=== PATIENT | male | born 1960 | race Caucasian/White ===

== ENCOUNTER → 2016-06-09 | Outpatient (REF) | payer OTHER ==
[2016-06-09 12:06] LABS: BASO % 0.3 % (0.0-1.0); EOS # 0.1 K/mm3 (0.0-0.50); EOS % 1.5 % (0.0-3.0); LARGE UNSTAINED CELL # 0.3 K/mm3 (0.0-0.4); LARGE UNSTAINED CELL % 3.3 % (0.0-4.0); LYMPH # 2.1 K/mm3 (1.5-4.5); LYMPH % 21.7 % (24.0-44.0); MEAN CORPUSCULAR HEMOGLOBIN 29.8 pg (27.0-33.0); MEAN CORPUSCULAR HGB CONC 33.6 g/dl (32.0-36.5); MEAN CORPUSCULAR VOLUME 88.7 fl (80.0-96.0); MONO # 0.4 K/mm3 (0.0-0.8); MONO % 4.4 % (0.0-5.0); NEUTROPHILS # 6.7 K/mm3 (1.8-7.7); NEUTROPHILS % 68.8 % (36.0-66.0); PLATELET COUNT, AUTOMATED 229 k/mm3 (150-450); RED CELL DISTRIBUTION WIDTH 13.1 % (11.5-14.5); WHITE BLOOD COUNT 9.8 K/mm3 (4.0-10.0)
[2016-06-09 12:13] LABS: ALBUMIN 3.7 GM/DL (3.2-5.2); ALBUMIN/GLOBULIN RATIO 1.32 (1.00-1.93); ALKALINE PHOSPHATASE 108 U/L (45-117); ALT/SGPT 34 U/L (12-78); ANION GAP 9 MEQ/L (8-16); AST/SGOT 21 U/L (15-37); BILIRUBIN,TOTAL 0.6 MG/DL (0.2-1.0); BLOOD UREA NITROGEN 16 MG/DL (7-18); CALCIUM LEVEL 9.1 MG/DL (8.5-10.1); CARBON DIOXIDE LEVEL 31 MEQ/L (21-32); CHLORIDE LEVEL 104 MEQ/L (98-107); CHOLESTEROL LEVEL 161 MG/DL (<200); CREATININE FOR GFR 0.83 MG/DL (0.70-1.30); FREE T4 1.01 NG/DL (0.76-1.46); GLOMERULAR FILTRATION RATE > 60.0 (>56); GLUCOSE, FASTING 134 MG/DL (70-105); POTASSIUM SERUM 3.8 MEQ/L (3.5-5.1); SODIUM LEVEL 144 MEQ/L (136-145); TOTAL PROTEIN 6.5 GM/DL (6.4-8.2); TRIGLYCERIDES LEVEL 190 MG/DL (<150); URIC ACID 5.3 MG/DL (3.5-7.2)
== END ==
LOC: M SFHCPLAZ 08:48
PROVIDERS: ATTEND Physician Assistant Medical
DX: I10 Essential (primary) hypertension (principal); M47.816 Spondylosis without myelopathy or radiculopathy, lumbar region; E03.9 Hypothyroidism, unspecified; E66.01 Morbid (severe) obesity due to excess calories; E78.5 Hyperlipidemia, unspecified; M10.9 Gout, unspecified

== ENCOUNTER → 2016-06-25 | Outpatient (CLI) | payer OTHER | LOC: M RAD 12:33 | PROVIDERS: ATTEND Physician Assistant Medical | DX: M47.816 Spondylosis without myelopathy or radiculopathy, lumbar region (principal); Z53.9 Procedure and treatment not carried out, unspecified reason ==

== ENCOUNTER → 2016-06-29 | Outpatient (CLI) | payer OTHER ==
--- NOTE | 2016-06-29 16:28 | REP ---
MRI LUMBAR SPINE WITHOUT CONTRAST: HISTORY: Degenerative disc disease. COMPARISON: 07/25/2013 Decreased signal intensity on T2-weighted images is present in the L2-3 through L4-5 intervertebral discs. The discs are decreased in height. These findings are consistent with disc degeneration. A diffuse disc bulge is present at the L1-2 level. There is minimal compression of the thecal sac. There is hypertrophy of the posterior articulating facets. The L1 nerves exit the neural foramina without compression. A diffuse disc bulge is present at the L2-3 level. There is hypertrophy of the ligamenta flava and posterior articulating facets. These findings produce minimal central canal stenosis. The L2 nerves exit the neural foramina without compression. A diffuse disc bulge is present at the L3-4 level. There is hypertrophy of the ligamenta flava and the posterior articulating facets. These findings produce minimal central canal stenosis. The L3 nerves exit the neural foramina without compression. A diffuse disc bulge is present at the L4-5 level. There is hypertrophy of the ligamenta flava and posterior articulating facets. These findings produce minimal central canal stenosis. The L4 nerves exit the neural foramina without compression. A diffuse disc bulge is present at the L5-S1 level. There is no thecal sac or nerve compression. There is hypertrophy of the posterior articulating facets. The L5 nerves exit the neural foramina without compression. The conus medullaris is normal in appearance terminating at the level of the L1-2 intervertebral disc. Increased signal intensity on T2-weighted images is present in the endplates of the L1 through L4 vertebral bodies. This represents degenerative change. IMPRESSION: 1. Diffuse disc bulge at the L1-2 level with minimal thecal sac compression. This is a new finding. 2. Minimal central canal stenosis at the L2-3 through L4-5 levels secondary to disc bulge, ligamentous and facet hypertrophy. 3. Diffuse disc bulge at the L5-S1 level without thecal sac or nerve compression. There is no other significant change. Signed by Oz Rushing MD 06/29/2016 04:29 P
== END ==
LOC: M RAD 14:19
PROVIDERS: ATTEND Physician Assistant Medical
DX: M47.816 Spondylosis without myelopathy or radiculopathy, lumbar region (principal); M51.26 Other intervertebral disc displacement, lumbar region; M48.06 Spinal stenosis, lumbar region

== ENCOUNTER → 2016-07-20 | Outpatient (CLI) | payer OTHER ==
--- NOTE | 2016-07-22 10:08 | SLEEPCENT ---
DATE OF PROCEDURE: 07/20/2016 ORDERED BY: Fabi Griffin Nocturnal polysomnography was performed for the titration of pressure therapy in this patient with a clinical diagnosis of obstructive sleep apnea syndrome confirmed by home testing revealing a respiratory event index of 60. For testing, the patient was fit with a ResMed Quattro full face mask of small size, 4 cm of water pressure were applied to the circuit and the lights were extinguished. 6 hours and 29 minutes of data were reviewed. There were only 16.5 minutes of sleep identified. Sleep latency was prolonged at 107 minutes. REM sleep was not achieved. Sleep architecture was unable to be assessed. Overall sleep efficiency was 4.3%. Patient's EKG showed a sinus rhythm with an average heart rate of 62 beats per minute. There were PVCs noted. EEG showed reasonably normal wave forms for those stages experienced and no focal events were identified. Multiple CPAP pressures were attempted. Bilevel therapy was also attempted. No optimal pressure could be identified based on the limited sleep during the test. IMPRESSION: Obstructive sleep apnea syndrome (G47.33). RECOMMENDATION: The patient should be encouraged to return for repeat titration, perhaps desensitization to CPAP would be helpful.
== END ==
LOC: M SLEEP 19:34
PROVIDERS: ATTEND Nurse Practitioner Adult Health
DX: G47.33 Obstructive sleep apnea (adult) (pediatric) (principal)

== ENCOUNTER → 2016-08-27 | Outpatient (REF) | payer OTHER ==
[2016-08-27 12:01] LABS: FREE T4 1.09 NG/DL (0.76-1.46)
== END ==
LOC: M SFHCPLAZ 08:49
PROVIDERS: ATTEND Physician Assistant Medical
DX: E03.9 Hypothyroidism, unspecified (principal); E11.8 Type 2 diabetes mellitus with unspecified complications

== ENCOUNTER → 2016-09-21 | Outpatient (CLI) | payer OTHER ==
[2016-09-21 12:50] LABS: FREE T4 0.99 NG/DL (0.76-1.46)
--- NOTE | 2016-09-21 12:57 | REP ---
Focused left breast sonography: History: Localized left breast pain. Positive family history of breast carcinoma. Findings: Scanning in the retroareolar region of the left breast where the patient indicates pain for the last 2 months demonstrate no evidence of cyst or mass. There is some hypoechoic retroareolar tissue consistent with minimal gynecomastia. Impression: BIRADS category 2 benign focused left breast sonography. Clinical followup is advised. Signed by Krzysztof Diallo MD 09/21/2016 03:17 P
== END ==
LOC: M LAB 11:16 → M RAD 11:16
PROVIDERS: ATTEND Physician Assistant Medical
DX: N64.4 Mastodynia (principal); N62 Hypertrophy of breast; E03.9 Hypothyroidism, unspecified

== ENCOUNTER → 2016-11-16 | Outpatient (REF) | payer OTHER ==
[2016-11-16 13:31] LABS: BASO % 0.4 % (0.0-1.0); EOS # 0.1 K/mm3 (0.0-0.50); EOS % 1.4 % (0.0-3.0); LARGE UNSTAINED CELL # 0.2 K/mm3 (0.0-0.4); LARGE UNSTAINED CELL % 2.6 % (0.0-4.0); LYMPH % 19.6 % (24.0-44.0); MEAN CORPUSCULAR HEMOGLOBIN 31.1 pg (27.0-33.0); MEAN CORPUSCULAR HGB CONC 34.2 g/dl (32.0-36.5); MONO # 0.6 K/mm3 (0.0-0.8); MONO % 6.4 % (0.0-5.0); NEUTROPHILS # 6.1 K/mm3 (1.8-7.7); NEUTROPHILS % 69.5 % (36.0-66.0); PLATELET COUNT, AUTOMATED 228 k/mm3 (150-450); RED CELL DISTRIBUTION WIDTH 13.8 % (11.5-14.5); WHITE BLOOD COUNT 8.8 K/mm3 (4.0-10.0)
[2016-11-16 13:53] LABS: PROLACTIN 8.8 NG/ML (2.1-17.7)
[2016-11-16 14:17] LABS: ALBUMIN 3.8 GM/DL (3.2-5.2); ALBUMIN/GLOBULIN RATIO 1.19 (1.00-1.93); ALKALINE PHOSPHATASE 113 U/L (45-117); ALT/SGPT 32 U/L (12-78); ANION GAP 7 MEQ/L (8-16); AST/SGOT 19 U/L (15-37); BILIRUBIN,TOTAL 0.6 MG/DL (0.2-1.0); BLOOD UREA NITROGEN 16 MG/DL (7-18); CALCIUM LEVEL 9.1 MG/DL (8.5-10.1); CARBON DIOXIDE LEVEL 29 MEQ/L (21-32); CHLORIDE LEVEL 106 MEQ/L (98-107); CREATININE FOR GFR 0.92 MG/DL (0.70-1.30); GLOMERULAR FILTRATION RATE > 60.0 (>56); GLUCOSE, FASTING 128 MG/DL (70-105); MAGNESIUM LEVEL 2.4 MG/DL (1.8-2.4); SODIUM LEVEL 142 MEQ/L (136-145)
[2016-11-16 22:38] LABS: MICROSCOPIC INDICATED? MAN YES (NO)
[2016-11-16 22:45] LABS: RBC, URINE NONE SEEN /hpf (0-3); SQUAMOUS EPITHELIAL CELL URINE SMALL AMOUNT /hpf (SMALL AMT); TRANSITIONAL EPI CELLS, URINE SMALL AMOUNT /hpf
[2016-11-16 22:46] LABS: GRANULAR CAST, URINE 0-1 /lpf
[2016-11-16 22:47] LABS: BACTERIA, URINE NONE SEEN
[2016-11-16 22:48] LABS: HYALINE CAST, URINE TNTC /lpf (0-1)
[2016-11-16 22:49] LABS: CALCIUM OXALATE CRYSTALS,URINE LARGE AMOUNT /hpf
[2016-11-16 22:50] LABS: MICROSCOPIC EXAM PERFORMED
== END ==
LOC: M SFHCPLAZ 10:41
PROVIDERS: ATTEND Family Medicine
DX: I10 Essential (primary) hypertension (principal); E11.8 Type 2 diabetes mellitus with unspecified complications; N62 Hypertrophy of breast; Z12.5 Encounter for screening for malignant neoplasm of prostate

== ENCOUNTER → 2016-11-27 | Outpatient (CLI) | payer OTHER ==
--- NOTE | 2016-11-27 13:04 | REP ---
Left shoulder three views: Comparison is the left humerus and 02/10/2007. The acromioclavicular joint is unremarkable. The glenohumeral joint is unremarkable. Mineralization is normal. There is no narrowing of the subacromial space. No cortical eburnation. No calcifications. No fracture or dislocation. Impression: Negative left shoulder. No narrowing of the subacromial space. No ligamentous or bursal calcifications. Signed by Clay Mcdowell MD 11/27/2016 12:55 P
== END ==
LOC: M RAD 12:43
PROVIDERS: ATTEND Family Medicine
DX: M75.42 Impingement syndrome of left shoulder (principal)

== ENCOUNTER → 2017-01-28 | Outpatient (CLI) | payer OTHER ==
--- NOTE | 2017-01-29 00:25 | ECWPNPC ---
PATIENT NAME: RADHA GARY : 1960 GENDER: MALE VISIT DATE: 01/28/2017 DISCHARGE DATE: 01/28/17 1409 VISIT LOCKED DATE TIME: PHYSICIAN: ROLDAN MCCORMICK PHYSICIAN PAGER NO: [phone] RESOURCE: ROLDAN MCCORMICK REASON FOR APPOINTMENT 1. BACK/SHOULDER HISTORY OF PRESENT ILLNESS NEW PATIENT CONSULT: 56 Y/O MALE REFERRED BY DR. ZABALA FOR EPIDURAL TRIAL FOR CHRONIC LOW BACK PAIN.PAIN BEGAN APPROXIMATLEY 20 YEARS AGO AFTER LIFTING HEAVY PACKAGES.PAIN IS LOCATED LEFT LOW BACK AND RADIATES INTO LEFT ANTERIOR THIGH.HAS BEEN TRIALED ON GABAPENTIN 100MG TID AND THIS IS NOT HELPING.PT WAS TRIALED RECENTLY BUT DIDNT HELP AND AGGREVATED PAIN.PAIN IS AGGREVATED BY PROLONGED STANDING OR SITTING.PAIN IS RELIEVED SOMEWHAT WITH LAYING DOWN ON LEFT SIDE.DENIES SUDDEN WEIGHT GAIN OR LOSS.NO RECENT FEVER OR ILLNESS.DENIES BOWEL OR BLADDER INCONTINENCE.RATING PAIN VAS 4/10. WHEN DID YOUR PAIN FIRST START? . BRIEFLY DESCRIBE HOW YOUR PAIN STARTED? . HOW DOES YOUR PAIN CHANGE WITH TIME? . DOES YOUR PAIN AWAKEN YOU FROM SLEEP? . HOW MANY HOURS OF SLEEP DO YOU NORMALLY GET? . ANY DIAGNOSTIC TESTING? . FACILITY WHERE TESTS WERE DONE? ____. PAIN TREATMENT TREATMENT YES CANCER HAVE YOU EVER HAD ANY TYPE OF CANCER?NO NO. PAIN SCREENING: PATIENT HAS A COMPLAINT OF ACUTE OR CHRONIC PAIN :YES FALL RISK SCREENING: SCREENING :NO FALLS IN THE PAST YEAR LEE INVENTORY: QUESTIONNAIRE ASSESSEDTBD SCORE VALUE CALCULATED TBD CURRENT MEDICATIONS TAKING EXCEDRIN EXTRA STRENGTH 250-250-65 MG TABLET 2 TABLETS NEEDED ORALLY TWICE A DAY TAKING BLOOD GLUCOSE TEST - STRIP ONETOUCH VERIO IN VITRO - E11.9 DAILY TAKING LANCETS - MISCELLANEOUS E11.9 - ONE TOUCH INTRADERMALLY DAILY WITH VERIO METER TAKING NORVASC 5 MG TABLET 1 TABLET ORALLY ONCE A DAY TAKING ATENOLOL 25 MG TABLET 1 TABLET ORALLY ONCE A DAY TAKING LISINOPRIL 40 MG TABLET 1 TABLET ORALLY ONCE A DAY TAKING ALLOPURINOL 300 MG TABLET 1 TABLET ORALLY QD TAKING ZOCOR 20 MG TABLET 1 TABLET ORALLY ONCE A DAY TAKING LEVOTHYROXINE SODIUM 100 MCG TABLET 1 TABLET ON AN EMPTY STOMACH IN THE MORNING ORALLY ONCE A DAY TAKING METFORMIN HCL ER 500 MG TABLET EXTENDED RELEASE 24 HOUR 1 TABLET ORALLY DAILY TAKING ONETOUCH VERIO - STRIP DIRECTED IN VITRO DX: E11.8 DAILY TAKING TRAZODONE HCL 50 MG TABLET 1 TABLET ORALLY BEFORE BEDTIME, AGAIN IN 3-4H IF NOT ASLEEP TAKING PROZAC 20 MG CAPSULE 2 CAPSULE IN THE MORNING ORALLY ONCE A DAY TAKING GABAPENTIN 100 MG CAPSULE DIRECTED ORALLY THREE TIMES DAILY TAKING CYCLOBENZAPRINE HCL 10 MG TABLET TAKE ONE TABLET BY MOUTH 3 TIMES A DAY ORALLY THREE TIMES A DAY NOT-TAKING FLEXERIL 10 MG TABLET 1 TABLET ORALLY THREE TIMES A DAY MEDICATION LIST REVIEWED AND RECONCILED WITH THE PATIENT PAST MEDICAL HISTORY GOUT, RECURRENT PODAGRA HYPERTENSION ANEMIA, SECONDARY TO IRON DEFICIENCY-JUNE 2006 EGD/COLONOSCOPY/DIVERTICULOSIS, ANTRITIS, DUODENITIS-SULLY OBESITY DEPRESSION INSOMNIA DJD, CERVICAL AND LUMBAR HYPERLIPIDEMIA 2B HYPOTHYROIDISM T2DM NID OBESITY, MORBID NONALCOHOLIC FATTY LIVER DISEASE-11/2010 NEGATIVE WORKUP, MILD BY 03/2015 CT A/P HYPOTHYROIDISM, AUTOIMMUNE LUMBAR DJD, MINIMAL CANAL STENOSIS L2-5, L5/S1 BULGE S COMPRESSION BY 06/2016 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 03/2012/ SMALL TUBULAR ADENOMAE-SULLY R URETHRAL STONE-PASSED ON OWN C FLOMAX L RENAL CYST-1 CM BY 03/2015 CT A/P ROSA MARIA, SEVERE-07/2016 SPLIT NPSG-RDI 102, SAO2 TO 86%-UNABLE TO FIND OPTIMAL PRESSURE-RECHLIN HEADACHES ALLERGIES AVELOX: NAUSEA: SIDE EFFECTS PENICILLIN (FOR ALLERGIES USE ONLY): DOES NOT WORK, OVERUSED: LACK OF THERAPEUTIC EFFECT HYDROCHLOROTHIAZIDE: VERTIGO: SIDE EFFECTS SURGICAL HISTORY CYST REMOVED RIGHT WRIST LEFT ELBOW BURSA SAC SURGERY LIPOMA REMOVED LUQ ABDOMEN 2014 COLONOSCOPY FAMILY HISTORY FATHER: , DIAGNOSED WITH CANCER MOTHER: , DIAGNOSED WITH CANCER 2 BROTHER(S) , 3 SISTER(S) . 1 SON(S) , 2 DAUGHTER(S) . 1 SISTER FROM LIVER FAILURE R/T ALCOHOL1 DAUGHTER STILLBORN. SOCIAL HISTORY GENERAL: TOBACCO USE ARE YOU A:NONSMOKER ALCOHOL SCREENING POINTS0 INTERPRETATIONNEGATIVE RECREATIONAL DRUG USE DRUG USE?NO YAZDANISM [id number] NONE LANGUAGE LANGUAGES SPOKEN:MONGOLIAN LEARNING BARRIERS / SPECIAL NEEDS BARRIERS TO LEARNING?NO HEARING IMPAIRED?NO VISION IMPAIRED?YES :CORRECTIVE LENSES COGNITIVELY IMPAIRED?NO READINESS TO LEARN?YES LEARNING PREFERENCES?NO LEARNING CAPABILITIES PRESENT?YES EMOTIONAL BARRIERS?NO SPECIAL DEVICES?NO [employer] [place] SUPPORT NEEDED?NO PAIN CLINIC PFS, CLERGY, PUBLIC HEALTH REFERRALS PFS REFERRAL NEEDED?NO CLERGY REFERRAL NEEDED?NO PUBLIC HEALTH REFERRAL NEEDED?NO WAS THE PROVIDER NOTIFIED OF ANY PERTINENT INFO?NO HAS THE PATIENT BEEN EDUCATED REGARDING HIS/HER PLAN OF CARE?YES HAS THE PATIENT BEEN EDUCATED REGARDING PAIN, THE RISK FOR PAIN, THE IMPORTANCE OF EFFECTIVE PAIN MANAGEMENT, AND THE PAIN ASSESSMENT PROCESS?YES PATIENT: ____. ADVANCE DIRECTIVES HEALTH CARE PROXY?NO WOULD YOU LIKE MORE INFORMATION?NO DO YOU HAVE A DNR?NO WOULD YOU LIKE MORE INFORMATION?NO LIVING WILL?NO WOULD YOU LIKE MORE INFORMATION?NO POWER OF LEAD RETAIL SALES ASSOCIATE?NO WOULD YOU LIKE MORE INFORMATION?NO HOSPITALIZATION/MAJOR DIAGNOSTIC PROCEDURE LEFT ELBOW INFECTION REVIEW OF SYSTEMS REVIEWED BY: PROVIDER: ROLDAN NOEL . CONSTITUTIONAL: ANY CHANGE IN YOUR MEDICAL CONDITION? NO . CHILLS NO . FEVER NO . INFECTION: DO YOU HAVE NEW INFECTIONS? NO . DO YOU HAVE HISTORY OF MRSA? NO . MUSCULOSKELETAL: ANY NEW PATTERNS OF PAIN OR NUMBNESS? NO . SYTEMIC LUPUS NO . GASTROENTEROLOGY: ANY NEW CHANGE IN BOWEL CONTROL? NO . BARRETTS ESOPHAGUS NO . CIRRHOSIS NO . HEPATITIS NO . LIVER FAILURE NO . ACID REFLUX NO . UNEXPLAINED WEIGHT LOSS NO . GENITOURINARY: ANY NEW CHANGE IN BLADDER CONTROL? NO . IS THERE A CHANCE YOU COULD BE ? NO . HEMATOLOGY/LYMPH: DO YOU TAKE ANY BLOOD THINNERS? (FOR EXAMPLE- COUMADIN, PLAVIX, AGGRENOX, PLATEL, PRADAXA, OR XARELTO) NO . WHEN WAS YOUR LAST DOSE? DATE: TIME: . LOW PLATELET COUNT NO . SICKLE CELL DISEASE NO . VON WILLIEBRANDS NO . FACTOR V LEIDEN NO . THALLASEMIA NO . ANEMIA NO . EASY BRUISING NO . NEUROLOGY: HAVE YOU FALLEN IN THE PAST 6 MONTHS? NO . ANY NEW EXTREMITY NUMBNESS OR WEAKNESS? NO . HEAD INJURY NO . DEMENTIA NO . CEREBRAL PALSY NO . MULTIPLE SCLEROSIS NO . DIZZINESS NO . HEADACHE YES . STROKES NO . VERTIGO NO . CARDIOLOGY: DO YOU HAVE A PACEMAKER OR DEFIBRILLATOR? NO . ANGINA NO . HEART ATTACK NO . HEART SURGERY NO . CONGESTIVE HEART FAILURE/FLUID OVERLOAD NO . CHEST PAIN NO . HIGH BLOOD PRESSURE ON MEDICATION(S) . IRREGULAR HEART BEAT NO . RESPIRATORY: HAVE YOU BEEN SICK IN THE PAST WEEK? NO . FEVER NO . FLU LIKE SYMPTOMS? NO . CPAP NO . BYPAP NO . ASTHMA NO . EMPHYSEMA NO . CHRONIC LUNG DISEASES NO . SHORTNESS OF BREATH ON EXERTION YES . DO YOU USE ANY TYPE OF TOBACCO (SMOKE, SMOKELESS, CHEW)? NO . COUGH NO . SNORING NO . INTEGUMENTARY: DO YOU HAVE ANY RASHES OR OPEN SORES? NO . ALLERGIC/IMMUNO: ARE YOU ALLERGIC TO SHELLFISH OR IV DYE? NO . ANY NEW ALLERGIES? NO . PSYCHIATRIC: DO YOU HAVE THOUGHTS OF HURTING YOURSELF OR SOMEONE ELSE? NO . ARE YOU ABUSED, NEGLECTED, OR IN AN UNSAFE ENVIRONMENT? NO . ENDOCRINOLOGY: ARE YOU DIABETIC? YES . THYROID DISORDER HYPOTHYROID . OTHER: DO YOU NEED ANY PRESCRIPTIONS? NO . IF YES, PLEASE LIST: ____ . ANY NEW PROBLEMS WITH YOUR MEDICATIONS? NO . WHEN DID YOU LAST EAT? ____ . WHEN DID YOU LAST DRINK? ____ . WHAT DID YOU LAST DRINK? ____ . NAME OF PERSON DRIVING YOU HOME? ____ . DO YOU HAVE ANY OTHER QUESTIONS OR CONCERNS NO . VITAL SIGNS WT 364 LBS, HT 73 IN, BMI 48.02 INDEX, BP 140/98 MM HG, HR 63 /MIN, RR 18 /MIN, TEMP 97.8 F, OXYGEN SAT % 94%, SAFE IN ENV? (Y/N) YES, REVIEWED BY: NATHALIE(DONE AT 1314). EXAMINATION GENERAL EXAMINATION: GENERAL APPEARANCE:COMFORTABLE. PSYCHAFFECT NORMAL. NECK:TRACHEA MIDLINE. NO CERVICAL OR SUPRACLAVICULAR LYMPHADENOPATHY NOTED. LUNGS:LUNG MARROQUIN ARE CLEAR TO AUSCULTATION BILATERALLY. GOOD MOVEMENT OF AIR. HEART:S1, S2 IN A REGULAR RATE AND RHYTHM. NO SIGNIFICANT MURMURS, RUBS OR GALLOPS NOTED. LUMBAR SPINE/LOWER BACK: PALPATION:TENDER OVER LEFT L1/2-L2/3 FACET/PARASPINAL., NO SI JOINT TENDERNESS. MOTOR SYSTEM:5/5 BLE. SENSORY EXAM:REPORTS DECREASE IN SENSATION TO LIGHT TOUCH LEFT THIGH. MRI L/S [id number]. THORACIC SPINE/UPPER BACK: MYOFASCIAL TRIGGER POINTS:LEFT LOWER THORACIC PARASPINAL/SCAPULAR. ASSESSMENTS DEGENERATIVE DISC DISEASE, LUMBAR - M51.36 (PRIMARY) LUMBAR FACET ARTHROPATHY - M12.88 TREATMENT DEGENERATIVE DISC DISEASE, LUMBAR NOTES: LESI L4/5/INTRALAMINAR,WHAT IS LUMBAR EPIDURAL INJECTION? MATERIAL WAS PRINTED,LUMBAR EPIDURAL INJECTION: RECOVERY AT HOME MATERIAL WAS PRINTED,LUMBAR EPIDURAL INJECTION: YOUR PROCEDURE MATERIAL WAS PRINTED. PREVENTIVE MEDICINE PAIN CLINIC TEACHING: PROCEDURE TEACHING LUMBAR EPIDURAL STEROID INJECTION PRE-PROCEDURE TEACHING DONE. ADDITIONAL INFORMATION GIVEN. PATIENT VERBALIZES UNDERSTANDING.. PROCEDURE CODES FA211 ESTABILISHED PATIENT [facility] CHARGE DISPOSITION & COMMUNICATION FOLLOW UP 2WK POST (REASON: LESI L4/5/INTRALAMINAR) ELECTRONICALLY SIGNED BY SADIE WARNER ON 01/28/2017 AT 04:40 PM EDT DISCLAIMER : THIS IS A VISIT SUMMARY EXTRACTED FROM THE [employer] CHART. IT IS NOT A COPY OF THE [employer] PROGRESS NOTE. SHANIKA
== END ==
LOC: M PAIN 13:00
PROVIDERS: ATTEND Nurse Practitioner Family
DX: M51.36 Other intervertebral disc degeneration, lumbar region (principal); M12.88 Other specific arthropathies, not elsewhere classified, other specified site; M54.5 Low back pain; G89.29 Other chronic pain; I10 Essential (primary) hypertension; E11.8 Type 2 diabetes mellitus with unspecified complications; E03.9 Hypothyroidism, unspecified; E78.2 Mixed hyperlipidemia; F32.9 Major depressive disorder, single episode, unspecified; Z79.899 Other long term (current) drug therapy; Z79.84 Long term (current) use of oral hypoglycemic drugs; Z88.0 Allergy status to penicillin; Z88.1 Allergy status to other antibiotic agents; Z88.8 Allergy status to other drugs, medicaments and biological substances

== ENCOUNTER → 2017-02-10 | Outpatient (CLI) | payer OTHER ==
[~2017-02-10] MED LIST: ISOVUE-M 300 61% 15ML VIAL (Q9967) As Ordered ONE; LIDOCAINE 1% SDV INJ 30 ML VIAL As Ordered ONE; diazePAM 5 MG TAB As Ordered ONE; methylPREDNISolone SUSP 40 MG/ML (DEPO-medrol) VIAL (J1030) As Ordered ONE; oxyCODONE 5MG TAB As Ordered ONE
--- NOTE | 2017-02-10 13:19 | REP ---
Partial lumbar spine series: Single view. History: Lumbar epidural steroid injection for pain. 12 seconds of fluoroscopy time is reported. Findings: A single fluoroscopically obtained last image hold spot radiograph of the lumbar spine documents needle position and contrast injection associated with injection procedure. Signed by Krzysztof Diallo MD 02/10/2017 01:27 P
--- NOTE | 2017-02-16 00:23 | ECWPNPC ---
PATIENT NAME: RADHA GARY : 1960 GENDER: MALE VISIT DATE: 02/10/2017 DISCHARGE DATE: 02/10/17 1238 VISIT LOCKED DATE TIME: PHYSICIAN: HEYDI IBARRA PHYSICIAN PAGER NO: [phone] RESOURCE: HEYDI IBARRA REASON FOR APPOINTMENT 1. LESI L4/5/INTRALAMINAR HISTORY OF PRESENT ILLNESS HISTORY OF PRESENT ILLNESS: PAIN THE PATIENT DESCRIBES THE PAIN... FALL RISK SCREENING: SCREENING :NO FALLS IN THE PAST YEAR CURRENT MEDICATIONS TAKING EXCEDRIN EXTRA STRENGTH 250-250-65 MG TABLET 2 TABLETS NEEDED ORALLY TWICE A DAY, NOTES: 02-09-17899 TAKING BLOOD GLUCOSE TEST - STRIP ONETOUCH VERIO IN VITRO - E11.9 DAILY TAKING LANCETS - MISCELLANEOUS E11.9 - ONE TOUCH INTRADERMALLY DAILY WITH VERIO METER TAKING NORVASC 5 MG TABLET 1 TABLET ORALLY ONCE A DAY, NOTES: 02-10-17699 TAKING ATENOLOL 25 MG TABLET 1 TABLET ORALLY ONCE A DAY, NOTES: 02-10-17799 TAKING LISINOPRIL 40 MG TABLET 1 TABLET ORALLY ONCE A DAY TAKING ALLOPURINOL 300 MG TABLET 1 TABLET ORALLY QD, NOTES: 02-09-17699 TAKING ZOCOR 20 MG TABLET 1 TABLET ORALLY ONCE A DAY, NOTES: [id number] TAKING METFORMIN HCL ER 500 MG TABLET EXTENDED RELEASE 24 HOUR 1 TABLET ORALLY DAILY, NOTES: 02-09-17799 TAKING ONETOUCH VERIO - STRIP DIRECTED IN VITRO DX: E11.8 DAILY TAKING TRAZODONE HCL 50 MG TABLET 1 TABLET ORALLY BEFORE BEDTIME, AGAIN IN 3-4H IF NOT ASLEEP, NOTES: 02-09-172099 TAKING PROZAC 20 MG CAPSULE 2 CAPSULE IN THE MORNING ORALLY ONCE A DAY, NOTES: 02-09-17799 TAKING GABAPENTIN 100 MG CAPSULE DIRECTED ORALLY THREE TIMES DAILY, NOTES: 02-09-172099 TAKING CYCLOBENZAPRINE HCL 10 MG TABLET TAKE ONE TABLET BY MOUTH 3 TIMES A DAY ORALLY THREE TIMES A DAY, NOTES: 02-09-172099 TAKING LEVOTHYROXINE SODIUM 100 MCG TABLET 1 TABLET ON AN EMPTY STOMACH IN THE MORNING ORALLY ONCE A DAY, NOTES: 02-10-17699 UNKNOWN FLEXERIL 10 MG TABLET 1 TABLET ORALLY THREE TIMES A DAY MEDICATION LIST REVIEWED AND RECONCILED WITH THE PATIENT PAST MEDICAL HISTORY GOUT, RECURRENT PODAGRA HYPERTENSION ANEMIA, SECONDARY TO IRON DEFICIENCY-JUNE 2006 EGD/COLONOSCOPY/DIVERTICULOSIS, ANTRITIS, DUODENITIS-SULLY OBESITY DEPRESSION INSOMNIA DJD, CERVICAL AND LUMBAR HYPERLIPIDEMIA 2B HYPOTHYROIDISM T2DM NID OBESITY, MORBID NONALCOHOLIC FATTY LIVER DISEASE-11/2010 NEGATIVE WORKUP, MILD BY 03/2015 CT A/P HYPOTHYROIDISM, AUTOIMMUNE LUMBAR DJD, MINIMAL CANAL STENOSIS L2-5, L5/S1 BULGE S COMPRESSION BY 06/2016 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 CONSTITUTIONAL: ANY CHANGE IN YOUR MEDICAL CONDITION? NO . CHILLS NO . FEVER NO . INFECTION: DO YOU HAVE NEW INFECTIONS? NO . DO YOU HAVE HISTORY OF MRSA? NO . MUSCULOSKELETAL: ANY NEW PATTERNS OF PAIN OR NUMBNESS? NO . GASTROENTEROLOGY: ANY NEW CHANGE IN BOWEL CONTROL? NO . GENITOURINARY: ANY NEW CHANGE IN BLADDER CONTROL? NO . IS THERE A CHANCE YOU COULD BE ? NO . HEMATOLOGY/LYMPH: DO YOU TAKE ANY BLOOD THINNERS? (FOR EXAMPLE- COUMADIN, PLAVIX, AGGRENOX, PLATEL, PRADAXA, OR XARELTO) NO . WHEN WAS YOUR LAST DOSE? DATE: TIME: . NEUROLOGY: HAVE YOU FALLEN IN THE PAST 6 MONTHS? NO . ANY NEW EXTREMITY NUMBNESS OR WEAKNESS? NO . CARDIOLOGY: DO YOU HAVE A PACEMAKER OR DEFIBRILLATOR? NO . RESPIRATORY: HAVE YOU BEEN SICK IN THE PAST WEEK? NO . FEVER NO . FLU LIKE SYMPTOMS? NO . COUGH NO . INTEGUMENTARY: DO YOU HAVE ANY RASHES OR OPEN SORES? NO . ALLERGIC/IMMUNO: ARE YOU ALLERGIC TO SHELLFISH OR IV DYE? NO . ANY NEW ALLERGIES? NO . PSYCHIATRIC: DO YOU HAVE THOUGHTS OF HURTING YOURSELF OR SOMEONE ELSE? NO . ARE YOU ABUSED, NEGLECTED, OR IN AN UNSAFE ENVIRONMENT? NO . ENDOCRINOLOGY: ARE YOU DIABETIC? YES FS 140 . OTHER: DO YOU NEED ANY PRESCRIPTIONS? NO . IF YES, PLEASE LIST: ____ . ANY NEW PROBLEMS WITH YOUR MEDICATIONS? NO . WHEN DID YOU LAST EAT? ____1230 THIS MORNING . WHEN DID YOU LAST DRINK? ____8 AM THIS MORNING . WHAT DID YOU LAST DRINK? ____ . NAME OF PERSON DRIVING YOU HOME? ____JANICE - . DO YOU HAVE ANY OTHER QUESTIONS OR CONCERNS NO . VITAL SIGNS WT 363 LBS, HT 73 IN, BMI 47.89 INDEX, BP 142/90 MM HG, HR 69 /MIN, RR 18 /MIN, TEMP 96.9 F, OXYGEN SAT % 100, REVIEWED BY: NL. ASSESSMENTS INTERVERTEBRAL DISC DISORDER WITH RADICULOPATHY OF LUMBAR REGION - M51.16 (PRIMARY) PROCEDURES PRE PROCEDURE DIAGNOSIS LUMBAR DISC DISORDER WITH RADICULOPATHY POST PROCEDURE DIAGNOSIS LUMBAR DISC DISORDER WITH RADICULOPATHY PROCEDURE LUMBAR EPIDURAL STEROID INJECTION UNDER FLUOROSCOPIC GUIDANCE SURGEON DR. HEYDI IBARRA RADIATOR MECHANIC NONE ANESTHESIA LOCAL PRE PROCEDURE NOTE THE PATIENT HAS A HISTORY OF CHRONIC LOW BACK PAIN. I EVALUATE THE PATIENT AND REVIEWED THE CHART. I WENT OVER THE RISKS, ALTERNATIVES, AND BENEFITS ASSOCIATED WITH THIS PROCEDURE. THE PATIENT WOULD LIKE TO PROCEED AND GIVE CONSENT TO PERFORMED THE PROCEDURE. THE PATIENT DENIES UNEXPLAINABLE WEIGHT LOSS, FEVER, CHILLS, OR NEW CHANGES IN URINARY OR BOWEL CONTROL. DESCRIPTION OF PROCEDURE THE PATIENT WAS BROUGHT TO THE PROCEDURE ROOM AND PLACED IN THE PRONE POSITION. THE LUMBOSACRAL AREA WAS CLEANED WITH BETADINE SOLUTION AND DRAPED ASEPTICALLY. THE PROCEDURE WAS DONE UNDER STERILE CONDITIONS. I CHECKED LATERALITY AND THE LEVEL WHERE THE PROCEDURE WAS GOING TO BE PERFORMED WITH THE PATIENT AND THE SUPPORTING STAFF AT THE MOMENT OF THE TIME OUT IN THE PROCEDURE ROOM. UNDER FLUOROSCOPIC GUIDANCE, THE TARGET POINT WAS SELECTED AT THE INTERLAMINAR LEVEL OF L4-L5. LIDOCAINE WAS USED TO NUMB THE SKIN AND THE SUBCUTANEOUS TISSUE BELOW IT. EPIDURAL TUOHY NEEDLE, 17-GAUGE, WAS ADVANCED UNDER FLUOROSCOPIC GUIDANCE AND FOLLOWING PATIENT FEEDBACK UNTIL THE EPIDURAL SPACE WAS REACHED, 7 CM DEEP INTO THE SKIN BY THE LOSS OF RESISTANCE TECHNIQUE. ISOVUE M DYE 30%, 0.25 ML, WAS INJECTED SHOWING ADEQUATE SPREAD OF THE DYE. THEN, A SOLUTION OF 3 ML OF NORMAL SALINE WITH DEPO-MEDROL 60 MG WAS INJECTED SLOWLY FOLLOWING PATIENT FEEDBACK. THERE WAS NO EVIDENCE OF BLOOD, PARESTHESIA OR CEREBROSPINAL FLUID DURING THE PROCEDURE. THE PATIENT WAS SENT TO THE RECOVERY ROOM. THE PATIENT WAS MOVING THE EXTREMITIES AND DOING WELL. THERE WAS NO COMPLICATION DURING THE PROCEDURE. FLUOROSCOPY TIME WAS 12 SECONDS. POST PROCEDURE NOTE THE PATIENT WILL BE SEEN IN A FOLLOW UP IN THE NEXT FEW WEEKS. INSTRUCTIONS WERE GIVEN, QUESTIONS WERE ANSWERED, AND THE PATIENT EXPRESSED UNDERSTANDING AND AGREES WITH THE PLAN. I, ROSANGELA KASPER, DOCUMENTED THE ABOVE INFORMATION ACTING A SCRIBE FOR DR. IBARRA. I HAVE REVIEWED THE ABOVE DOCUMENT, WRITTEN BY ROSANGELA KASPER SCRIBE AND I VERIFY THAT IT IS [facility] FLUORO GUIDE SPINE INJECTION (PAIN)[id number] PROCEDURE CODES 14150 LUMBAR/SACRAL W/ IMAGING 6045F RADXPS IN END [id number] PXD DISPOSITION & COMMUNICATION FOLLOW UP 3 WEEKS ELECTRONICALLY SIGNED BY HEYDI IBARRA MD ON 02/15/2017 AT 03:38 PM EDT DISCLAIMER : THIS IS A VISIT SUMMARY EXTRACTED FROM THE [employer] CHART. IT IS NOT A COPY OF THE [employer] PROGRESS NOTE. MTDD
== END ==
LOC: M PAIN 10:15
PROVIDERS: ATTEND Anesthesiology
DX: G89.29 Other chronic pain (principal); M51.16 Intervertebral disc disorders with radiculopathy, lumbar region; M54.5 Low back pain; E03.9 Hypothyroidism, unspecified; I10 Essential (primary) hypertension; F32.9 Major depressive disorder, single episode, unspecified; E11.8 Type 2 diabetes mellitus with unspecified complications; Z79.84 Long term (current) use of oral hypoglycemic drugs; Z79.899 Other long term (current) drug therapy; Z88.0 Allergy status to penicillin; Z88.1 Allergy status to other antibiotic agents; Z88.8 Allergy status to other drugs, medicaments and biological substances
CPT/HCPCS: 62323; J1030; Q9967

== ENCOUNTER → 2017-02-25 | Outpatient (REF) | payer OTHER ==
[2017-02-25 16:06] LABS: CALCIUM OXALATE CRYSTALS SMALL
[2017-02-25 17:55] LABS: ALBUMIN 3.8 GM/DL (3.2-5.2); ALBUMIN/GLOBULIN RATIO 1.31 (1.00-1.93); ALKALINE PHOSPHATASE 117 U/L (45-117); ALT/SGPT 33 U/L (12-78); ANION GAP 7 MEQ/L (8-16); AST/SGOT 17 U/L (15-37); BILIRUBIN,TOTAL 0.5 MG/DL (0.2-1.0); BLOOD UREA NITROGEN 19 MG/DL (7-18); CALCIUM LEVEL 9.2 MG/DL (8.5-10.1); CARBON DIOXIDE LEVEL 32 MEQ/L (21-32); CHLORIDE LEVEL 104 MEQ/L (98-107); CHOLESTEROL LEVEL 162 MG/DL (<200); CREATININE FOR GFR 0.89 MG/DL (0.70-1.30); GLOMERULAR FILTRATION RATE > 60.0 (>56); GLUCOSE, FASTING 127 MG/DL (70-105); POTASSIUM SERUM 4.1 MEQ/L (3.5-5.1); SODIUM LEVEL 143 MEQ/L (136-145); TOTAL PROTEIN 6.7 GM/DL (6.4-8.2); TRIGLYCERIDES LEVEL 209 MG/DL (<150)
[2017-02-28 00:06] LABS: BENZODIAZEPINES, URINE SCREEN Negative ng/mL (Cutoff=200); METHADONE, URINE SCREEN Negative ng/mL (Cutoff=300); pH, URINE 5.4 (4.5-8.9)
== END ==
LOC: M SFHCPLAZ 12:50
PROVIDERS: ATTEND Family Medicine
DX: E11.8 Type 2 diabetes mellitus with unspecified complications (principal); I10 Essential (primary) hypertension; Z12.5 Encounter for screening for malignant neoplasm of prostate

== ENCOUNTER → 2017-05-20 | Outpatient (REF) | payer OTHER ==
[2017-05-20 16:39] LABS: BASO % 0.3 % (0.0-1.0); EOS # 0.1 10^3/uL (0.0-0.50); EOS % 1.6 % (0.0-3.0); HEMATOCRIT 42.2 % (42.0-52.0); HEMOGLOBIN 14.2 g/dl (14.0-18.0); IMMATURE GRANULOCYTE % 0.3 % (0-0); LYMPH % 24.7 % (24.0-44.0); MEAN CORPUSCULAR HEMOGLOBIN 30.5 pg (27.0-33.0); MEAN CORPUSCULAR HGB CONC 33.6 g/dl (32.0-36.5); MEAN CORPUSCULAR VOLUME 90.6 fl (80.0-96.0); MONO # 0.6 10^3/uL (0.0-0.8); MONO % 7.1 % (0.0-5.0); NEUTROPHILS # 5.3 10^3/uL (1.8-7.7); PLATELET COUNT, AUTOMATED 231 10^3/uL (150-450); RED BLOOD COUNT 4.66 10^6/uL (4.30-6.10); RED CELL DISTRIBUTION WIDTH 13.1 % (11.5-14.5); WHITE BLOOD COUNT 7.9 10^3/uL (4.0-10.0)
[2017-05-20 18:21] LABS: ESTIMATED AVERAGE GLUCOSE 131 MG/DL (60-110); HEMOGLOBIN A1c 6.2 %
[2017-05-20 18:39] LABS: ALBUMIN 3.8 GM/DL (3.2-5.2); ALBUMIN/GLOBULIN RATIO 1.27 (1.00-1.93); ALKALINE PHOSPHATASE 100 U/L (45-117); ALT/SGPT 33 U/L (12-78); ANION GAP 8 MEQ/L (8-16); AST/SGOT 20 U/L (7-37); BILIRUBIN,TOTAL 0.4 MG/DL (0.2-1.0); BLOOD UREA NITROGEN 13 MG/DL (7-18); CALCIUM LEVEL 8.5 MG/DL (8.5-10.1); CARBON DIOXIDE LEVEL 32 MEQ/L (21-32); CHLORIDE LEVEL 106 MEQ/L (98-107); CREATININE FOR GFR 0.91 MG/DL (0.70-1.30); FERRITIN 96 NG/ML (26-388); FREE T4 1.22 NG/DL (0.76-1.46); GLOMERULAR FILTRATION RATE > 60.0 (>56); GLUCOSE, FASTING 117 MG/DL (70-105); IRON (FE) 43 UG/DL (65-175); MAGNESIUM LEVEL 2.5 MG/DL (1.8-2.4); PERCENT SATURATION 16.4 % (19.7-50.0); POTASSIUM SERUM 3.9 MEQ/L (3.5-5.1); SODIUM LEVEL 146 MEQ/L (136-145); TOTAL IRON BINDING CAPACITY 262 UG/DL (250-450); TOTAL PROTEIN 6.8 GM/DL (6.4-8.2); URIC ACID 6.2 MG/DL (3.5-7.2)
== END ==
LOC: M SFHCPLAZ 14:10
DX: E03.9 Hypothyroidism, unspecified (principal); M10.9 Gout, unspecified; E11.8 Type 2 diabetes mellitus with unspecified complications; I10 Essential (primary) hypertension; G25.81 Restless legs syndrome

== ENCOUNTER → 2017-05-25 | Outpatient (CLI) | payer OTHER | LOC: M RAD 16:17 | DX: M47.22 Other spondylosis with radiculopathy, cervical region (principal); M50.30 Other cervical disc degeneration, unspecified cervical region; M17.0 Bilateral primary osteoarthritis of knee | CPT/HCPCS: 72052 ==

== ENCOUNTER → 2017-07-12 | Outpatient (CLI) | payer OTHER | LOC: M RAD 17:09 | DX: R51 Headache (principal) | CPT/HCPCS: 70450 ==

== ENCOUNTER → 2017-10-26 | Outpatient (REF) | payer OTHER ==
[2017-10-26 12:09] LABS: BASO % 0.4 % (0.0-1.0); EOS # 0.1 10^3/uL (0.0-0.50); EOS % 1.7 % (0.0-3.0); HEMATOCRIT 42.3 % (42.0-52.0); HEMOGLOBIN 14.5 g/dl (13.5-17.5); LYMPH % 23.3 % (24.0-44.0); MEAN CORPUSCULAR HEMOGLOBIN 30.3 pg (27.0-33.0); MEAN CORPUSCULAR HGB CONC 34.3 g/dl (32.0-36.5); MEAN CORPUSCULAR VOLUME 88.5 fl (80.0-96.0); MONO # 0.6 10^3/uL (0.0-0.8); MONO % 7.6 % (0.0-5.0); NEUTROPHILS # 5.5 10^3/uL (1.8-7.7); PLATELET COUNT, AUTOMATED 215 10^3/uL (150-450); RED BLOOD COUNT 4.78 10^6/uL (4.30-6.10); RED CELL DISTRIBUTION WIDTH 13.3 % (11.5-14.5); RETIC HEMOGLOBIN EQUIVALENT 34.7 pg (24-36); RETICULOCYTE # 108.5 10^9/L (17-77); RETICULOCYTE % 2.3 % (0.5-1.5); WHITE BLOOD COUNT 8.4 10^3/uL (4.0-10.0)
[2017-10-26 12:55] LABS: VITAMIN B12 LEVEL 559 PG/ML (247-911)
[2017-10-26 13:04] LABS: ALBUMIN 3.5 GM/DL (3.2-5.2); ALBUMIN/GLOBULIN RATIO 1.17 (1.00-1.93); ALKALINE PHOSPHATASE 101 U/L (45-117); ALT/SGPT 24 U/L (12-78); ANION GAP 11 MEQ/L (8-16); AST/SGOT 10 U/L (7-37); BILIRUBIN,TOTAL 0.5 MG/DL (0.2-1.0); BLOOD UREA NITROGEN 16 MG/DL (7-18); CALCIUM LEVEL 8.3 MG/DL (8.5-10.1); CARBON DIOXIDE LEVEL 28 MEQ/L (21-32); CHLORIDE LEVEL 106 MEQ/L (98-107); CREATININE FOR GFR 0.81 MG/DL (0.70-1.30); GLOMERULAR FILTRATION RATE > 60.0 (>56); GLUCOSE, FASTING 143 MG/DL (70-100); POTASSIUM SERUM 3.7 MEQ/L (3.5-5.1); SODIUM LEVEL 145 MEQ/L (136-145); TOTAL PROTEIN 6.5 GM/DL (6.4-8.2)
[2017-10-26 18:19] LABS: ESTIMATED AVERAGE GLUCOSE 126 MG/DL (60-110)
== END ==
LOC: M SFHCPLAZ 10:09
DX: I10 Essential (primary) hypertension (principal); E11.8 Type 2 diabetes mellitus with unspecified complications

== ENCOUNTER → 2017-11-13 | Outpatient (CLI) | payer OTHER | LOC: M RAD 10:14 | DX: M19.90 Unspecified osteoarthritis, unspecified site (principal) | CPT/HCPCS: 72142 ==

== ENCOUNTER 2017-12-18 19:34 | Emergency (ER) | payer OTHER | END 2017-12-18 22:55 | disposition home or self-care (01) | LOC: M ED 19:34 | DX: S90.31XA Contusion of right foot, initial encounter (principal); X58.XXXA Exposure to other specified factors, initial encounter; Y92.89 Other specified places as the place of occurrence of the external cause; I10 Essential (primary) hypertension; E11.9 Type 2 diabetes mellitus without complications; E78.5 Hyperlipidemia, unspecified; D64.9 Anemia, unspecified; E03.9 Hypothyroidism, unspecified; Z79.899 Other long term (current) drug therapy; Z79.890 Hormone replacement therapy | CPT/HCPCS: 73630 ==

== ENCOUNTER → 2018-02-14 | Outpatient (REF) | payer OTHER ==
[2018-02-14 18:44] LABS: PTH INTACT 58.9 PG/ML (18.5-88.0)
[2018-02-14 18:45] LABS: ALBUMIN 3.4 GM/DL (3.2-5.2); ALBUMIN/GLOBULIN RATIO 1.06 (1.00-1.93); ALKALINE PHOSPHATASE 108 U/L (45-117); ALT/SGPT 25 U/L (12-78); ANION GAP 7 MEQ/L (8-16); AST/SGOT 10 U/L (7-37); BILIRUBIN,TOTAL 0.3 MG/DL (0.2-1.0); BLOOD UREA NITROGEN 20 MG/DL (7-18); C REACTIVE PROTEIN QUANTITATIV 1.02 MG/DL (0.00-0.30); CALCIUM LEVEL 8.5 MG/DL (8.5-10.1); CARBON DIOXIDE LEVEL 30 MEQ/L (21-32); CHLORIDE LEVEL 108 MEQ/L (98-107); CHOLESTEROL LEVEL 174 MG/DL (<200); CHOLESTEROL RISK RATIO 3.702 (<5); CPK CREATINE PHOSPHOKINASE 53 U/L (39-308); CREATININE FOR GFR 0.79 MG/DL (0.70-1.30); FREE T4 1.14 NG/DL (0.76-1.46); GLOMERULAR FILTRATION RATE > 60.0 (>56); GLUCOSE, FASTING 95 MG/DL (70-100); HDL CHOLESTEROL 47 MG/DL (>40); LDL CHOLESTEROL 86 MG/DL (<100); NON-HDL-C 127 MG/DL; POTASSIUM SERUM 4.1 MEQ/L (3.5-5.1); PSA SCREENING 0.49 NG/ML (< 4.0); SODIUM LEVEL 145 MEQ/L (136-145); TOTAL PROTEIN 6.6 GM/DL (6.4-8.2); TRIGLYCERIDES LEVEL 204 MG/DL (<150); URIC ACID 4.4 MG/DL (3.5-7.2)
[2018-02-14 18:52] LABS: ESTIMATED AVERAGE GLUCOSE 126 MG/DL (60-110)
[2018-02-14 19:05] LABS: TOTAL 25(OH) VITAMIN D 16.3 NG/ML (30.0-100.0)
== END ==
LOC: M SFHCPLAZ 15:31
DX: E78.2 Mixed hyperlipidemia (principal); E03.9 Hypothyroidism, unspecified; E11.8 Type 2 diabetes mellitus with unspecified complications; Z12.5 Encounter for screening for malignant neoplasm of prostate; E55.9 Vitamin D deficiency, unspecified; M10.9 Gout, unspecified

== ENCOUNTER → 2018-05-05 | Outpatient (CLI) | payer OTHER ==
[~2018-05-05] MED LIST changes: +ALLOPOW4; +AMLO5TAB6; +ATEN25TA; +CYCL10TA; +FLUO20CA19; +GABA-1171; -ISOVUE-M 300 61% 15ML VIAL (Q9967) As Ordered ONE; +LEVO100T5; -LIDOCAINE 1% SDV INJ 30 ML VIAL As Ordered ONE; +LISI40TA; +METF500T4; +SIMV20TA2; +TRAZ-186; -diazePAM 5 MG TAB As Ordered ONE; -methylPREDNISolone SUSP 40 MG/ML (DEPO-medrol) VIAL (J1030) As Ordered ONE; -oxyCODONE 5MG TAB As Ordered ONE
--- NOTE | 2018-05-05 19:18 | REP ---
Chest x-ray: Two views. History: Wheezing. Comparison study: April 20, 2014. Findings: There is an ill-defined nodular opacity projecting just above the left mid clavicle in the left lung apex which merits further evaluation. This appears to be a new finding and a pulmonary nodule cannot be excluded. The lungs are symmetrically aerated and otherwise clear. The pleural angles are sharp. Heart size is normal. There are degenerative changes in the thoracic spine as before. Pulmonary vasculature is not increased. Impression: Possible nodular neodensity left lung apex. Recommend chest CT study. Otherwise no acute disease. Electronically Signed by Krzysztof Diallo MD 05/05/2018 07:24 P
[2018-05-05 19:51] LABS: BASO % 0.2 % (0.0-1.0); HEMATOCRIT 42.8 % (42.0-52.0); LYMPH # 1.1 10^3/uL (1.5-4.5); LYMPH % 17.3 % (24.0-44.0); MEAN CORPUSCULAR HEMOGLOBIN 29.5 pg (27.0-33.0); MEAN CORPUSCULAR HGB CONC 32.7 g/dl (32.0-36.5); MEAN CORPUSCULAR VOLUME 90.3 fl (80.0-96.0); MONO # 0.7 10^3/uL (0.0-0.8); MONO % 10.9 % (0.0-5.0); NEUTROPHILS # 4.3 10^3/uL (1.8-7.7); NEUTROPHILS % 70.9 % (36.0-66.0); PLATELET COUNT, AUTOMATED 225 10^3/uL (150-450); RED BLOOD COUNT 4.74 10^6/uL (4.30-6.10); WHITE BLOOD COUNT 6.1 10^3/uL (4.0-10.0)
[2018-05-05 19:55] LABS: ALBUMIN 3.3 GM/DL (3.2-5.2); ALT/SGPT 27 U/L (12-78); BILIRUBIN,TOTAL 0.3 MG/DL (0.2-1.0); BLOOD UREA NITROGEN 15 MG/DL (7-18); CALCIUM LEVEL 8.2 MG/DL (8.5-10.1); CARBON DIOXIDE LEVEL 27 MEQ/L (21-32); CHLORIDE LEVEL 103 MEQ/L (98-107); CREATININE FOR GFR 1.22 MG/DL (0.70-1.30); GLOMERULAR FILTRATION RATE > 60.0 (>56); GLUCOSE, FASTING 148 MG/DL (70-100); POTASSIUM SERUM 4.6 MEQ/L (3.5-5.1); SODIUM LEVEL 140 MEQ/L (136-145); TOTAL PROTEIN 6.9 GM/DL (6.4-8.2)
== END ==
LOC: M WUC 17:41
PROVIDERS: ATTEND Physician Assistant
DX: R91.8 Other nonspecific abnormal finding of lung field (principal); M51.34 Other intervertebral disc degeneration, thoracic region; R06.2 Wheezing; R50.9 Fever, unspecified

== ENCOUNTER → 2018-06-01 | Outpatient (CLI) | payer OTHER ==
--- NOTE | 2018-06-02 07:23 | REP ---
Clinical: Follow-up pulmonary nodule. Comparison: 03/15/2015. Technique: Axial noncontrast images from the thoracic inlet to the upper abdomen with coronal and sagittal re-formations. Findings: The lung jimenez demonstrate very minimal infrahilar and lower lobe fibroatelectatic changes without focal consolidation or pleural effusion. There is a 3 mm calcified nodule in the periphery of the right lower lobe (image 56) along with a 2 mm calcified density inseparable from the superior peripheral aspect of the right major fissure (images 35-36). No further significant nodule or mass lesion. No pleural effusion. No pneumothorax. Tracheobronchial tree is patent. No obvious adenopathy. Mediastinum demonstrates atherosclerotic changes to the coronary arteries without cardiomegaly or pericardial effusion. No thoracic aortic aneurysm noted. Musculoskeletal structures demonstrate bridging osteophytes along the thoracic vertebral bodies. Impression: 3 mm calcified granuloma in the right lower lobe. 2 mm calcified density inseparable from the right major fissure. No acute, significant mediastinal or pleuroparenchymal process. Nonacute changes as above. Electronically Signed by aGbe Hoffman MD 06/02/2018 07:15 A
== END ==
LOC: M RAD 14:06
PROVIDERS: ATTEND Physician Assistant
DX: R91.1 Solitary pulmonary nodule (principal)

== ENCOUNTER → 2018-09-22 | Outpatient (REF) | payer OTHER ==
[2018-09-22 12:23] LABS: BASO % 0.5 % (0.0-1.0); EOS # 0.1 10^3/uL (0.0-0.50); EOS % 1.5 % (0.0-3.0); HEMATOCRIT 42.5 % (42.0-52.0); HEMOGLOBIN 13.8 g/dl (13.5-17.5); LYMPH # 1.9 10^3/uL (1.5-4.5); LYMPH % 21.6 % (24.0-44.0); MEAN CORPUSCULAR HEMOGLOBIN 29.4 pg (27.0-33.0); MEAN CORPUSCULAR HGB CONC 32.5 g/dl (32.0-36.5); MEAN CORPUSCULAR VOLUME 90.4 fl (80.0-96.0); MONO # 0.6 10^3/uL (0.0-0.8); MONO % 6.4 % (0.0-5.0); NEUTROPHILS # 5.9 10^3/uL (1.8-7.7); NEUTROPHILS % 69.3 % (36.0-66.0); PLATELET COUNT, AUTOMATED 243 10^3/uL (150-450); WHITE BLOOD COUNT 8.6 10^3/uL (4.0-10.0)
[2018-09-22 12:38] LABS: ALBUMIN 3.5 GM/DL (3.2-5.2); ALT/SGPT 24 U/L (12-78); BILIRUBIN,TOTAL 0.5 MG/DL (0.2-1.0); BLOOD UREA NITROGEN 16 MG/DL (7-18); CALCIUM LEVEL 9.1 MG/DL (8.5-10.1); CARBON DIOXIDE LEVEL 29 MEQ/L (21-32); CHLORIDE LEVEL 107 MEQ/L (98-107); CREATININE FOR GFR 0.82 MG/DL (0.70-1.30); FREE T4 1.21 NG/DL (0.76-1.46); GLOMERULAR FILTRATION RATE > 60.0 (>56); GLUCOSE, FASTING 148 MG/DL (70-100); MAGNESIUM LEVEL 1.9 MG/DL (1.8-2.4); POTASSIUM SERUM 3.6 MEQ/L (3.5-5.1); SODIUM LEVEL 143 MEQ/L (136-145); TOTAL PROTEIN 6.4 GM/DL (6.4-8.2)
[2018-09-22 12:53] LABS: HEMOGLOBIN A1c 6.6 %
== END ==
LOC: M SFHCPLAZ 09:35
PROVIDERS: ATTEND Family Medicine
DX: Z12.5 Encounter for screening for malignant neoplasm of prostate (principal); I10 Essential (primary) hypertension; E03.9 Hypothyroidism, unspecified; E11.8 Type 2 diabetes mellitus with unspecified complications

== ENCOUNTER → 2019-03-28 | Outpatient (CLI) | payer OTHER ==
[~2019-03-28] MED LIST changes: +METF-791; -METF500T4
--- NOTE | 2019-03-28 14:07 | REP ---
Six views left ribs and thorax: 03/28/2019. Indication: Left-sided rib pain. Comparison: 04/20/2014. Findings: There is no acute fracture, subluxation or dislocation. The visualized lungs are clear. There is no pulmonary contusion, pleural effusion or pneumothorax. Impression: No rib fracture. Clear lungs. Electronically Signed by Papi Rushing DO 03/28/2019 01:59 P
[2019-03-28 14:18] LABS: BASO % 0.3 % (0.0-1.0); EOS # 0.2 10^3/uL (0.0-0.5); HEMATOCRIT 42.1 % (42.0-52.0); HEMOGLOBIN 14.1 g/dl (13.5-17.5); LYMPH # 2.5 10^3/uL (1.5-5.0); LYMPH % 22.4 % (24.0-44.0); MEAN CORPUSCULAR HEMOGLOBIN 29.4 pg (27.0-33.0); MEAN CORPUSCULAR HGB CONC 33.5 g/dl (32.0-36.5); MEAN CORPUSCULAR VOLUME 87.9 fl (80.0-96.0); MONO % 8.6 % (0.0-5.0); NEUTROPHILS # 7.3 10^3/uL (1.5-8.5); NEUTROPHILS % 65.8 % (36.0-66.0); PLATELET COUNT, AUTOMATED 282 10^3/uL (150-450); RED BLOOD COUNT 4.79 10^6/uL (4.30-6.10); WHITE BLOOD COUNT 11.1 10^3/uL (4.0-10.0)
[2019-03-28 14:47] LABS: ALBUMIN 3.5 GM/DL (3.2-5.2); ALT/SGPT 30 U/L (12-78); BILIRUBIN,TOTAL 0.7 MG/DL (0.2-1.0); BLOOD UREA NITROGEN 16 MG/DL (7-18); CALCIUM LEVEL 8.7 MG/DL (8.5-10.1); CARBON DIOXIDE LEVEL 30 MEQ/L (21-32); CHLORIDE LEVEL 105 MEQ/L (98-107); CHOLESTEROL LEVEL 155 MG/DL (<200); CHOLESTEROL RISK RATIO 3.522 (<5); CREATININE FOR GFR 1.15 MG/DL (0.70-1.30); GLOMERULAR FILTRATION RATE > 60.0 (>56); GLUCOSE, FASTING 118 MG/DL (70-100); HDL CHOLESTEROL 44 MG/DL (>40); LDL CHOLESTEROL 69 MG/DL (<100); NON-HDL-C 111 MG/DL; POTASSIUM SERUM 3.8 MEQ/L (3.5-5.1); SODIUM LEVEL 143 MEQ/L (136-145); TOTAL PROTEIN 6.6 GM/DL (6.4-8.2); TRIGLYCERIDES LEVEL 209 MG/DL (<150)
[2019-03-28 14:52] LABS: HEMOGLOBIN A1c 5.9 %
[2019-03-28 14:55] LABS: PTH INTACT 66.1 PG/ML (18.5-88.0); TOTAL 25(OH) VITAMIN D 26.2 NG/ML (30.0-100.0); VITAMIN B12 LEVEL 531 PG/ML (247-911)
== END ==
LOC: M LAB 13:20
PROVIDERS: ATTEND Family Medicine
DX: E11.8 Type 2 diabetes mellitus with unspecified complications (principal); E55.9 Vitamin D deficiency, unspecified; I10 Essential (primary) hypertension; R07.81 Pleurodynia

== ENCOUNTER → 2019-03-28 | Outpatient (REF) | payer OTHER | LOC: M SFHCPLAZ 15:29 | PROVIDERS: ATTEND Family Medicine | DX: D10.30 Benign neoplasm of unspecified part of mouth (principal) ==

== ENCOUNTER → 2020-07-16 | Outpatient (CLI) | payer MEDICARE, MEDICAID ==
[~2020-07-16] MED LIST changes: +AMLO1TAB24; -AMLO5TAB6; +CYCL-707; -CYCL10TA; -FLUO20CA19; +FLUO20CA22; -LISI40TA; +LISI40TA4; -METF-791; +METF-838; -SIMV20TA2; +SIMV20TA22
== END ==
LOC: M LABSMTC 12:05
PROVIDERS: ATTEND Family Medicine
DX: Z11.52 Encounter for screening for COVID-19 (principal)
CPT/HCPCS: C9803; U0003

== ENCOUNTER → 2020-07-19 | Outpatient (REF) | payer MEDICARE, MEDICAID ==
[2020-07-19 15:56] LABS: BASO # 0.1 10^3/uL (0.0-0.2); BASO % 0.5 % (0.0-1.0); EOS # 0.2 10^3/uL (0.0-0.5); HEMATOCRIT 45.3 % (42.0-52.0); HEMOGLOBIN 14.5 g/dl (13.5-17.5); LYMPH # 2.2 10^3/uL (1.5-5.0); LYMPH % 20.9 % (24.0-44.0); MEAN CORPUSCULAR VOLUME 90.6 fl (80.0-96.0); MONO # 0.8 10^3/uL (0.0-0.8); MONO % 7.4 % (2.0-8.0); NEUTROPHILS # 7.2 10^3/uL (1.5-8.5); NEUTROPHILS % 68.5 % (36.0-66.0); PLATELET COUNT, AUTOMATED 292 10^3/uL (150-450); WHITE BLOOD COUNT 10.5 10^3/uL (4.0-10.0)
[2020-07-19 16:08] LABS: HEMOGLOBIN A1c 7.3 %
[2020-07-19 16:26] LABS: ALBUMIN 3.8 GM/DL (3.2-5.2); ALT/SGPT 43 U/L (12-78); BILIRUBIN,TOTAL 0.5 MG/DL (0.2-1.0); BLOOD UREA NITROGEN 17 MG/DL (7-18); CALCIUM LEVEL 9.3 MG/DL (8.5-10.1); CARBON DIOXIDE LEVEL 33 MEQ/L (21-32); CHLORIDE LEVEL 104 MEQ/L (98-107); CHOLESTEROL LEVEL 166 MG/DL (<200); CREATININE FOR GFR 1.05 MG/DL (0.70-1.30); FERRITIN 94 NG/ML (26-388); FREE T4 1.04 NG/DL (0.76-1.46); GLOMERULAR FILTRATION RATE > 60.0 (>56); GLUCOSE, FASTING 163 MG/DL (70-100); HDL CHOLESTEROL 43 MG/DL (>40); LDL CHOLESTEROL 79 MG/DL (<100); NON-HDL-C 123 MG/DL; POTASSIUM SERUM 4.3 MEQ/L (3.5-5.1); SODIUM LEVEL 139 MEQ/L (136-145); TOTAL PROTEIN 7.1 GM/DL (6.4-8.2); TRIGLYCERIDES LEVEL 220 MG/DL (<150); URIC ACID 4.9 MG/DL (3.5-7.2)
[2020-07-19 16:36] LABS: TOTAL 25(OH) VITAMIN D 31.3 NG/ML (30.0-100.0)
[2020-07-19 16:37] LABS: PTH INTACT 66.8 PG/ML (18.5-88.0)
== END ==
LOC: M SFHCPLAZ 13:12
PROVIDERS: ATTEND Family Medicine
DX: E11.8 Type 2 diabetes mellitus with unspecified complications (principal); I10 Essential (primary) hypertension; M10.9 Gout, unspecified; E03.9 Hypothyroidism, unspecified; G25.81 Restless legs syndrome; E55.9 Vitamin D deficiency, unspecified; Z12.5 Encounter for screening for malignant neoplasm of prostate
CPT/HCPCS: 36415; 80053; 80061; 82306; 82728; 83036; 83970; 84439; 84443; 84550; 85025; G0103; G0463

== ENCOUNTER → 2020-09-20 | Outpatient (CLI) | payer MEDICARE, MEDICAID | LOC: M LABSMTC 13:38 | PROVIDERS: ATTEND Pediatrics | DX: Z20.822 Contact with and (suspected) exposure to COVID-19 (principal) | CPT/HCPCS: C9803; U0003 ==

== ENCOUNTER → 2020-09-25 | Outpatient (CLI) | payer MEDICARE, MEDICAID ==
[~2020-09-25] MED LIST changes: +AMLO1TAB25 PO; -ATEN25TA; +ATEN25TA PO; -CYCL-707; +CYCL-707 PO; +EXCETAB33 PO; -FLUO20CA22; +FLUO20CA22 PO; +GABA600T4 PO; +LEVO112T25 PO; -LISI40TA4; +LISI40TA4 PO; +METF750T36 PO; -SIMV20TA22; +SIMV20TA22 PO; +TRUL10IN SQ; +ZYLO300T6 PO
== END ==
LOC: M LABSMTC 09:48
PROVIDERS: ATTEND Pediatrics
DX: Z11.52 Encounter for screening for COVID-19 (principal)
CPT/HCPCS: C9803; U0003

== ENCOUNTER 2020-09-27 09:12 | Inpatient (IN) | payer MEDICARE, MEDICAID ==
[~2020-09-27] VITALS: Ht 190.5 cm; Wt 160.7 kg
[~2020-09-27 09:12] MED LIST changes: -AMLO1TAB25 PO; -EXCETAB33 PO; -GABA600T4 PO; -LEVO112T25 PO; -METF750T36 PO; -TRUL10IN SQ; -ZYLO300T6 PO
[2020-09-27] MEDS ORDERED: NS 1,000 ML IV ONE ×2 (09:15→10:40)
--- NOTE | 2020-09-27 09:43 | REP ---
INDICATION: Coronavirus workup. COMPARISON: Comparison chest x-ray March 28, 2019. TECHNIQUE: Portable upright AP chest radiograph. FINDINGS: There is an infiltrate in the right upper perihilar region consistent with pneumonia. Right hemidiaphragm is somewhat elevated unchanged. Lung jimenez are otherwise clear. Heart is not enlarged. Pulmonary vasculature is somewhat cephalized.. EKG monitoring electrodes are seen. IMPRESSION: Right upper lobe infiltrate consistent with pneumonia.. <Electronically signed by Jose Diallo > 09/27/20 0923
[2020-09-27 09:53] LABS: BASO % 0.2 % (0.0-1.0); EOS % 0.2 % (0.0-3.0); HEMATOCRIT 43.7 % (42.0-52.0); HEMOGLOBIN 13.8 g/dl (13.5-17.5); LYMPH # 0.8 10^3/uL (1.5-5.0); LYMPH % 14.4 % (24.0-44.0); MEAN CORPUSCULAR HEMOGLOBIN 29.4 pg (27.0-33.0); MEAN CORPUSCULAR HGB CONC 31.6 g/dl (32.0-36.5); MONO # 0.8 10^3/uL (0.0-0.8); MONO % 13.4 % (2.0-8.0); NEUTROPHILS % 70.7 % (36.0-66.0); PLATELET COUNT, AUTOMATED 146 10^3/uL (150-450); WHITE BLOOD COUNT 5.7 10^3/uL (4.0-10.0)
[2020-09-27 10:05] LABS: INR 0.94; PROTHROMBIN TIME 12.8 SECONDS (12.5-14.3)
[2020-09-27 10:06] LABS: PARTIAL THROMBOPLASTIN TIME 22.1 SECONDS (24.2-38.5)
[2020-09-27] MEDS ORDERED: cefTRIAXone SOD 2 GM in D5W MINI-BAG PLUS 50 ML IV ONE (10:35)
[2020-09-27] MEDS ORDERED: AZITHROMYCIN INJ 500 MG, VIAL MATE ADAPTER 1 EACH in NS 250 ML IV ONE (10:35)
[2020-09-27 10:51] LABS: ALBUMIN 3.4 GM/DL (3.2-5.2); ALT/SGPT 79 U/L (12-78); BILIRUBIN,TOTAL 0.6 MG/DL (0.2-1.0); BLOOD UREA NITROGEN 24 MG/DL (7-18); C REACTIVE PROTEIN QUANTITATIV 5.06 MG/DL (0.00-0.30); CALCIUM LEVEL 8.1 MG/DL (8.5-10.1); CARBON DIOXIDE LEVEL 26 MEQ/L (21-32); CHLORIDE LEVEL 103 MEQ/L (98-107); CK-MB VALUE MASS < 1.0 NG/ML (<3.6); CPK CREATINE PHOSPHOKINASE 75 U/L (39-308); CREATININE FOR GFR 1.71 MG/DL (0.70-1.30); FERRITIN 470 NG/ML (26-388); GLUCOSE, FASTING 174 MG/DL (70-100); LDH LACTATE DEHYDROGENASE 239 U/L (87-241); MAGNESIUM LEVEL 1.9 MG/DL (1.8-2.4); MB/CK RELATIVE INDEX 1.33 (< OR =4); POTASSIUM SERUM 4.4 MEQ/L (3.5-5.1); SODIUM LEVEL 138 MEQ/L (136-145); TOTAL PROTEIN 6.3 GM/DL (6.4-8.2); TROPONIN I 0.06 NG/ML (< 0.10)
[2020-09-27] MEDS ORDERED: NS 1,730 ML in IV 1 EA IV ONE (10:55)
[2020-09-27] MEDS ORDERED: ZYLO300T6 PO (11:37)
[2020-09-27] MEDS ORDERED: TRUL10IN SQ (11:37)
[2020-09-27] MEDS ORDERED: LEVO112T25 PO (11:37)
[2020-09-27] MEDS ORDERED: METF750T36 PO (11:37)
[2020-09-27] MEDS ORDERED: AMLO1TAB25 PO (11:37)
[2020-09-27] MEDS ORDERED: GABA600T4 PO ×2 (11:37)
[2020-09-27] MEDS ORDERED: CYCL-707 PO (11:37)
[2020-09-27] MEDS ORDERED: EXCETAB33 PO (11:37)
[2020-09-27] MEDS ORDERED: ACETAMINOPHEN 325 MG TAB PO ONE (11:50)
[2020-09-27] MEDS ORDERED: GLUCAGON INJ 1MG VIAL SC PRN (12:45)
[2020-09-27] MEDS ORDERED: DEXTROSE 50% 50 ML SYRINGE IV PRN (12:45)
[2020-09-27] MEDS ORDERED: GLUCOSE 4GM CHEW TABLET PO PRN (12:45)
--- NOTE | 2020-09-27 13:05 | HPEPDOC ---
[facility] Medical History & Physical Date of Admission September 27, 2020 Date of Service: September 27, 2020 History and Physical CHIEF COMPLAINT: Near-syncope HISTORY OF PRESENT ILLNESS: 60-year-old male past medical history of ssy-whtjrrh-gzxlovikd diabetes, hypertension, hyperlipidemia, hypothyroidism who presents to the hospital by EMS due to near syncope and dizziness this morning. He tells me that he noticed 3 days ago he had a fever home he measured at 101.2 he later felt better but this morning he felt very dizzy and almost passed out he brought himself down to his knees twice and never lost consciousness. He called EMS and his blood pressure was low on site. He received bolus IV fluid in the emergency department his systolic blood pressure was 85 but he responded very well to fluids and he is now hypertensive. He feels his dizziness is much better. In the emergency department patient was tested for Covid, his at home was positive for Covid. PCR came back negative. However upon review of his inflammatory markers and pneumonia on x-ray his findings are consistent that he likely has presumed Covid despite the negative PCR and will be admitted for further workup and management. Patient denies chest pain or shortness of breath he denies fevers or chills currently and denies being in any pain. He endorses having a very poor appetite over the past few days and hasn't been drinking or eating much. PAST MEDICAL/SURGICAL HISTORY: Mzg-juommqh-cofvbelel diabetes Hypertension Hyperlipidemia Hypothyroidism Psoriasis Depression Gout Left elbow surgery SOCIAL HISTORY: Endorses drinking alcohol but only socially Denies tobacco use Denies illicit drug use FAMILY HISTORY: Mother had a history of breast cancer Father had a history of lung cancer ALLERGIES: Please see below. REVIEW OF SYSTEMS: 10 point review of systems complete all negative otherwise stated in HPI HOME MEDICATIONS: Please see below. PHYSICAL EXAMINATION: Constitutional: Awake and alert, in no apparent distress, very obese, appears comfortable ENT: Sclera are clear. Mucosa is moist. Respiratory: Lungs diminished breath sounds bilaterally possibly from his large body habitus. No respiratory distress. No use of accessory muscles. Able to speak in full sentences Cardiovascular: Regular rate and rhythm Gastrointestinal: Abdomen is soft, non distended, non tender, BS present. Musculoskeletal: No lower extremity edema. Neurologic: No focal neurological deficit. Mental Status: A&O x3, normal affect Skin: Multiple skin tags around the neck, appearance of psoriasis around the left elbow LABORATORY DATA: See below. IMAGING: See chart MICROBIOLOGY: Please see below. ASSESSMENT/PLAN 60-year-old male history of diabetes, hypertension, obesity who presents due to presyncope found to be hypotensive possibly from dehydration found to have pneumonia and presumed Covid 19 infection as well as acute kidney injury admit rosalba for further workup and management. # Presumed Covid 19 infection: His initial inflammatory markers are elevated fibrinogen 550, d-dimer ~ 4000, thrombocytopenia platelets 146, CRP 5, ferritin 470. Despite a negative Covid PCR test will diminish the patient is only has presumed Covid 19 infection given his history of contact with his who was positive as well as his presentation and lab findings. I discussed this with Stephanie Lundberg from [place] who agrees to admit patient to COVID unit. - Has multiple risk factors for poor outcomes with Covid 19 infection such as obesity, hypertension and diabetes. - Trend inflammatory markers. IV Decadron daily. No oxygen requirements currently, hold off on rimdasivir for now. Lovenox. O2 target 90% or better. # Possible superimposed RUL bacterial pneumonia: Calcitonin 0.27. History of fever. No cough or sputum production. Chest x-ray suggestive RUL PNA. Fu BCx, sputum culture and Gram stain. Incentive spirometry. Urine strep pneumo, Legionella antigen, mycoplasma pending. IV antibiotics with ceftriaxone and doxycycline. # Sepsis: Pneumonia source of infection. Presented with hypotension initially which responded well to IV fluids. Continue antibiotics and IV fluids for now. Blood pressure now hypertensive. Follow-up blood cultures. # hypotension: Now resolved. Responded well to IV fluids. Possibly from dehydration as he has not been eating or drinking much over the past several days. # SKYLER: Cr 1.7. Likely from hypotension and dehydration. Fu FeNa. IVFs NS. Trend BMP. Avoid nephrotoxins. # Lactic acidosis: Initially 2.7 responded well to fluids this was likely due to his hypotension improved to 1.4 # NIDDM with peripheral neuropathy: ISS. Frequent Accu-Cheks. Hypoglycemic precautions. Continue gabapentin. # Hypertension: Continue home meds. Monitor and titrate # Hypothyroidism: resume Synthroid. # Hyperlipidemia: Continue simvastatin # History of gout: Continue allopurinol # Depression: Continue Prozac # Obesity: BMI 44. Complicates care # DVT prophylaxis: Lovenox prophylactic overdose. If renal function worsens consider switching to heparin A Yousef Hospitalist Vital Signs Vital Signs Date Time Temp Pulse Resp B/P (MAP) Pulse Ox O2 Delivery O2 Flow Rate FiO2 09/27/20 11:47 70 18 136/78 (97) 98 Nasal Cannula 2.0 09/27/20 10:03 99.6 Laboratory Data Labs 24H Laboratory Tests 2 09/27/20 09:41: Immature Granulocyte % (Auto) 1.1, Neutrophils (%) (Auto) 70.7H, Lymphocytes (%) (Auto) 14.4L, Monocytes (%) (Auto) 13.4H, Eosinophils (%) (Auto) 0.2, Basophils (%) (Auto) 0.2, Neutrophils # (Auto) 4.0, Lymphocytes # (Auto) 0.8L, Monocytes # (Auto) 0.8, Eosinophils # (Auto) 0.0, Basophils # (Auto) 0.0, Nucleated Red Blood Cells % (auto) 0.0, Prothrombin Time 12.8, Prothromb Time International Ratio 0.94, Activated Partial Thromboplast Time 22.1L, Fibrinogen 552H, Anion Gap 9, Glomerular Filtration Rate 44.0L, Calcium Level 8.1L, Magnesium Level 1.9, Ferritin 470H, Total Bilirubin 0.6, Aspartate Amino Transf (AST/SGOT) 89H, Alanine Aminotransferase (ALT/SGPT) 79H, Alkaline Phosphatase 108, Lactate Dehydrogenase 239, Total Creatine Kinase 75, Creatine Kinase MB < 1.0, Creatine Kinase MB Relative Index 1.33, Troponin I 0.06, C-Reactive Protein, Quantitative 5.06H, Total Protein 6.3L, Albumin 3.4, Albumin/Globulin Ratio 1.2, Procalcitonin 0.27 09/27/20 09:42: Lactic Acid Level 2.7*H 09/27/20 09:49: POC pH (Misc Panel) 7.321L, POC Base Excess (Misc Panel) -1.0, POC Saturated Percent O2 (Misc) 25L, POC pO2 (Misc Panel) 19.0*L, POC pCO2 (Misc Panel) 48.9H, POC HCO3 (Misc Panel) 25.3, POC Total CO2 (Misc Panel) 27.0 09/27/20 10:06: POC pH (Misc Panel) 7.356, POC Base Excess (Misc Panel) -3.0L, POC Saturated Percent O2 (Misc) 90L, POC pO2 (Misc Panel) 61.0L, POC pCO2 (Misc Panel) 40.2, POC HCO3 (Misc Panel) 22.5, POC Total CO2 (Misc Panel) 24.0 CBC/BMP Laboratory Tests 09/27/20 09:41 Microbiology Microbiology 09/27/20 Blood Culture, Received Pending 09/27/20 Respiratory Virus Panel (PCR) (JOEY) - Final, Complete 09/27/20 Blood Culture, Received Pending Home Medications Scheduled Allopurinol (Zyloprim) 300 Mg Tablet, 300 MG PO DAILY Amlodipine Besylate (Amlodipine Besylate) 10 Mg Tablet, 5 MG PO DAILY Atenolol (Atenolol) 25 Mg Tab, 25 MG PO QHS Cyclobenzaprine HCl (Cyclobenzaprine HCl) 10 Mg Tab, 20 MG PO QHS Dulaglutide (Trulicity) 0.75 Mg/0.5 Ml Pen.injctr, 0.75 MG SQ QWEEK THURSDAYS Fluoxetine Hcl (Fluoxetine HCl) 20 Mg Cap, 40 MG PO DAILY Gabapentin (Gabapentin) 600 Mg Tablet, 1,200 MG PO QHS Levothyroxine Sodium (Levoxyl) 112 Mcg Tablet, 112 MCG PO DAILY Lisinopril (Lisinopril) 40 Mg Tab, 40 MG PO QHS Metformin HCl (Metformin HCl ER) 750 Mg Tab.er.24h, 750 MG PO BID Simvastatin (Simvastatin) 20 Mg Tab, 20 MG PO QHS Scheduled PRN Aspirin/Acetaminophen/Caffeine (Excedrin Migraine Caplet) 1 Each Tablet, 2 TAB PO BID PRN for HEADACHE Cyclobenzaprine HCl (Cyclobenzaprine HCl) 10 Mg Tablet, 10 MG PO DAILY PRN for MUSCLE SPASMS Gabapentin (Gabapentin) 600 Mg Tablet, 600 MG PO DAILY PRN for PAIN Allergies Coded Allergies: Quinolones (Verified Adverse Reaction, Mild, NAUSEA, 09/27/20) Sulfa (Sulfonamide Antibiotics) (Verified Adverse Reaction, Mild, VERTIGO, 09/27/20) hydrochlorothiazide (Verified Adverse Reaction, Mild, VERTIGO, 09/27/20) A-FIB/CHADSVASC A-FIB History Current/History of A-Fib/PAF?: No TAI LYNN MD September 27, 2020 13:04
[2020-09-27] MEDS: dexameTHASONE 4 MG/ML 1ML VIAL (J1100 PER 1MG) IV SCH (13:49)
[2020-09-27] MEDS: FLUoxetine 20 MG CAP PO SCH (13:49)
[2020-09-27] MEDS: allopurinoL 300 MG TAB PO SCH (13:49)
[2020-09-27 14:03] LABS: D-DIMER QUANT 3909.09 ng/ml (<500)
[2020-09-27 16:00] VITALS: O2SAT 88
[2020-09-27 16:21] VITALS: BP 120/63
[2020-09-27] MEDS: NS 1,000 ML IV SCH ×2 (17:08→19:05)
[2020-09-27] MEDS: HumaLOG INSULIN (NovoLOG) PER UNIT SC SCH ×2 (17:32→21:41)
[2020-09-27 20:00] VITALS: O2SAT 94
[2020-09-27 20:30] VITALS: BP 131/80
--- NOTE | 2020-09-27 20:34 | ECGEPIP ---
[facility] - ED Test Date: 2020-09-27 Pat Name: RADHA GARY Department: Room: - Gender: Male Human Resources Project Manager: nael : [id number] Requested By: Reji Broderick Order Number: [id number] Reading MD: Jessie Jaimes Measurements Intervals [place] Rate: 68 P: 27 LA: 160 QRS: 31 QRSD: 90 T: 70 QT: 404 QTc: 429 Interpretive Statements Normal sinus rhythm NSTTW abnormalities low voltage limb increased rate 03/26/15 Electronically Signed on 09-27-2020 20:34:13 EDT by Jessie Jaimes
[2020-09-27] MEDS: DOXYCYCLINE HYCLATE 100 MG in D5W MINI-BAG PLUS 100 ML IV SCH (21:39)
[2020-09-27] MEDS: ENOXAPARIN 80MG/0.8ML SYRINGE (J1650 PER 10MG) SC SCH (21:40)
[2020-09-27] MEDS: GABAPENTIN 300 MG CAP PO SCH (21:41)
[2020-09-27] MEDS: CYCLOBENZAPRINE 10MG TABLET PO PRN (21:41)
[2020-09-27] MEDS: SIMVASTATIN 20 MG TAB PO SCH (21:41)
[2020-09-28] VITALS (8 sets, daily range): BP systolic 148–163; BP diastolic 69–97; O2SAT 92–97
[2020-09-28] MEDS: NS 1,000 ML IV SCH (00:30)
[2020-09-28 04:19] LABS: CREATININE,RANDOM URINE 83.5 MG/DL
[2020-09-28] MEDS: LEVOTHYROXINE 112MCG TABLET (0.112MG) PO SCH (05:55)
[2020-09-28 08:25] LABS: HEMATOCRIT 38.6 % (42.0-52.0); HEMOGLOBIN 12.4 g/dl (13.5-17.5); LYMPH # 0.5 10^3/uL (1.5-5.0); MEAN CORPUSCULAR HEMOGLOBIN 29.6 pg (27.0-33.0); MEAN CORPUSCULAR HGB CONC 32.1 g/dl (32.0-36.5); MEAN CORPUSCULAR VOLUME 92.1 fl (80.0-96.0); MONO # 0.4 10^3/uL (0.0-0.8); MONO % 13.7 % (2.0-8.0); NEUTROPHILS # 2.2 10^3/uL (1.5-8.5); NEUTROPHILS % 70.3 % (36.0-66.0); PLATELET COUNT, AUTOMATED 134 10^3/uL (150-450); RED BLOOD COUNT 4.19 10^6/uL (4.30-6.10); WHITE BLOOD COUNT 3.1 10^3/uL (4.0-10.0)
[2020-09-28 08:45] LABS: BLOOD UREA NITROGEN 19 MG/DL (7-18); CALCIUM LEVEL 7.7 MG/DL (8.5-10.1); CARBON DIOXIDE LEVEL 27 MEQ/L (21-32); CHLORIDE LEVEL 113 MEQ/L (98-107); GLOMERULAR FILTRATION RATE > 60.0 (>56); GLUCOSE, FASTING 159 MG/DL (70-100); MAGNESIUM LEVEL 2.3 MG/DL (1.8-2.4); POTASSIUM SERUM 4.5 MEQ/L (3.5-5.1); SODIUM LEVEL 144 MEQ/L (136-145)
[2020-09-28] MEDS: dexameTHASONE 4 MG/ML 1ML VIAL (J1100 PER 1MG) IV SCH (09:00)
[2020-09-28] MEDS: FLUoxetine 20 MG CAP PO SCH (09:00)
[2020-09-28] MEDS: allopurinoL 300 MG TAB PO SCH (09:00)
[2020-09-28] MEDS: ENOXAPARIN 80MG/0.8ML SYRINGE (J1650 PER 10MG) SC SCH ×2 (09:00→21:21)
[2020-09-28] MEDS: HumaLOG INSULIN (NovoLOG) PER UNIT SC SCH ×4 (09:00→21:00)
[2020-09-28] MEDS: DOXYCYCLINE HYCLATE 100 MG in D5W MINI-BAG PLUS 100 ML IV SCH ×2 (09:01→21:22)
[2020-09-28] MEDS: cefTRIAXone SOD 1 GM in D5W MINI-BAG PLUS 50 ML IV SCH (11:00)
[2020-09-28] MEDS ORDERED: ISOVUE-370 76% 100ML VIAL As Ordered ONE (11:59)
[2020-09-28] MEDS ORDERED: REMDESIVIR 200 MG in NS 250 ML IV ONE (12:00)
--- NOTE | 2020-09-28 12:15 | IPNPDOC ---
Text Note Date of Service The patient was seen on 09/28/20. NOTE SUBJECTIVE: -No acute vents overnight -On 4L NC OBJECTIVE: Constitutional: Awake and alert, in no apparent distress, morbidly obese ENT: Sclera are clear and anicteric. Mucosa is moist. Respiratory: Diminished breath sounds throughout. No respiratory distress. No use of accessory muscles. Speaking in full sentences. With nasal canula in place, on 4L NC Cardiovascular: RRR, no m/r/g Abdomen: Obese, normoactive sounds, non distended, non tender Extremities: No lower extremity edema, WWP Neurologic: No focal neurological deficit. Mental Status: A&O x3, normal affect Skin: Skin tags around the neck, psoriatic plaques around the left elbow LABORATORY DATA: Reviewed Pending AM labs MICROBIOLOGY: Please see below. ASSESSMENT/PLAN 60-year-old M with a history of diabetes, hypertension and morbid obesity who [id number] due to presyncope and found to be hypotensive possibly from dehydration found to have pneumonia and presumed Covid 19 infection given close contact with confirmed case as well as acute kidney injury admitted for further workup and management. # Presumed Covid 19 infection: His initial inflammatory markers are elevated fibrinogen 550, d-dimer ~ 4000, thrombocytopenia platelets 146, CRP 5, ferritin 470. Despite a negative Covid PCR test with very high suspicion and therefore admitted with presumed Covid 19 infection given his history of contact with his who was positive as well as his presentation and lab findings. -Discussed with Stephanie Lundberg, mechanical manager and admitted to COVID unit. - Has multiple risk factors for poor outcomes with Covid 19 infection such as obesity, hypertension and diabetes, and hypoxemic with what appears to be superimposed likely bacterial PNA, so will continue with day 2 of 6mg IV dexamethasone -Will preemptively start him on remdesevir for worsening hypoxemia despite recent negative covid test with high suspicion and elevated inflammatory markers -Trend inflammatory markers. -Lovenox BID, check AM BMP, if SKYLER worsening will need to switch from lovenox -O2 target 90% or better -Supplemental O2 -check BMP, if Cr is better will need CTA to r/o PE vs. V/Q scan if renal function continues to be diminished # Superimposed RUL bacterial pneumonia: Calcitonin 0.27. History of fever. No cough or sputum production. Chest x-ray suggestive RUL PNA. -F/u BCx -F/u sputum culture -Incentive spirometry. -Urine strep pneumo, Legionella antigen, mycoplasma pending. -Day 2 of IV antibiotics with ceftriaxone and doxycycline. # Sepsis: 2/2 Pneumonia -Continue antibiotics and IV fluids for now. -Follow-up blood cultures. # SKYLER: Cr 1.7. Likely from hypotension and dehydration. -s/p IVFs with NS. -f/u BMP. -Avoid nephrotoxins. # Lactic acidosis: Initially 2.7 responded well to fluids this was likely due to his hypotension improved to 1.4 # NIDDM with peripheral neuropathy: ISS. Frequent Accu-Cheks. Hypoglycemic precautions. Continue gabapentin. # Hypertension: Continue home meds. Monitor and titrate # Hypothyroidism: continue Synthroid. # Hyperlipidemia: Continue simvastatin # History of gout: Continue allopurinol # Depression: Continue Prozac # Obesity: BMI 44. Complicates care # DVT prophylaxis: Lovenox prophylactic dosing. If renal function worsens will switch to heparin VS,Fishbone, I+O VS, Fishbone, I+O Laboratory Tests 09/27/20 09:41 09/28/20 07:56 Vital Signs Date Time Temp Pulse Resp B/P (MAP) Pulse Ox O2 Delivery O2 Flow Rate FiO2 09/28/20 05:55 98.0 69 18 148/69 (95) 98 Nasal Cannula 4.0 I&O- Last 24 Hours up to 6 AM 09/28/20 06:00 Intake Total 6465 ml Output Total 400 ml Balance 6065 ml BETY ROUSSEAU MD September 28, 2020 08:58
[2020-09-28] MEDS ORDERED: SODIUM CHLORIDE 0.9% INJ 10 ML SYR IV ONE (12:30)
--- NOTE | 2020-09-28 12:37 | REP ---
INDICATION: r/o PE. COMPARISON: Comparison chest CT study June 01, 2018. Comparison is made with chest x-ray from the previous day, September 27, 2020.. TECHNIQUE: Contrast dose: 75 ML of Isovue [address] technique: Helical scanning is acquired and overlapping 1.5 mm and contiguous 3 mm axial images are reformatted. In addition, maximum intensity projection and multiplanar re-formation images are generated in sagittal and coronal imaging projections. FINDINGS: There is good opacification in the pulmonary arterial tree. There is no evidence of vessel cut off or filling defect to suggest pulmonary embolus. Homogeneous opacity is seen in the thoracic aorta. There is no evidence of aneurysm or dissection. Lung window settings demonstrate patchy alveolar and confluent consolidation in the right upper lobe consistent with pneumonia. No other infiltrate. No pleural effusion is seen. No pericardial effusion is seen. Mild cardiomegaly. In the upper abdomen, there is mild diffuse fatty infiltration of the liver. Normal adrenal glands. The visualized upper abdominal structures are otherwise unremarkable. The central pulmonary arteries are somewhat dilated question pulmonary arterial hypertension. There is some vascular calcification. IMPRESSION: No CT evidence of pulmonary embolus. Right upper lobe pneumonia. Dilated central pulmonary arteries question pulmonary arterial hypertension. <Electronically signed by Jose Diallo > 09/28/20 [id number]
[2020-09-28] MEDS ORDERED: ACETAMINOPHEN TAB 650MG DOSE (2X325MG) PO PRN (13:25)
--- NOTE | 2020-09-28 13:33 | REP ---
INDICATION: r/o dvt. COMPARISON: Comparison study April 20, 2014.. TECHNIQUE: Bilateral lower extremity duplex venous sonography. FINDINGS: The deep veins are anechoic and fully compressible from the groin to the popliteal fossa in the left and right lower extremity. Color flow imaging is homogeneous. Spectral Doppler interrogation demonstrates intact respiratory variation in flow and normal manual augmentation of flow. There is no evidence of deep vein thrombosis. IMPRESSION: Negative bilateral lower extremity duplex venous ultrasound. No evidence of deep vein thrombosis. <Electronically signed by Jose Diallo > 09/28/20 [id number]
[2020-09-28] MEDS ORDERED: atenoloL 25 MG TAB PO SCH (21:00)
[2020-09-28] MEDS ORDERED: lisinopriL 40 MG TAB PO SCH (21:00)
[2020-09-28] MEDS: GABAPENTIN 300 MG CAP PO SCH (21:21)
[2020-09-28] MEDS: SIMVASTATIN 20 MG TAB PO SCH (21:22)
[2020-09-28] MEDS: CYCLOBENZAPRINE 10MG TABLET PO PRN (21:22)
[2020-09-29] VITALS (7 sets, daily range): BP systolic 123–153; BP diastolic 59–80; O2SAT 94–97
[2020-09-29] MEDS: LEVOTHYROXINE 112MCG TABLET (0.112MG) PO SCH (05:48)
[2020-09-29 07:45] LABS: HEMATOCRIT 41.4 % (42.0-52.0); HEMOGLOBIN 13.4 g/dl (13.5-17.5); LYMPH # 0.9 10^3/uL (1.5-5.0); LYMPH % 17.4 % (24.0-44.0); MEAN CORPUSCULAR HEMOGLOBIN 29.5 pg (27.0-33.0); MEAN CORPUSCULAR HGB CONC 32.4 g/dl (32.0-36.5); MONO # 0.5 10^3/uL (0.0-0.8); NEUTROPHILS # 3.9 10^3/uL (1.5-8.5); NEUTROPHILS % 72.7 % (36.0-66.0); PLATELET COUNT, AUTOMATED 149 10^3/uL (150-450); RED BLOOD COUNT 4.55 10^6/uL (4.30-6.10); WHITE BLOOD COUNT 5.4 10^3/uL (4.0-10.0)
[2020-09-29 08:02] LABS: INR 0.98; PROTHROMBIN TIME 13.2 SECONDS (12.5-14.3)
[2020-09-29 08:03] LABS: PARTIAL THROMBOPLASTIN TIME 34.8 SECONDS (24.2-38.5)
[2020-09-29 08:08] LABS: ALBUMIN 3.1 GM/DL (3.2-5.2); ALT/SGPT 51 U/L (12-78); BILIRUBIN,DIRECT < 0.1 MG/DL (0.0-0.2); BILIRUBIN,TOTAL 0.3 MG/DL (0.2-1.0); BLOOD UREA NITROGEN 15 MG/DL (7-18); CALCIUM LEVEL 7.7 MG/DL (8.5-10.1); CARBON DIOXIDE LEVEL 29 MEQ/L (21-32); CHLORIDE LEVEL 110 MEQ/L (98-107); CPK CREATINE PHOSPHOKINASE 318 U/L (39-308); CREATININE FOR GFR 0.71 MG/DL (0.70-1.30); FERRITIN 490 NG/ML (26-388); GLOMERULAR FILTRATION RATE > 60.0 (>56); GLUCOSE, FASTING 126 MG/DL (70-100); LDH LACTATE DEHYDROGENASE 251 U/L (87-241); MAGNESIUM LEVEL 1.8 MG/DL (1.8-2.4); POTASSIUM SERUM 3.8 MEQ/L (3.5-5.1); SODIUM LEVEL 143 MEQ/L (136-145); TOTAL PROTEIN 6.5 GM/DL (6.4-8.2)
[2020-09-29] MEDS: dexameTHASONE 4 MG/ML 1ML VIAL (J1100 PER 1MG) IV SCH (08:27)
[2020-09-29] MEDS: HumaLOG INSULIN (NovoLOG) PER UNIT SC SCH ×2 (08:27→12:36)
[2020-09-29] MEDS: allopurinoL 300 MG TAB PO SCH (08:27)
[2020-09-29] MEDS: FLUoxetine 20 MG CAP PO SCH (08:27)
[2020-09-29] MEDS: ENOXAPARIN 80MG/0.8ML SYRINGE (J1650 PER 10MG) SC SCH (08:27)
[2020-09-29] MEDS: DOXYCYCLINE HYCLATE 100 MG in D5W MINI-BAG PLUS 100 ML IV SCH (10:12)
[2020-09-29] MEDS: cefTRIAXone SOD 1 GM in D5W MINI-BAG PLUS 50 ML IV SCH (11:43)
[2020-09-29] MEDS ORDERED: REMDESIVIR 100 MG in NS 250 ML IV SCH (12:00)
[2020-09-29] MEDS ORDERED: SODIUM CHLORIDE 0.9% INJ 10 ML SYR IV SCH (12:30)
[2020-09-29] MEDS ORDERED: CEFD300CAP PO (13:48)
[2020-09-29] MEDS ORDERED: DOXY-350 PO (13:48)
--- NOTE | 2020-09-29 14:07 | DS.PDOC ---
Discharge Summary General Date of Admission September 27, 2020 at 12:46 Date of Discharge 09/29/2020 Attending Physician: BETY ROUSSEAU MD Discharge Summary PROCEDURES PERFORMED DURING STAY: None ADMITTING DIAGNOSES: RUL PNA DISCHARGE DIAGNOSES: RUL PNA Acute hypoxemia respiratory failure High suspicion of covid-19 infection with elevated inflammatory markers, hypoxemia and entire family that lives with him currently with covid-19 infection, though testing was negative. SKYLER Obesity with suspicion of underlying ROSA MARIA Diabetes mellitus Hypertension Hyperlipidemia Hypothyroidism Psoriasis Depression Gout COMPLICATIONS/CHIEF COMPLAINT: Pneumonia & Sepsis. HISTORY OF PRESENT ILLNESS: 60-year-old M with a past medical history of flt-egiwnrs-rfclxndho diabetes, hypertension, hyperlipidemia, hypothyroidism who was brought into the hospital by EMS due to near syncope and dizziness at home, with a reported 3 days of episodic fevers and on the morning of presentation became very dizzy and almost passed out and brought himself down to his knees twice and never lost consci ousness. He called EMS and his blood pressure was low on site. His and 26 year old son were recently diagnosed with covid-19 infection and are ill but stable enough to recover from home. HOSPITAL COURSE: In the ED he was hypotensive and was given IV fluids. He was tested for Covid and the PCR test came back negative. However he did have elevated inflammatory markers and infiltrates in the RUL on x-ray with findings consistent with RUL CAP which was thought perhaps superimposed on presumed Covid-19 infection despite the negative PCR and was admitted for further workup and management. H is course was c/b an SKYLER that resolved after hydration, a highly elevated D- dimer that prompted a CTA chest to r/o a PE and LE venous doppler US that was negative for a DVT. He was empirically given remdesevir and decadron from high suspicion for covid-19 when he had worsening hypoxemia in addition to ceftriaxone/doxy for CAP, and eventually improved and returned back to room air. Of note, he did have a repeat covid-19 PCR test on 09/29 and it also was negative. He is now being discharged home where he will complete his CAP course with PO cefdinir/doxy. Of note, he was noted to have a dip in his oxygen saturation when asleep with high suspicion for ROSA MARIA and will refer back to PCP to begin workup and referral to pulmonology. DISCHARGE MEDICATIONS: Please see below. ALLERGIES: Please see below. PHYSICAL EXAMINATION ON DISCHARGE: VITAL SIGNS: Please see below. Constitutional: Awake and alert, in no apparent distress, morbidly obese ENT: Sclera are clear and anicteric. Mucosa is moist. Respiratory: Diminished breath sounds throughout. No respiratory distress. No use of accessory muscles. Speaking in full sentences. Breathing comfortably on room air. Cardiovascular: RRR, no m/r/g Abdomen: Obese, normoactive sounds, non distended, non tender Extremities: No lower extremity edema, WWP Neurologic: No focal neurological deficit. Mental Status: A&O x3, normal affect Skin: Skin tags around the neck, psoriatic plaques around the left elbow LABORATORY DATA: Please see below. IMAGING: CTA chest: There is good opacification in the pulmonary arterial tree. There is no evidence of vessel cut off or filling defect to suggest pulmonary embolus. Homogeneous opacity is seen in the thoracic aorta. There is no evidence of aneurysm or dissection. Lung window settings demonstrate patchy alveolar and confluent consolidation in the right upper lobe consistent with pneumonia. No other infiltrate. No pleural effusion is seen. No pericardial effusion is seen. Mild cardiomegaly. In the upper abdomen, there is mild diffuse fatty infiltration of the liver. Normal adrenal glands. The visualized upper abdominal structures are otherwise unremarkable. The central pulmonary arteries are somewhat dilated question pulmonary arterial hypertension. There is some vascular calcification. IMPRESSION: No CT evidence of pulmonary embolus. Right upper lobe pneumonia. Dilated centra l pulmonary arteries question pulmonary arterial hypertension. Bilateral lower extremity duplex venous sonography: The deep veins are anechoic and fully compressible from the groin to the popliteal fossa in the left and right lower extremity. Color flow imaging is homogeneous. Spectral Doppler interrogation demonstrates intact respiratory variation in flow and normal manual augmentation of flow. There is no evidence of deep vein thrombosis. IMPRESSION: Negative bilateral lower extremity duplex venous ultrasound. No evidence of deep vein thrombosis CXR: There is an infiltrate in the right upper perihilar region consistent with pneumonia. Right hemidiaphragm is somewhat elevated unchanged. Lung jimenez are otherwise clear. Heart is not enlarged. Pulmonary vasculature is somewhat cephalized.. EKG monitoring electrodes are seen. IMPRESSION: Right upper lobe infiltrate consistent with pneumonia.. PROGNOSIS: Good ACTIVITY: As tolerated DIET: Consistent carb DISCHARGE PLAN: Home with 7d of cefdinir/doxy and close PCP follow up. DISPOSITION: Home DISCHARGE INSTRUCTIONS: Home with 7d of cefdinir/doxy and close PCP follow up. ITEMS TO FOLLOWUP ON ON OUTPATIENT: CAP - Home with 7d of cefdinir/doxy and close PCP follow up. Likely ROSA MARIA - PCP follow up for potential referral to pulm DISCHARGE CONDITION: Stable TIME SPENT ON DISCHARGE: 43 minutes. Vital Signs/I&Os Vital Signs Date Time Temp Pulse Resp B/P (MAP) Pulse Ox O2 Delivery O2 Flow Rate FiO2 09/29/20 08:30 60 123/59 09/29/20 08:00 97 Room Air 09/29/20 05:43 97.3 20 1.0 I&O- Last 24 Hours up to 6 AM 09/29/20 05:59 Intake Total 3180 ml Output Total 0 ml Balance 3180 ml Laboratory Data Labs 24H Laboratory Tests 2 09/28/20 17:47: Bedside Glucose (Misc Panel) 167H 09/28/20 21:23: Bedside Glucose (Misc Panel) 188H 09/29/20 05:48: Bedside Glucose (Misc Panel) 142H 09/29/20 07:04: Immature Granulocyte % (Auto) 0.9, Neutrophils (%) (Auto) 72.7H, Lymphocytes (%) (Auto) 17.4L, Monocytes (%) (Auto) 9.0H, Eosinophils (%) (Auto) 0.0, Basophils (%) (Auto) 0.0, Neutrophils # (Auto) 3.9, Lymphocytes # (Auto) 0.9L, Monocytes # (Auto) 0.5, Eosinophils # (Auto) 0.0, Basophils # (Auto) 0.0, Nucleated Red Blood Cells % (auto) 0.0, Prothrombin Time 13.2, Prothromb Time International Ratio 0.98, Activated Partial Thromboplast Time 34.8, Fibrinogen 480H, Anion Gap 4L, Glomerular Filtration Rate > 60.0, Calcium Level 7.7L, Magnesium Level 1.8, Ferritin 490H, Total Bilirubin 0.3, Direct Bilirubin < 0.1, Aspartate Amino Transf (AST/SGOT) 46H, Alanine Aminotransferase (ALT/SGPT) 51, Alkaline P hosphatase 90, Lactate Dehydrogenase 251H, Total Creatine Kinase 318#H, Total Protein 6.5, Albumin 3.1L, Albumin/Globulin Ratio 0.9, Procalcitonin 0.07 5/23/21 11:37: Bedside Glucose (Misc Panel) 230H 09/29/20 12:45: Coronavirus (COVID-19)(PCR) NEGATIVE CBC/BMP Laboratory Tests 09/29/20 07:04 FSBS Laboratory Tests Test 09/28/20 17:47 09/28/20 21:23 09/29/20 05:48 09/29/20 11:37 Range/Units Bedside Glucose (Misc Panel) 167 188 142 230 70-105 MG/DL Microbiology Microbiology 09/27/20 Blood Culture - Preliminary, Resulted No Growth after 48 hours. All Specime... 09/27/20 Respiratory Virus Panel (PCR) (JOEY) - Final, Complete 09/27/20 Blood Culture - Preliminary, Resulted No Growth after 48 hours. All Specime... Discharge Medications Scheduled Allopurinol (Zyloprim) 300 Mg Tablet, 300 MG PO DAILY, (Reported) Amlodipine Besylate (Amlodipine Besylate) 10 Mg Tablet, 5 MG PO DAILY, (Reported) Atenolol (Atenolol) 25 Mg Tab, 25 MG PO QHS, (Reported) Cefdinir (Cefdinir) 300 Mg Capsule, 1 CAP PO BID Cyclobenzaprine HCl (Cyclobenzaprine HCl) 10 Mg Tab, 20 MG PO QHS, (Reported) Doxycycline Monohydrate (Doxycycline) 100 Mg Capsule, 1 CAP PO BID Dulaglutide (Trulicity) 0.75 Mg/0.5 Ml Pen.injctr, 0.75 MG SQ QWEEK, (Reported) THURSDAYS Fluoxetine Hcl (Fluoxetine HCl) 20 Mg Cap, 40 MG PO DAILY, (Reported) Gabapentin (Gabapentin) 600 Mg Tablet, 1,200 MG PO QHS, (Reported) Levothyroxine Sodium (Levoxyl) 112 Mcg Tablet, 112 MCG PO DAILY, (Reported) Lisinopril (Lisinopril) 40 Mg Tab, 40 MG PO QHS, (Reported) Metformin HCl (Metformin HCl ER) 750 Mg Tab.er.24h, 750 MG PO BID, (Reported) Simvastatin (Simvastatin) 20 Mg Tab, 20 MG PO QHS, (Reported) Scheduled PRN Aspirin/Acetaminophen/Caffeine (Excedrin Migraine Caplet) 1 Each Tablet, 2 TAB PO BID PRN for HEADACHE, (Reported) Cyclobenzaprine HCl (Cyclobenzaprine HCl) 10 Mg Tablet, 10 MG PO DAILY PRN for MUSCLE SPASMS, (Reported) Gabapentin (Gabapentin) 600 Mg Tablet, 600 MG PO DAILY PRN for PAIN, (Reported) Allergies Coded Allergies: Quinolones (Verified Adverse Reaction, Mild, NAUSEA, 09/27/20) Sulfa (Sulfonamide Antibiotics) (Verified Adverse Reaction, Mild, VERTIGO, 09/27/20) hydrochlorothiazide (Verified Adverse Reaction, Mild, VERTIGO, 09/27/20) BETY ROUSSEAU MD September 29, 2020 14:07
--- NOTE | 2020-09-29 14:08 | IPNPDOC ---
Text Note Date of Service The patient was seen on 09/29/20. NOTE SUBJECTIVE: -No acute vents overnight -Now down to 1L this AM OBJECTIVE: Constitutional: Awake and alert, in no apparent distress, morbidly obese ENT: Sclera are clear and anicteric. Mucosa is moist. Respiratory: Diminished breath sounds throughout. No respiratory distress. No use of accessory muscles. Speaking in full sentences. With nasal canula in place, on 4L NC Cardiovascular: RRR, no m/r/g Abdomen: Obese, normoactive sounds, non distended, non tender Extremities: No lower extremity edema, WWP Neurologic: No focal neurological deficit. Mental Status: A&O x3, normal affect Skin: Skin tags around the neck, psoriatic plaques around the left elbow LABORATORY DATA: Reviewed WBC 5.4 Hgb 13.4 platelets 149 Na 143 K 3.8 Cr 0.71 MICROBIOLOGY: Please see below. Imaging: CTA: no PE and again noted RUL PNA BLE venous doppler US: no DVTs ASSESSMENT/PLAN 60-year-old M with a history of diabetes, hypertension and morbid obesity who [id number] due to presyncope and found to be hypotensive possibly from dehydration found to have pneumonia and presumed Covid 19 infection given close contact with confirmed case as well as acute kidney injury admitted for further workup and management. # Presumed Covid 19 infection: His initial inflammatory markers are elevated fibrinogen 550, d-dimer ~ 4000, thrombocytopenia platelets 146, CRP 5, ferritin 470. Despite a negative Covid PCR test with very high suspicion and therefore admitted with presumed Covid 19 infection given his history of contact with his who was positive as well as his presentation and lab findings. -Prior attending discussed with Stephanie Lundberg, local company hazmat driver and admitted to COVID unit. - Has multiple risk factors for poor outcomes with Covid 19 infection such as obesity, hypertension and diabetes, and hypoxemic with what appears to be superimposed likely bacterial PNA, so will continue with day 3 of 6mg IV dexamethasone -Preemptively started on remdesevir on 09/28 for worsening hypoxemia despite recent negative covid test with high suspicion and elevated inflammatory lynn ers. Day 2 of remdesevir. With plan to stop when he weans off oxygen or after 5d whichever comes sooner. -Trend inflammatory markers. -Lovenox BID, at 0.5mg/kg -O2 target 90% or better -Supplemental O2 -CTA was negative for PE and LE doppler venous scans were negative for DVTs # Superimposed RUL bacterial pneumonia: Calcitonin 0.27. History of fever. No cough or sputum production. Chest x-ray suggestive RUL PNA. -F/u BCx -F/u sputum culture, not expectorating any sputum at this time, to collect. -Incentive spirometry. -Urine strep pneumo, Legionella antigen, mycoplasma pending. -Day 3 of IV antibiotics with ceftriaxone and doxycycline. # Sepsis: 2/2 Pneumonia -Continue antibiotics and IV fluids for now. -Follow-up blood cultures. # SKYLER: Cr 1.7. Likely from hypotension and dehydration. Resolved. -s/p IVFs with NS. -f/u BMP. -Avoid nephrotoxins. # Lactic acidosis: Initially 2.7 responded well to fluids this was likely due to his hypotension improved to 1.4 # NIDDM with peripheral neuropathy: ISS. Frequent Accu-Cheks. Hypoglycemic precautions. Continue gabapentin. # Hypertension: Continue home meds. Monitor and titrate # Hypothyroidism: continue Synthroid. # Hyperlipidemia: Continue simvastatin # History of gout: Continue allopurinol # Depression: Continue Prozac # Obesity: BMI 44. Complicates care # DVT prophylaxis: Lovenox prophylactic dosing. If renal function worsens will switch to heparin VS,Fishbone, I+O VS, Fishbone, I+O Laboratory Tests 09/29/20 07:04 Vital Signs Date Time Temp Pulse Resp B/P (MAP) Pulse Ox O2 Delivery O2 Flow Rate FiO2 09/29/20 08:30 60 123/59 09/29/20 05:43 97.3 20 94 Nasal Cannula 1.0 I&O- Last 24 Hours up to 6 AM 09/29/20 06:00 Intake Total 2300 ml Output Total 0 ml Balance 2300 ml BETY ROUSSEAU MD September 29, 2020 09:14
[2020-09-30 14:08] LABS: MYCOPLASMA PNEUMONIAE IgG 164 U/mL (0-99); MYCOPLASMA PNEUMONIAE IgM <770 U/mL (0-769)
[2020-10-04 13:07] LABS: BODY FLUID CULTURE Not indicated. (.); LEGIONELLA ANTIGEN URINE Negative (Negative); ORGANISM ID Not indicated. (.); SPECIMEN SOURCE Urine (.); URINE STREP PNEUMONIAE ANTIGEN Negative (Negative)
== END 2020-09-29 14:45 | disposition home health service (06) | DRG 194 ==
LOC: M ED 09:12 → M ED INP 12:46 → ENRESERV 14:11 → M 4MAIN 16:00
PROVIDERS: ADMIT Family Medicine; ATTEND Internal Medicine
PROC: 3E0333Z Introduction of Anti-inflammatory into Peripheral Vein, Percutaneous Approach (ICD-10-PCS; 2020-09-27)
PROC: XW033E5 Introduction of Remdesivir Anti-infective into Peripheral Vein, Percutaneous Approach, New Technology Group 5 (ICD-10-PCS; principal; 2020-09-28)
DX: J15.9 Unspecified bacterial pneumonia (principal); N17.9 Acute kidney failure, unspecified; E87.2 Acidosis; Z68.41 Body mass index [BMI] 40.0-44.9, adult; E11.42 Type 2 diabetes mellitus with diabetic polyneuropathy; I10 Essential (primary) hypertension; E78.5 Hyperlipidemia, unspecified; E03.9 Hypothyroidism, unspecified; L40.9 Psoriasis, unspecified; F32.9 Major depressive disorder, single episode, unspecified; M10.9 Gout, unspecified; E66.01 Morbid (severe) obesity due to excess calories; Z79.84 Long term (current) use of oral hypoglycemic drugs; Z79.899 Other long term (current) drug therapy; Z88.1 Allergy status to other antibiotic agents; Z88.2 Allergy status to sulfonamides; Z88.8 Allergy status to other drugs, medicaments and biological substances; Z20.822 Contact with and (suspected) exposure to COVID-19

== ENCOUNTER 2020-10-04 10:09 | Inpatient (IN) | payer MEDICARE, OTHER ==
[~2020-10-04] VITALS: Ht 190.5 cm; Wt 157.7 kg
[~2020-10-04 10:09] MED LIST changes: +AMLO1TAB25 PO; +CEFD300CAP PO; +DOXY-350 PO; +EXCETAB33 PO; +GABA600T4 PO; +LEVO112T25 PO; +METF750T36 PO; +TRUL10IN SQ; +ZYLO300T6 PO
[2020-10-04 11:18] LABS: BASO % 0.3 % (0.0-1.0); EOS % 0.1 % (0.0-3.0); HEMATOCRIT 46.6 % (42.0-52.0); HEMOGLOBIN 15.4 g/dl (13.5-17.5); LYMPH % 10.7 % (24.0-44.0); MEAN CORPUSCULAR VOLUME 87.8 fl (80.0-96.0); MONO % 10.3 % (2.0-8.0); NEUTROPHILS # 7.5 10^3/uL (1.5-8.5); NEUTROPHILS % 77.3 % (36.0-66.0); PLATELET COUNT, AUTOMATED 207 10^3/uL (150-450); RED BLOOD COUNT 5.31 10^6/uL (4.30-6.10); WHITE BLOOD COUNT 9.6 10^3/uL (4.0-10.0)
[2020-10-04] MEDS ORDERED: NS IV ONE (11:40)
[2020-10-04 11:51] LABS: ABG BASE EXCESS -1.7 (-2.0-2.0); ABG HCO3 22.1 MEQ/L (22.0-26.0); ABG O2 SATURATION 95.9 % (95.0-99.0); ABG PARTIAL PRESSURE O2 79.7 mmHg (75.0-100.0); ABG TOTAL CO2 23.2 MEQ/L (22.0-29.0); ABG pH (ARTERIAL) 7.418 UNITS (7.350-7.450)
[2020-10-04 11:53] LABS: ALBUMIN 3.2 GM/DL (3.2-5.2); ALT/SGPT 63 U/L (12-78); BILIRUBIN,TOTAL 0.8 MG/DL (0.2-1.0); BLOOD UREA NITROGEN 18 MG/DL (7-18); CALCIUM LEVEL 8.8 MG/DL (8.5-10.1); CARBON DIOXIDE LEVEL 27 MEQ/L (21-32); CHLORIDE LEVEL 105 MEQ/L (98-107); CREATININE FOR GFR 1.23 MG/DL (0.70-1.30); GLOMERULAR FILTRATION RATE > 60.0 (>56); GLUCOSE, FASTING 180 MG/DL (70-100); POTASSIUM SERUM 3.6 MEQ/L (3.5-5.1); SODIUM LEVEL 140 MEQ/L (136-145); TOTAL PROTEIN 6.6 GM/DL (6.4-8.2)
[2020-10-04 12:12] LABS: D-DIMER QUANT 548.21 ng/ml (<500)
--- NOTE | 2020-10-04 12:19 | REP ---
INDICATION: SEPSIS/SHOCK COMPARISON: 09/27/2020 TECHNIQUE: Portable AP view of the chest FINDINGS: The mediastinum and cardiac silhouette are stable and within normal limits for portable technique. Very subtle right upper lobe infiltrate is again suggested and possibly mildly improved. No new consolidation, effusion, or pneumothorax. Skeletal structures are intact. IMPRESSION: Subtle right upper lobe infiltrate appears mildly improved. <Electronically signed by Gabe Hoffman > 10/04/20 [id number]
[2020-10-04] MEDS ORDERED: ISOVUE-370 76% 100ML VIAL As Ordered ONE (12:34)
[2020-10-04 12:55] LABS: ALT/SGPT 59 U/L (12-78); BILIRUBIN,DIRECT 0.3 MG/DL (0.0-0.2); BILIRUBIN,TOTAL 0.7 MG/DL (0.2-1.0); CK-MB VALUE MASS < 1.0 NG/ML (<3.6); CPK CREATINE PHOSPHOKINASE 44 U/L (39-308); MB/CK RELATIVE INDEX 2.27 (< OR =4); NT-PRO BNP 295 PG/ML (<125); THYROXINE (T4) 12.6 UG/DL (4.5-12.0); TROPONIN I 0.08 NG/ML (< 0.10)
--- NOTE | 2020-10-04 13:07 | REP ---
INDICATION: near-syncope. COMPARISON: Comparison CT pulmonary angiogram is from September 28, 2020.. TECHNIQUE: Contrast dose: 75 ML of Isovue [address] technique: Helical scanning is acquired and overlapping 1.5 mm and contiguous 3 mm axial images are reformatted. In addition, maximum intensity projection and multiplanar re-formation images are generated in sagittal and coronal imaging projections. FINDINGS: There is good opacification in the pulmonary arterial tree. There is no evidence of vessel cut off or filling defect to suggest pulmonary embolus. Homogeneous opacity is seen in the thoracic aorta. There is no evidence of aneurysm or dissection. Lung window settings demonstrate bilateral patchy infiltrates consistent with pneumonia. These are more extensive than they were on the study done 1 week ago. The largest infiltrate is in the right upper lobe but there are new patchy areas of ground-glass opacity in the left upper lobe, elsewhere in the right upper lobe, and in both lower lobes. No pleural effusion or pericardial effusion is seen. Central pulmonary arteries remain prominent unchanged. In the upper abdomen, no adrenal abnormality is seen. There is moderate fatty infiltration of the liver. IMPRESSION: No CT evidence of pulmonary embolus. Progressive pneumonia pattern. No pleural effusion seen. Fatty infiltration of the liver. Centrally prominent pulmonary arteries again seen unchanged. <Electronically signed by Jose Diallo > 10/04/20 [id number]
[2020-10-04 13:36] LABS: PROTHROMBIN TIME 13.4 SECONDS (12.5-14.3)
[2020-10-04 13:50] LABS: C REACTIVE PROTEIN QUANTITATIV 11.6 MG/DL (0.00-0.30); MAGNESIUM LEVEL 1.9 MG/DL (1.8-2.4)
[2020-10-04] MEDS ORDERED: ACETAMINOPHEN TAB 650MG DOSE (2X325MG) PO PRN (15:10)
[2020-10-04] MEDS ORDERED: CEFD1CAP8 PO (15:16)
[2020-10-04] MEDS ORDERED: DOXY-259 PO (15:16)
[2020-10-04] MEDS ORDERED: CYCLOBENZAPRINE 10MG TABLET PO PRN (15:30)
[2020-10-04] MEDS ORDERED: EXCEDRIN MIGRAINE TABLET PO PRN (15:30)
[2020-10-04] MEDS ORDERED: GLUCAGON INJ 1MG VIAL SC PRN (16:10)
[2020-10-04] MEDS ORDERED: DEXTROSE 50% 50 ML SYRINGE IV PRN (16:10)
[2020-10-04] MEDS ORDERED: GLUCOSE 4GM CHEW TABLET PO PRN (16:10)
--- NOTE | 2020-10-04 16:37 | HPEPDOC ---
[facility] Medical History & Physical Date of Admission October 04, 2020 Date of Service: October 04, 2020 Attending Physician: BETY ROUSSEAU MD History and Physical CHIEF COMPLAINT: dyspnea, hypotension noted in PCP's office and feeling faint HISTORY OF PRESENT ILLNESS: 60-year-old M with a history of csq-txsqxnt-eriokptqe diabetes, hypertension, hyperlipidemia, hypothyroidism who was recently admitted for CAP with high suspicion for covid-19 infection though he tested negative twice and was di scharged home on CAP antibiotics, who returns per the recommendation of his PCP when he presented reporting feeling unwell, weak, dizzy, with now worsening SOB and found to be hypotensive in clinic with hypoxemia and was sent to the ED where he was found be hypotensive to SBP low 90s and hypoxemic requiring 5L NC to saturate above 90s but otherwise afebrile. While in the ED he was given a sepsis bolus of 30cc/kg with improvement in his BP. Workup was remarkable for WBC 9.6, Hgb 15.4, platelets 207, na 140, K 3.6, Cr 1.23, D-dimer 548, procalcitonin 0.23, EKG with NSR with nonspecific T wave abnormalities as previously noted, troponin 0.08, and purposed mostly importantly today is covid-19 positive and CTA showed bilateral GGOs with the largest in the RUL, without evidence of PE or effusions. He is now being admitted for covid-19 PNA with hypoxemic respiratory failure and SIRS criteria c/f sepsis vs. dehydration in the setting of covid-19 PNA. PAST MEDICAL/SURGICAL HISTORY: Arb-xegqocx-hasdtxoaj diabetes Hypertension Hyperlipidemia Hypothyroidism Psoriasis Depression Gout Left elbow surgery SOCIAL HISTORY: Endorses drinking alcohol but only socially Denies tobacco use Denies illicit drug use FAMILY HISTORY: Mother had a history of breast cancer Father had a history of lung cancer ALLERGIES: Please see below. REVIEW OF SYSTEMS: 10 point review of systems complete all negative otherwise stated in HPI HOME MEDICATIONS: Please see below. PHYSICAL EXAMINATION: Constitutional: Sleepy, alert on voice, in no apparent distress, morbidly obese ENT: Anicteric, non injected. Mucosa is moist. Respiratory: Lungs diminished breath sounds bilaterally R>L. No respiratory distress during my examination. Cardiovascular: Regular rate and rhythm Gastrointestinal: Abdomen is soft, non distended, non tender, BS present. Musculoskeletal: No lower extremity edema. Neurologic: No focal neurological deficit. Mental Status: A&O x3, normal affect Skin: Multiple skin tags around the neck, psoriatic plaques around bilateral elbows LABORATORY DATA and IMAGING: noted above. See below for full details MICROBIOLOGY: Please see below. ASSESSMENT: 60-year-old M with a history of zdr-rndmazs-cabwptzyx diabetes, hypertension, hyperlipidemia, hypothyroidism who was recently admitted for CAP with high suspicion for covid-19 infection though he tested negative twice and was dis charged home on CAP antibiotics, who returned feeling increasingly unwell, weak, dizzy, with now worsening SOB and found to have confirmed covid-19 PNA with hypoxemic respiratory failure and SIRS criteria c/f sepsis vs. dehydration in the setting of covid-19 PNA. # Covid-19 PNA: +PCR, GGOs on CT, hypoxemia, with elevated inflammatory markers - Trend inflammatory markers. -Start 6mg dexamethasone daily. -Supplemental oxygen to goal saturation of 90% -Remdesevir daily for 5d -Spoke with Dr. Portillo and agreed with giving tocilizumab dose, 800mg -Lovenox BID, intermediate dosing -Q4H oxygen saturations with vitals -albuterol mdi PRN -Currently not coughing, but may add on tessalon perles if cough develops -With a procalcitonin of 0.23, unlikely to have bacterial component especially having just completed a course for CAP. Will hold off for now. -incentive spirometry # Acute hypoxemic respiratory failure: -Treat as noted above for covid-19 infection -supplemental oxygen with goal >90% -Incentive spirometry # +SIRS criteria c/f sepsis vs. dehydration in the setting of covid-19 PNA. -supportive treatment as noted above -s/p sepsis bolus will hold off more hydration and allow him to drink to thirst # hypotension: Now resolved. -Responded well to IV fluids. -Possibly from dehydration as he reports poor PO over the past several days while he is ill. # NIDDM with peripheral neuropathy: -ISS AC/HS -FSBG AC/HS -Hypoglycemic precautions. -Continue gabapentin. # Hypertension: -Hold all home BP meds # Hypothyroidism: -resume Synthroid -check free T4 # Hyperlipidemia: -Continue simvastatin # History of gout: -Continue allopurinol # Depression: -Continue Prozac # Obesity: BMI 44. Complicates care # DVT prophylaxis: Lovenox BID Vital Signs Vital Signs Date Time Temp Pulse Resp B/P (MAP) Pulse Ox O2 Delivery O2 Flow Rate FiO2 10/04/20 14:40 56 94 Nasal Cannula 5.0 10/04/20 14:30 123/58 (79) 10/04/20 11:36 16 10/04/20 10:10 96.2 Laboratory Data Labs 24H Laboratory Tests 2 10/04/20 10:58: Magnesium Level 1.9, Ferritin 394H, Lactate Dehydrogenase 261H, C-Reactive Protein, Quantitative 11.60H 10/04/20 11:00: Immature Granulocyte % (Auto) 1.3, Neutrophils (%) (Auto) 77.3H, Lymphocytes (%) (Auto) 10.7L, Monocytes (%) (Auto) 10.3H, Eosinophils (%) (Auto) 0.1, Basophils (%) (Auto) 0.3, Neutrophils # (Auto) 7.5, Lymphocytes # (Auto) 1.0L, Monocytes # (Auto) 1.0H, Eosinophils # (Auto) 0.0, Basophils # (Auto) 0.0, Nucleated Red Blood Cells % (auto) 0.0, Anion Gap 8, Glomerular Filtration Rate > 60.0, Calcium Level 8.8, Total Bilirubin 0.8, Aspartate Amino Transf (AST/SGOT) 43H, Alanine Aminotransferase (ALT/SGPT) 63, Alkaline Phosphatase 108, Total Protein 6.6, Albumin 3.2, Albumin/Globulin Ratio 0.9 10/04/20 11:30: Blood Gas Bicarbonate Standard 23.0, Arterial Blood pH 7.418, Arterial Blood Partial Pressure CO2 35.0, Arterial Blood Partial Pressure O2 79.7, Arterial Blood Total CO2 23.2, Arterial Blood HCO3 22.1, Arterial Blood Base Excess -1.7, Arterial Blood Oxygen Saturation 95.9 10/04/20 11:44: Prothrombin Time 13.4, Prothromb Time International Ratio 1.00, Activated Partial Thromboplast Time 34.0, Fibrinogen 616H, D-Dimer, Quantitative 548.21H, Lactic Acid Level 2.2*H 10/04/20 11:57: Procalcitonin 0.23 10/04/20 11:58: Total Bilirubin 0.7, Direct Bilirubin 0.3H, Aspartate Amino Transf (AST/SGOT) 41H, Alanine Aminotransferase (ALT/SGPT) 59, Alkaline Phosphatase 96, Total Creatine Kinase 44, Creatine Kinase MB < 1.0, Creatine Kinase MB Relative Index 2.27, Troponin I 0.08, YC-Ehp-B-Type Natriuretic Peptide 295H, Total Protein 6.0L, Albumin 3.0L, Albumin/Globulin Ratio 1.0, Thyroid Stimulating Hormone (TSH) 3.960H, Thyroxine (T4) 12.6H CBC/BMP Laboratory Tests 10/04/20 11:00 Microbiology Microbiology 10/04/20 Blood Culture, Received Pending 10/04/20 Respiratory Virus Panel (PCR) (JOEY) - Final, Complete SARS-CoV-2 (COVID 19) 10/04/20 Blood Culture, Received Pending Home Medications Scheduled Allopurinol (Zyloprim) 300 Mg Tablet, 300 MG PO DAILY Amlodipine Besylate (Amlodipine Besylate) 10 Mg Tablet, 5 MG PO DAILY Atenolol (Atenolol) 25 Mg Tab, 25 MG PO QHS Cefdinir (Cefdinir) 300 Mg Capsule, 300 MG PO BID started 09/30/20 for 7 days Cyclobenzaprine HCl (Cyclobenzaprine HCl) 10 Mg Tab, 20 MG PO QHS Doxycycline Hyclate (Doxycycline Hyclate) 100 Mg Tablet.dr, 100 MG PO BID started 09/30/20 for 7 days Dulaglutide (Trulicity) 0.75 Mg/0.5 Ml Pen.injctr, 0.75 MG SQ QWEEK THURSDAYS Fluoxetine Hcl (Fluoxetine HCl) 20 Mg Cap, 40 MG PO DAILY Gabapentin (Gabapentin) 600 Mg Tablet, 1,200 MG PO QHS Levothyroxine Sodium (Levoxyl) 112 Mcg Tablet, 112 MCG PO DAILY Lisinopril (Lisinopril) 40 Mg Tab, 40 MG PO QHS Metformin HCl (Metformin HCl ER) 750 Mg Tab.er.24h, 750 MG PO BID Simvastatin (Simvastatin) 20 Mg Tab, 20 MG PO QHS Scheduled PRN Aspirin/Acetaminophen/Caffeine (Excedrin Migraine Caplet) 1 Each Tablet, 2 TAB PO BID PRN for HEADACHE Cyclobenzaprine HCl (Cyclobenzaprine HCl) 10 Mg Tablet, 10 MG PO DAILY PRN for MUSCLE SPASMS Allergies Coded Allergies: Quinolones (Verified Adverse Reaction, Mild, NAUSEA, 09/27/20) Sulfa (Sulfonamide Antibiotics) (Verified Adverse Reaction, Mild, VERTIGO, 09/27/20) hydrochlorothiazide (Verified Adverse Reaction, Mild, VERTIGO, 09/27/20) A-FIB/CHADSVASC A-FIB History Current/History of A-Fib/PAF?: No Current PO Anticoag Therapy: No Age/Risk Factor Scoring CHADSVASC: CHADSVASC Response (Comments) Value Age Risk Factor Age < 65 years old 0 Gender Risk Factor Male 0 Hx of CHF No 0 Hx of HTN Yes 1 Hx of Stroke/TIA/or VTE No 0 Hx of Diabetes Yes 1 Hx of Vascular Disease No 0 Total 2 Treatment Treatment ordered: NONE Reason Anticoagulant not given: Not indicated/[id number] BETY ROUSSEAU MD October 04, 2020 16:37
[2020-10-04] MEDS ORDERED: ALBUTEROL 90 MCG/ACT 8GM HFA INHALER INH PRN (16:40)
[2020-10-04 17:23] LABS: INR 1.07; PARTIAL THROMBOPLASTIN TIME 30.7 SECONDS (24.2-38.5); PROTHROMBIN TIME 14.1 SECONDS (12.5-14.3)
[2020-10-04] MEDS: HumaLOG INSULIN (NovoLOG) PER UNIT SC SCH ×2 (17:30→21:00)
[2020-10-04 18:44] VITALS: BP 145/87
[2020-10-04] MEDS: ASPIRIN 81MG ENTERIC TABLET PO SCH (18:54)
[2020-10-04] MEDS: dexameTHASONE 4 MG/ML 1ML VIAL (J1100 PER 1MG) IV SCH (18:54)
[2020-10-04] MEDS: ENOXAPARIN 80MG/0.8ML SYRINGE (J1650 PER 10MG) SC SCH (18:54)
[2020-10-04] MEDS ORDERED: TOCILIZUMAB 800 MG in NS 60 ML IV ONE (19:00)
[2020-10-04 19:04] VITALS: O2SAT 91
[2020-10-04 20:00] VITALS: BP 145/92
[2020-10-04] MEDS ORDERED: REMDESIVIR 200 MG in NS 250 ML IV ONE (20:00)
[2020-10-04] MEDS ORDERED: EPINEPHrine INJ 1 MG/ML 1ML AMP IV SCH (21:00)
[2020-10-04] MEDS ORDERED: diphenhydrAMINE 50MG/ML VIAL (J1200) IV ONE (21:00)
[2020-10-04] MEDS: SIMVASTATIN 20 MG TAB PO SCH (21:04)
[2020-10-04] MEDS: GABAPENTIN 300 MG CAP PO SCH (21:04)
[2020-10-04 21:58] VITALS: O2SAT 94
[2020-10-04] MEDS ORDERED: SODIUM CHLORIDE 0.9% INJ 10 ML SYR IV ONE (22:00)
[2020-10-04 23:29] VITALS: BP 145/78
[2020-10-04 23:44] VITALS: BP 146/79
[2020-10-04] MEDS: CYCLOBENZAPRINE 10MG TABLET PO SCH (23:50)
[2020-10-05] VITALS (10 sets, daily range): BP systolic 143–168; BP diastolic 75–90; O2SAT 94–97
[2020-10-05] MEDS: LEVOTHYROXINE 112MCG TABLET (0.112MG) PO SCH (06:05)
[2020-10-05] MEDS: ENOXAPARIN 80MG/0.8ML SYRINGE (J1650 PER 10MG) SC SCH ×2 (06:06→17:29)
[2020-10-05 07:30] LABS: BASO % 0.3 % (0.0-1.0); LYMPH # 0.4 10^3/uL (1.5-5.0); LYMPH % 13.5 % (24.0-44.0); MEAN CORPUSCULAR HEMOGLOBIN 29.3 pg (27.0-33.0); MEAN CORPUSCULAR VOLUME 88.9 fl (80.0-96.0); MONO # 0.2 10^3/uL (0.0-0.8); MONO % 7.6 % (2.0-8.0); NEUTROPHILS # 2.3 10^3/uL (1.5-8.5); PLATELET COUNT, AUTOMATED 160 10^3/uL (150-450)
[2020-10-05] MEDS: HumaLOG INSULIN (NovoLOG) PER UNIT SC SCH ×4 (07:32→20:48)
[2020-10-05 07:34] LABS: HEMOGLOBIN 13.2 g/dl (13.5-17.5)
[2020-10-05 07:53] LABS: ALBUMIN 2.6 GM/DL (3.2-5.2); ALT/SGPT 47 U/L (12-78); BILIRUBIN,DIRECT 0.2 MG/DL (0.0-0.2); BILIRUBIN,TOTAL 0.4 MG/DL (0.2-1.0); BLOOD UREA NITROGEN 18 MG/DL (7-18); CARBON DIOXIDE LEVEL 27 MEQ/L (21-32); CHLORIDE LEVEL 110 MEQ/L (98-107); CREATININE FOR GFR 0.63 MG/DL (0.70-1.30); GLOMERULAR FILTRATION RATE > 60.0 (>56); GLUCOSE, FASTING 168 MG/DL (70-100); POTASSIUM SERUM 4.1 MEQ/L (3.5-5.1); SODIUM LEVEL 143 MEQ/L (136-145); TOTAL PROTEIN 5.5 GM/DL (6.4-8.2)
[2020-10-05] MEDS: ASPIRIN 81MG ENTERIC TABLET PO SCH (08:15)
[2020-10-05] MEDS: dexameTHASONE 4 MG/ML 1ML VIAL (J1100 PER 1MG) IV SCH (08:16)
[2020-10-05] MEDS: FLUoxetine 20 MG CAP PO SCH (08:16)
[2020-10-05] MEDS: allopurinoL 300 MG TAB PO SCH (08:16)
--- NOTE | 2020-10-05 08:30 | IPNPDOC ---
Text Note Date of Service The patient was seen on 10/05/20. NOTE SUBJECTIVE: -No acute events -Currently on 1L this morning PHYSICAL EXAMINATION: Constitutional: Awake, alert, morbidly obese, in no apparent distress ENT: Anicteric, non injected. Mucosa is moist. Respiratory: Lungs diminished breath sounds bilaterally R>L. Cardiovascular: Regular rate and rhythm, no noted murmurs Gastrointestinal: Abdomen is soft, non distended, non tender, BS present. Musculoskeletal: No lower extremity edema. Neurologic: No focal neurological deficit. Mental Status: A&O x3, normal affect Skin: Multiple skin tags around the neck, psoriatic plaques around bilateral elbows LABORATORY DATA: Reviewed WBC 3 Hgb 13.2 platelets 160 Na 143 K 4.1 Cr 0.63 MICROBIOLOGY: Please see below. ASSESSMENT: 60-year-old M with a history of rgi-tafayjb-hzmjksbbu diabetes, hypertension, hyperlipidemia, hypothyroidism who was recently admitted for CAP with high suspicion for covid-19 infection though he tested negative twice and was discharged home on CAP antibiotics, who returned feeling increasingly unwell, weak, dizzy, with now worsening SOB and found to have confirmed covid-19 PNA with hypoxemic respiratory failure and SIRS criteria c/f sepsis vs. dehydration in the setting of covid-19 PNA. # Covid-19 PNA: +PCR, GGOs on CT, hypoxemia, with elevated inflammatory markers -Trend inflammatory markers. -Day #2 of 6mg dexamethasone daily. -Supplemental oxygen to goal saturation of 90% -Day #2 of Remdesevir daily -s/p tocilizumab on 10/04 -Lovenox BID, intermediate dosing -Q4H oxygen saturations with vitals -albuterol mdi PRN -Currently not coughing, but may add on tessalon perles if cough develops -With a procalcitonin of 0.23, unlikely to have bacterial component especially having just completed a course for CAP. Will hold off for now. f/u repeat -incentive spirometry # Acute hypoxemic respiratory failure: -Treat as noted above for covid-19 infection -supplemental oxygen with goal >90% -Incentive spirometry # +SIRS criteria c/f sepsis vs. dehydration in the setting of covid-19 PNA. -supportive treatment as noted above -s/p sepsis bolus will hold off more hydration and allow him to drink to thirst # hypotension: Now resolved. -Responded well to IV fluids. -Possibly from dehydration as he reports poor PO over the past several days while he is ill. # NIDDM with peripheral neuropathy: -ISS AC/HS -FSBG AC/HS -Hypoglycemic precautions. -Continue gabapentin. # Hypertension: -Restart amlodipine 5mg QD and atenolol 25 QHS, continue to hold ACEi, will restart it last as BP normalizes from the hypotension at presentation. # Hypothyroidism: -resume Synthroid -check free T4 # Hyperlipidemia: -Continue simvastatin # History of gout: -Continue allopurinol # Depression: -Continue Prozac # Obesity: BMI 44. Complicates care # DVT prophylaxis: Lovenox BID VS,Fishbone, I+O VS, Fishbone, I+O Laboratory Tests 10/04/20 11:00 10/05/20 06:53 Vital Signs Date Time Temp Pulse Resp B/P (MAP) Pulse Ox O2 Delivery O2 Flow Rate FiO2 10/05/20 08:00 96.4 70 19 155/83 (107) 94 Nasal Cannula 1.0 I&O- Last 24 Hours up to 6 AM 10/05/20 06:00 Intake Total 3870 ml Balance 3870 ml BETY ROUSSEAU MD October 05, 2020 08:30
[2020-10-05 08:49] LABS: FREE T4 1.42 NG/DL (0.76-1.46)
--- NOTE | 2020-10-05 08:49 | ECGEPIP ---
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
[2020-10-05] MEDS: amLODIPine 5 MG TAB PO SCH (09:43)
[2020-10-05] MEDS ORDERED: REMDESIVIR 100 MG in NS 250 ML IV SCH (18:00)
[2020-10-05] MEDS ORDERED: SODIUM CHLORIDE 0.9% INJ 10 ML SYR IV SCH (19:00)
[2020-10-05] MEDS: GABAPENTIN 300 MG CAP PO SCH (20:44)
[2020-10-05] MEDS: SIMVASTATIN 20 MG TAB PO SCH (20:47)
[2020-10-05] MEDS: CYCLOBENZAPRINE 10MG TABLET PO SCH (20:53)
[2020-10-05] MEDS ORDERED: atenoloL 25 MG TAB PO SCH (21:00)
[2020-10-06] VITALS: O2SAT 95
[2020-10-06 04:00] VITALS: O2SAT 90
[2020-10-06 05:46] VITALS: BP 152/82
[2020-10-06] MEDS: ENOXAPARIN 80MG/0.8ML SYRINGE (J1650 PER 10MG) SC SCH (05:53)
[2020-10-06] MEDS: LEVOTHYROXINE 112MCG TABLET (0.112MG) PO SCH (05:53)
[2020-10-06 06:38] LABS: BASO % 0.2 % (0.0-1.0); HEMATOCRIT 37.3 % (42.0-52.0); HEMOGLOBIN 12.4 g/dl (13.5-17.5); LYMPH # 0.7 10^3/uL (1.5-5.0); LYMPH % 12.7 % (24.0-44.0); MEAN CORPUSCULAR HEMOGLOBIN 29.7 pg (27.0-33.0); MEAN CORPUSCULAR HGB CONC 33.2 g/dl (32.0-36.5); MEAN CORPUSCULAR VOLUME 89.4 fl (80.0-96.0); MONO # 0.5 10^3/uL (0.0-0.8); MONO % 9.8 % (2.0-8.0); PLATELET COUNT, AUTOMATED 175 10^3/uL (150-450); RED BLOOD COUNT 4.17 10^6/uL (4.30-6.10); WHITE BLOOD COUNT 5.3 10^3/uL (4.0-10.0)
[2020-10-06 06:50] LABS: INR 1.06
[2020-10-06 06:51] LABS: PARTIAL THROMBOPLASTIN TIME 31.1 SECONDS (24.2-38.5)
[2020-10-06 07:06] LABS: ALBUMIN 2.6 GM/DL (3.2-5.2); ALT/SGPT 36 U/L (12-78); BILIRUBIN,DIRECT 0.1 MG/DL (0.0-0.2); BILIRUBIN,TOTAL 0.3 MG/DL (0.2-1.0); BLOOD UREA NITROGEN 17 MG/DL (7-18); CALCIUM LEVEL 8.3 MG/DL (8.5-10.1); CARBON DIOXIDE LEVEL 31 MEQ/L (21-32); CHLORIDE LEVEL 108 MEQ/L (98-107); CPK CREATINE PHOSPHOKINASE 49 U/L (39-308); FERRITIN 332 NG/ML (26-388); GLOMERULAR FILTRATION RATE > 60.0 (>56); GLUCOSE, FASTING 176 MG/DL (70-100); LDH LACTATE DEHYDROGENASE 205 U/L (87-241); MAGNESIUM LEVEL 1.7 MG/DL (1.8-2.4); NT-PRO BNP 92 PG/ML (<125); SODIUM LEVEL 145 MEQ/L (136-145); TOTAL PROTEIN 5.3 GM/DL (6.4-8.2); TROPONIN I 0.07 NG/ML (< 0.10)
[2020-10-06] MEDS: HumaLOG INSULIN (NovoLOG) PER UNIT SC SCH (07:48)
[2020-10-06 08:00] VITALS: BP 141/81; O2SAT 97
[2020-10-06] MEDS: FLUoxetine 20 MG CAP PO SCH (08:18)
[2020-10-06] MEDS: ASPIRIN 81MG ENTERIC TABLET PO SCH (08:18)
[2020-10-06 08:19] VITALS: BP 141/81
[2020-10-06] MEDS: amLODIPine 5 MG TAB PO SCH (08:19)
[2020-10-06] MEDS: allopurinoL 300 MG TAB PO SCH (08:19)
[2020-10-06] MEDS: dexameTHASONE 4 MG/ML 1ML VIAL (J1100 PER 1MG) IV SCH (08:19)
[2020-10-06] MEDS ORDERED: ASPI-551 PO (09:15)
[2020-10-06] MEDS ORDERED: VENTAER INH (09:15)
[2020-10-06] MEDS ORDERED: TESS100C PO (09:15)
--- NOTE | 2020-10-06 10:58 | IPNPDOC ---
Text Note Date of Service The patient was seen on 10/06/20. NOTE SUBJECTIVE: -No acute events -Currently on room air PHYSICAL EXAMINATION: Constitutional: Awake, alert, morbidly obese, in no apparent distress ENT: Anicteric, non injected. Mucosa is moist. Respiratory: Lungs diminished breath sounds bilaterally R>L. Cardiovascular: Regular rate and rhythm, no noted murmurs Gastrointestinal: Abdomen is soft, non distended, non tender, BS present. Musculoskeletal: No lower extremity edema. Neurologic: No focal neurological deficit. Mental Status: A&O x3, normal affect Skin: Multiple skin tags around the neck, psoriatic plaques around bilateral elbows LABORATORY DATA: Reviewed WBC 3 Hgb 13.2 platelets 160 Na 143 K 4.1 Cr 0.63 MICROBIOLOGY: Please see below. ASSESSMENT: 60-year-old M with a history of bpz-swarfhc-dduhtnfpj diabetes, hypertension, hyperlipidemia, hypothyroidism who was recently admitted for CAP with high suspicion for covid-19 infection though he tested negative twice and was discharged home on CAP antibiotics, who returned feeling increasingly unwell, weak, dizzy, with now worsening SOB and found to have confirmed covid-19 PNA with hypoxemic respiratory failure and SIRS criteria c/f sepsis vs. dehydration in the setting of covid-19 PNA. # Covid-19 PNA: +PCR, GGOs on CT, hypoxemia, with elevated inflammatory markers -Trend inflammatory markers. -Day #3 of 6mg dexamethasone daily. -Supplemental oxygen to goal saturation of 90%. Currently on room air -Day #3 of Remdesevir daily -s/p tocilizumab on 10/04 -Lovenox BID, intermediate dosing -Q4H oxygen saturations with vitals -albuterol mdi PRN -Currently not coughing, but may add on tessalon perles if cough develops -With a procalcitonin of 0.23, unlikely to have bacterial component especially having just completed a course for CAP. Will hold off for now. f/u repeat -incentive spirometry # Acute hypoxemic respiratory failure: -Treat as noted above for covid-19 infection -supplemental oxygen with goal >90% -Incentive spirometry # +SIRS criteria c/f sepsis vs. dehydration in the setting of covid-19 PNA. -supportive treatment as noted above -s/p sepsis bolus will hold off more hydration and allow him to drink to thirst # hypotension: Now resolved. -Responded well to IV fluids. -Possibly from dehydration as he reports poor PO over the past several days while he is ill. # NIDDM with peripheral neuropathy: -ISS AC/HS -FSBG AC/HS -Hypoglycemic precautions. -Continue gabapentin. # Hypertension: -Restarted amlodipine 5mg QD and atenolol 25 QHS, will restart his ACEi now # Hypothyroidism: -continue Synthroid # Hyperlipidemia: -Continue simvastatin # History of gout: -Continue allopurinol # Depression: -Continue Prozac # Obesity: BMI 44. Complicates care # DVT prophylaxis: Lovenox BID Dispo: likely home today VS,Fishbone, I+O VS, Fishbone, I+O Laboratory Tests 10/06/20 06:20 Vital Signs Date Time Temp Pulse Resp B/P (MAP) Pulse Ox O2 Delivery O2 Flow Rate FiO2 10/06/20 08:19 65 141/81 10/06/20 08:00 97 Room Air 10/06/20 08:00 96.1 18 10/06/20 06:00 1.0 I&O- Last 24 Hours up to 6 AM 10/06/20 06:00 Intake Total 1560 ml Balance 1560 ml BETY ROUSSEAU MD October 06, 2020 09:05
--- NOTE | 2020-10-06 10:59 | DS.PDOC ---
Discharge Summary General Date of Admission October 04, 2020 at 15:09 Date of Discharge 10/06/2020 Attending Physician: BETY ROUSSEAU MD Discharge Summary PROCEDURES PERFORMED DURING STAY: None ADMITTING DIAGNOSES: Covid-19 PNA Acute hypoxemic respiratory failure 2/2 covid-19 DISCHARGE DIAGNOSES: Covid-19 PNA Acute hypoxemic respiratory failure 2/2 covid-19 Diabetes mellitus History of hypertension Hyperlipidemia Hypothyroidism Psoriasis Depression Gout COMPLICATIONS/CHIEF COMPLAINT: Acute Hypoxemic Respiratory Failure Due To Covid19. HISTORY OF PRESENT ILLNESS: 60-year-old M with a history of gar-fjpoueh-blkymgetb diabetes, hypertension, hyperlipidemia, hypothyroidism who was recently admitted for CAP with high suspicion for covid-19 infection though he tested negative twice and was discharged home on CAP antibiotics, who returned per the recommendation of his PCP when he presented reporting feeling unwell, weak, dizzy, with now worsening SOB and found to be hypotensive in clinic with hypoxemia and was sent to the ED where he was found be hypotensive to SBP low 90s and hypoxemic requiring 5L NC to saturate above 90s but otherwise afebrile. HOSPITAL COURSE: Workup was remarkable for WBC 9.6, Hgb 15.4, platelets 207, na 140, K 3.6, Cr 1.23, D-dimer 548, procalcitonin 0.23, EKG with NSR with nonspecific T wave abnormalities as previously noted, troponin 0.08, and mostly importantly was found to be covid-19 positive and CTA showed bilateral GGOs with the largest in the RUL, without evidence of PE or effusions. He was being admitted for covid-19 PNA with hypoxemic respiratory failure and SIRS criteria c/f sepsis vs. dehydration in the setting of covid-19 PNA. Having just completed a course of antibiotics and with a low-borderline procalcitonin I discussed his presentation with Dr. Portillo and did not start antibiotic therapy. Instead he received a dose of tocilizumab and was started on remdesevir and dexamethasone 6mg IV daily with rapid improvement in symptoms, and return to room air by day 3. His fevers resolved and is doing well at this time and will be discharged home with close PCP follow up. Of note, he did receive some fluids at presentation and BP meds were held in the setting of hypotension that was likely 2/2 poor PO in the set ting of illness and he has since recovered and his BP meds have been resumed. DISCHARGE MEDICATIONS: Please see below. ALLERGIES: Please see below. PHYSICAL EXAMINATION ON DISCHARGE: VITAL SIGNS: Please see below. Constitutional: Awake, alert, morbidly obese, in no apparent distress ENT: Anicteric, non injected. Mucosa is moist. Respiratory: Lungs diminished breath sounds bilaterally R>L. Cardiovascular: Regular rate and rhythm, no noted murmurs Gastrointestinal: Abdomen is soft, non distended, non tender, BS present. Musculoskeletal: No lower extremity edema. Neurologic: No focal neurological deficit. Mental Status: A&O x3, normal affect Skin: Multiple skin tags around the neck, psoriatic plaques around bilateral elbows LABORATORY DATA: Please see below. IMAGING: CTA: There is good opacification in the pulmonary arterial tree. There is no evidence of vessel cut off or filling defect to suggest pulmonary embolus. Homogeneous opacity is seen in the thoracic aorta. There is no evidence of aneurysm or dissection. Lung window settings demonstrate bilateral patchy infiltrates consistent with pneumonia. These are more extensive than they were on the study done 1 week ago. The largest infiltrate is in the right upper lobe but there are new patchy areas of ground-glass opacity in the left upper lobe, elsewhere in the right upper lobe, and in both lower lobes. No pleural effusion or pericardial effusion is seen. Central pulmonary arteries remain prominent unchanged. In the upper abdomen, no adrenal abnormality is seen. There is moderate fatty infiltration of the liver. IMPRESSION: No CT evidence of pulmonary embolus. Progressive pneumonia pattern. No pleural effusion seen. Fatty infiltration of the liver. Centrally prominent pulmonary CXR: The mediastinum and cardiac silhouette are stable and within normal limits for portable technique. Very subtle right upper lobe infiltrate is again suggested and possibly mildly improved. No new consolidation, effusion, or pneumothorax. Skeletal structures are intact. IMPRESSION: Subtle right upper lobe infiltrate appears mildly improved. PROGNOSIS: Good ACTIVITY: As tolerated DIET: consistent carb, 2g sodium DISCHARGE PLAN: Home with close PCP follow up. DISPOSITION: Home DISCHARGE INSTRUCTIONS: Home with albuterol PRN for cough and SOB, tessalon perles PRN for cough, ASA 81 daily for 30 days. To self isolate for 14 days until all symptoms have resolved. ITEMS TO FOLLOWUP ON ON OUTPATIENT: Resolution of covid-19 PNA Morbid obesity DISCHARGE CONDITION: Stable TIME SPENT ON DISCHARGE: 34 minutes. Vital Signs/I&Os Vital Signs Date Time Temp Pulse Resp B/P (MAP) Pulse Ox O2 Delivery O2 Flow Rate FiO2 10/06/20 08:19 65 141/81 10/06/20 08:00 97 Room Air 10/06/20 08:00 96.1 18 10/06/20 06:00 1.0 I&O- Last 24 Hours up to 6 AM 10/06/20 06:00 Intake Total 1560 ml Balance 1560 ml Laboratory Data Labs 24H Laboratory Tests 2 10/05/20 11:42: Bedside Glucose (Misc Panel) 250H 10/05/20 16:52: Bedside Glucose (Misc Panel) 237H 10/05/20 20:41: Bedside Glucose (Misc Panel) 174H 10/06/20 05:48: Bedside Glucose (Misc Panel) 177H 10/06/20 06:20: Immature Granulocyte % (Auto) 1.3, Neutrophils (%) (Auto) 76.0H, Lymphocytes (%) (Auto) 12.7L, Monocytes (%) (Auto) 9.8H, Eosinophils (%) (Auto) 0.0, Basophils (%) (Auto) 0.2, Neutrophils # (Auto) 4.0, Lymphocytes # (Auto) 0.7L, Monocytes # (Auto) 0.5, Eosinophils # (Auto) 0.0, Basophils # (Auto) 0.0, Nucleated Red Blood Cells % (auto) 0.0, Prothrombin Time 14.0, Prothromb Time International Ra jefferson 1.06, Activated Partial Thromboplast Time 31.1, Fibrinogen 471H, Anion Gap 6L, Glomerular Filtration Rate > 60.0, Calcium Level 8.3L, Magnesium Level 1.7L, Ferritin 332, Total Bilirubin 0.3, Direct Bilirubin 0.1, Aspartate Amino Transf (AST/SGOT) 19, Alanine Aminotransferase (ALT/SGPT) 36, Alkaline Phosphatase 77, Lactate Dehydrogenase 205, Total Creatine Kinase 49, Troponin I 0.07, NT-Pro-B-T ype Natriuretic Peptide 92, Total Protein 5.3L, Albumin 2.6L, Albumin/Globulin Ratio 1.0 CBC/BMP Laboratory Tests 10/06/20 06:20 FSBS Laboratory Tests Test 10/05/20 11:42 10/05/20 16:52 10/05/20 20:41 10/06/20 05:48 Range/Units Bedside Glucose (Misc Panel) 250 237 174 177 70-105 MG/DL Microbiology Microbiology 10/04/20 Blood Culture - Preliminary, Resulted No growth after 24 hours . All specim... 10/04/20 Respiratory Virus Panel (PCR) (JOEY) - Final, Complete SARS-CoV-2 (COVID 19) 10/04/20 Blood Culture - Preliminary, Resulted No growth after 24 hours . All specim... Discharge Medications Scheduled Allopurinol (Zyloprim) 300 Mg Tablet, 300 MG PO DAILY, (Reported) Amlodipine Besylate (Amlodipine Besylate) 10 Mg Tablet, 5 MG PO DAILY, (Reported) Aspirin (Aspirin EC) 81 Mg Tablet.dr, 81 MG PO DAILY Atenolol (Atenolol) 25 Mg Tab, 25 MG PO QHS, (Reported) Benzonatate (Tessalon Perle) 100 Mg Capsule, 1 CAP PO TID for cough Cyclobenzaprine HCl (Cyclobenzaprine HCl) 10 Mg Tab, 20 MG PO QHS, (Reported) Doxycycline Hyclate (Doxycycline Hyclate) 100 Mg Tablet.dr, 100 MG PO BID, (Reported) started 09/30/20 for 7 days Dulaglutide (Trulicity) 0.75 Mg/0.5 Ml Pen.injctr, 0.75 MG SQ QWEEK, (Reported) THURSDAYS Fluoxetine Hcl (Fluoxetine HCl) 20 Mg Cap, 40 MG PO DAILY, (Reported) Gabapentin (Gabapentin) 600 Mg Tablet, 1,200 MG PO QHS, (Reported) Levothyroxine Sodium (Levoxyl) 112 Mcg Tablet, 112 MCG PO DAILY, (Reported) Lisinopril (Lisinopril) 40 Mg Tab, 40 MG PO QHS, (Reported) Metformin HCl (Metformin HCl ER) 750 Mg Tab.er.24h, 750 MG PO BID, (Reported) Simvastatin (Simvastatin) 20 Mg Tab, 20 MG PO QHS, (Reported) Scheduled PRN Albuterol Sulfate (Ventolin Hfa) 18 Gm Hfa.aer.ad, 2 PUFF INH Q4HP PRN for SHORTNESS OF BREATH Aspirin/Acetaminophen/Caffeine (Excedrin Migraine Caplet) 1 Each Tablet, 2 TAB PO BID PRN for HEADACHE, (Reported) Cyclobenzaprine HCl (Cyclobenzaprine HCl) 10 Mg Tablet, 10 MG PO DAILY PRN for MUSCLE SPASMS, (Reported) Allergies Coded Allergies: Quinolones (Verified Adverse Reaction, Mild, NAUSEA, 09/27/20) Sulfa (Sulfonamide Antibiotics) (Verified Adverse Reaction, Mild, VERTIGO, 09/27/20) hydrochlorothiazide (Verified Adverse Reaction, Mild, VERTIGO, 09/27/20) BETY ROSUSEAU MD October 06, 2020 09:25
== END 2020-10-06 11:15 | disposition home or self-care (01) | DRG 177 ==
LOC: M ED 10:09 → M ED INP 15:09 → M 4MAIN 19:00
PROVIDERS: ADMIT Internal Medicine; ATTEND Internal Medicine
PROC: XW033E5 Introduction of Remdesivir Anti-infective into Peripheral Vein, Percutaneous Approach, New Technology Group 5 (ICD-10-PCS; principal; 2020-10-04)
PROC: 3E0333Z Introduction of Anti-inflammatory into Peripheral Vein, Percutaneous Approach (ICD-10-PCS; 2020-10-04)
DX: U07.1 COVID-19 (principal); J12.82 Pneumonia due to coronavirus disease 2019; J96.01 Acute respiratory failure with hypoxia; Z68.41 Body mass index [BMI] 40.0-44.9, adult; E11.42 Type 2 diabetes mellitus with diabetic polyneuropathy; I10 Essential (primary) hypertension; E78.5 Hyperlipidemia, unspecified; E03.9 Hypothyroidism, unspecified; E86.0 Dehydration; I95.9 Hypotension, unspecified; M10.9 Gout, unspecified; F32.9 Major depressive disorder, single episode, unspecified; E66.01 Morbid (severe) obesity due to excess calories; Z79.84 Long term (current) use of oral hypoglycemic drugs; Z79.899 Other long term (current) drug therapy; Z88.1 Allergy status to other antibiotic agents; Z88.2 Allergy status to sulfonamides; Z88.8 Allergy status to other drugs, medicaments and biological substances

== ENCOUNTER → 2020-12-06 | Outpatient (CLI) | payer MEDICARE, OTHER, MEDICAID ==
[~2020-12-06] MED LIST changes: +ASPI-551 PO; +CEFD1CAP8 PO; +DOXY-259 PO; +TESS100C PO; +VENTAER INH
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
== END ==
LOC: M RAD 16:32
PROVIDERS: ATTEND Physician Assistant
DX: M47.812 Spondylosis without myelopathy or radiculopathy, cervical region (principal); S09.90XA Unspecified injury of head, initial encounter; G44.319 Acute post-traumatic headache, not intractable; V89.2XXA Person injured in unspecified motor-vehicle accident, traffic, initial encounter; Y92.9 Unspecified place or not applicable; Y99.9 Unspecified external cause status
CPT/HCPCS: 70450; 72125; G0463

== ENCOUNTER → 2021-02-28 | Outpatient (CLI) | payer MEDICARE, OTHER | LOC: M LABSMTC 11:31 | PROVIDERS: ATTEND Pediatrics | DX: Z20.822 Contact with and (suspected) exposure to COVID-19 (principal) | CPT/HCPCS: C9803; U0003 ==

== ENCOUNTER → 2021-03-28 | Outpatient (CLI) | payer MEDICARE, OTHER ==
--- NOTE | 2021-03-28 13:08 | REP ---
INDICATION: LT FACIAL CHEEK MASS ? CYST VS MASS COMPARISON: None. TECHNIQUE: Dyer scale and color evaluation using the linear high frequency transducer. FINDINGS: Directed ultrasound examination overlying the palpable mass in the left cheek demonstrates mildly prominent parotid gland including small 11 x 8 x 8 mm hypoechoic focus at the tail which is otherwise nonspecific. Color evaluation demonstrates no significant increased vascularity. No abnormal fluid. IMPRESSION: Nonspecific small hypoechoic area at the parotid tail. If necessary consider contrast-enhanced CT for further investigation. <Electronically signed by Gabe Hoffman > 03/28/21 [id number]
== END ==
LOC: M RAD 12:10
PROVIDERS: ATTEND Physician Assistant
DX: R79.89 Other specified abnormal findings of blood chemistry (principal)

== ENCOUNTER → 2021-04-28 | Outpatient (CLI) | payer MEDICARE, OTHER ==
[~2021-04-28] MED LIST changes: -CEFD1CAP8 PO; +CEFD300C41 PO
[2021-04-28 14:09] LABS: HEMOGLOBIN A1c 6.5 %
[2021-04-28 14:26] LABS: ALBUMIN 3.6 GM/DL (3.2-5.2); ALT/SGPT 31 U/L (12-78); BILIRUBIN,TOTAL 0.7 MG/DL (0.2-1.0); BLOOD UREA NITROGEN 14 MG/DL (7-18); CARBON DIOXIDE LEVEL 34 MEQ/L (21-32); CHLORIDE LEVEL 103 MEQ/L (98-107); CREATININE FOR GFR 0.86 MG/DL (0.70-1.30); FREE T4 1.13 NG/DL (0.76-1.46); GLOMERULAR FILTRATION RATE > 60.0 (>56); GLUCOSE, FASTING 148 MG/DL (70-100); POTASSIUM SERUM 4.2 MEQ/L (3.5-5.1); SODIUM LEVEL 140 MEQ/L (136-145); TOTAL PROTEIN 7.2 GM/DL (6.4-8.2)
[2021-05-01 00:07] LABS: INSULIN LEVEL 21.1 uIU/mL (2.6-24.9)
== END ==
LOC: M PLAIMG 09:16
PROVIDERS: ATTEND Family Medicine
DX: G44.86 Cervicogenic headache (principal); Z12.5 Encounter for screening for malignant neoplasm of prostate; D50.9 Iron deficiency anemia, unspecified; E07.9 Disorder of thyroid, unspecified
CPT/HCPCS: 36415; 72052; 80053; 82105; 82172; 83010; 83036; 83525; 83883; 84439; 84443; G0103

== ENCOUNTER → 2021-05-22 | Outpatient (CLI) | payer MEDICARE, OTHER | LOC: M LABSMTC 12:47 | PROVIDERS: ATTEND Pediatrics | DX: Z11.52 Encounter for screening for COVID-19 (principal) ==

== ENCOUNTER 2021-11-01 11:23 | Emergency (ER) | payer OTHER ==
[~2021-11-01] VITALS: Ht 190.5 cm; Wt 159.1 kg
[~2021-11-01 11:23] MED LIST changes: +CYMB1CAP4 PO; +EXCETAB32 PO; -EXCETAB33 PO
[2021-11-01 12:00] LABS: BASO % 0.2 % (0.0-1.0); EOS % 0.2 % (0.0-3.0); HEMATOCRIT 42.3 % (42.0-52.0); HEMOGLOBIN 13.8 g/dl (13.5-17.5); LYMPH # 1.4 10^3/uL (1.5-5.0); LYMPH % 7.8 % (24.0-44.0); MEAN CORPUSCULAR HEMOGLOBIN 29.7 pg (27.0-33.0); MEAN CORPUSCULAR HGB CONC 32.6 g/dl (32.0-36.5); MEAN CORPUSCULAR VOLUME 91.2 fl (80.0-96.0); MONO % 10.8 % (2.0-8.0); NEUTROPHILS # 14.1 10^3/uL (1.5-8.5); NEUTROPHILS % 80.2 % (36.0-66.0); PLATELET COUNT, AUTOMATED 310 10^3/uL (150-450); RED BLOOD COUNT 4.64 10^6/uL (4.30-6.10); WHITE BLOOD COUNT 17.5 10^3/uL (4.0-10.0)
[2021-11-01 12:19] LABS: ERYTHROCYTE SEDIMENTATION RATE 63 mm/hr (0-20)
[2021-11-01] MEDS ORDERED: MORPHINE 4 MG/ML 1ML VIAL/SYRINGE IV ONE (12:20)
[2021-11-01] MEDS ORDERED: NS 1,000 ML IV ONE (12:20)
[2021-11-01] MEDS ORDERED: ONDANSETRON 4MG/2ML VIAL As Ordered ONE (12:22)
[2021-11-01 12:24] LABS: MONO # 1.9 10^3/uL (0.0-0.8)
[2021-11-01] MEDS ORDERED: ONDANSETRON 4MG/2ML VIAL IV ONE (12:40)
[2021-11-01] MEDS ORDERED: LIDOCAINE W/EPINEPHRINE 1% 20ML VIAL SC ONE (13:05)
[2021-11-01] MEDS ORDERED: CLINDAMYCIN 900 MG in IV 1 EA IV ONE (13:45)
[2021-11-01] MEDS ORDERED: CLEO300C2 PO (13:48)
[2021-11-01 15:13] VITALS: BP 105/53
[2021-11-01] MEDS ORDERED: CLINDAMYCIN 150MG CAPSULE PO ONE (15:15)
== END 2021-11-01 15:25 | disposition home or self-care (01) ==
LOC: M ED 11:23
DX: L02.612 Cutaneous abscess of left foot (principal); L03.116 Cellulitis of left lower limb; Z88.0 Allergy status to penicillin; Z88.1 Allergy status to other antibiotic agents; Z88.2 Allergy status to sulfonamides; Z88.8 Allergy status to other drugs, medicaments and biological substances
CPT/HCPCS: 10060; 36415; 76882; 80047; 85025; 85652; 86140; 87040; 87070; 87077; 87186; 87205; 96361; 96365; 96375; 99284; J2270; J2405

== ENCOUNTER → 2021-11-03 | Outpatient (CLI) | payer OTHER, MEDICARE ==
[~2021-11-03] MED LIST changes: +CLEO300C2 PO
[2021-11-03 15:59] LABS: BASO % 0.2 % (0.0-1.0); EOS # 0.1 10^3/uL (0.0-0.5); EOS % 0.9 % (0.0-3.0); HEMATOCRIT 40.2 % (42.0-52.0); HEMOGLOBIN 12.8 g/dl (13.5-17.5); LYMPH # 1.3 10^3/uL (1.5-5.0); LYMPH % 10.4 % (24.0-44.0); MEAN CORPUSCULAR HEMOGLOBIN 30.1 pg (27.0-33.0); MEAN CORPUSCULAR HGB CONC 31.8 g/dl (32.0-36.5); MEAN CORPUSCULAR VOLUME 94.6 fl (80.0-96.0); MONO # 1.1 10^3/uL (0.0-0.8); MONO % 8.8 % (2.0-8.0); NEUTROPHILS # 9.5 10^3/uL (1.5-8.5); NEUTROPHILS % 78.8 % (36.0-66.0); PLATELET COUNT, AUTOMATED 311 10^3/uL (150-450); RED BLOOD COUNT 4.25 10^6/uL (4.30-6.10); WHITE BLOOD COUNT 12.1 10^3/uL (4.0-10.0)
== END ==
LOC: M PLALAB 12:31
PROVIDERS: ATTEND Physician Assistant Medical
DX: L02.612 Cutaneous abscess of left foot (principal)

== ENCOUNTER 2021-11-07 13:19 | Inpatient (IN) | payer MEDICARE, OTHER ==
[~2021-11-07] VITALS: Ht 190.5 cm; Wt 155.5 kg
[2021-11-07 16:08] LABS: BASO % 0.3 % (0.0-1.0); EOS # 0.1 10^3/uL (0.0-0.5); EOS % 0.8 % (0.0-3.0); HEMATOCRIT 40.2 % (42.0-52.0); HEMOGLOBIN 12.8 g/dl (13.5-17.5); LYMPH # 1.3 10^3/uL (1.5-5.0); LYMPH % 11.9 % (24.0-44.0); MEAN CORPUSCULAR HEMOGLOBIN 29.2 pg (27.0-33.0); MEAN CORPUSCULAR HGB CONC 31.8 g/dl (32.0-36.5); MEAN CORPUSCULAR VOLUME 91.8 fl (80.0-96.0); MONO % 9.1 % (2.0-8.0); NEUTROPHILS # 8.5 10^3/uL (1.5-8.5); NEUTROPHILS % 76.4 % (36.0-66.0); PLATELET COUNT, AUTOMATED 401 10^3/uL (150-450); RED BLOOD COUNT 4.38 10^6/uL (4.30-6.10); WHITE BLOOD COUNT 11.1 10^3/uL (4.0-10.0)
[2021-11-07] MEDS ORDERED: MORPHINE 4 MG/ML 1ML VIAL/SYRINGE IV ONE (16:30)
[2021-11-07] MEDS ORDERED: NS 1,000 ML IV ONE (16:30)
[2021-11-07 16:44] LABS: BLOOD UREA NITROGEN 15 MG/DL (7-18); CALCIUM LEVEL 9.1 MG/DL (8.5-10.1); CARBON DIOXIDE LEVEL 33 MEQ/L (21-32); CHLORIDE LEVEL 102 MEQ/L (98-107); CREATININE FOR GFR 1.06 MG/DL (0.70-1.30); GLOMERULAR FILTRATION RATE > 60.0 (>56); GLUCOSE, FASTING 136 MG/DL (70-100); POTASSIUM SERUM 4.1 MEQ/L (3.5-5.1); SODIUM LEVEL 139 MEQ/L (136-145)
[2021-11-07 16:48] LABS: ERYTHROCYTE SEDIMENTATION RATE > 140 mm/hr (0-20)
[2021-11-07 18:22] LABS: RSV AMPLIFICATION NEGATIVE (NEGATIVE)
[2021-11-07] MEDS ORDERED: ALLO300T2 PO (18:43)
[2021-11-07] MEDS ORDERED: GABA800T4 PO ×2 (18:43)
[2021-11-07] MEDS ORDERED: TRUL0.5I SC (18:43)
[2021-11-07] MEDS ORDERED: HOME MED LIST COMPLETE! XX SCH (18:45)
[2021-11-07] MEDS ORDERED: DEXTROSE 50% 50 ML SYRINGE IV PRN (19:25)
[2021-11-07] MEDS ORDERED: GLUCAGON INJ 1MG VIAL SC PRN (19:25)
[2021-11-07] MEDS ORDERED: VANCOMYCIN HCL 1,000 MG, VIAL MATE ADAPTER 1 EACH in NS 250 ML IV SCH (19:25)
[2021-11-07] MEDS ORDERED: GLUCOSE 4GM CHEW TABLET PO PRN (19:25)
[2021-11-07] MEDS: PIPERACILLIN/TAZOBACTAM SOD 3.375 GM in D5W MINI-BAG PLUS 50 ML IV SCH (20:00)
[2021-11-07] MEDS: DOCUSATE SODIUM 100MG CAPSULE PO SCH (21:00)
[2021-11-07] MEDS ORDERED: VANCOMYCIN HCL 1,000 MG, VIAL MATE ADAPTER 1 EACH in NS 250 ML IV ONE ×2 (21:00→22:00)
[2021-11-07] MEDS: GABAPENTIN 400MG CAP PO SCH (21:00)
[2021-11-07] MEDS: INSULIN LISPRO (NovoLOG) PER UNIT SC SCH (21:00)
[2021-11-07] MEDS: DULoxetine 20 MG CAP (CYMBALTA) PO SCH (21:00)
[2021-11-07] MEDS: CYCLOBENZAPRINE 10MG TABLET PO SCH (21:00)
[2021-11-07] MEDS: SIMVASTATIN 20 MG TAB PO SCH (21:00)
[2021-11-07] MEDS: PERCOCET 5MG/325MG TAB PO PRN (22:24)
[2021-11-07 23:13] VITALS: BP 175/99
[2021-11-08] MEDS: PIPERACILLIN/TAZOBACTAM SOD 3.375 GM in D5W MINI-BAG PLUS 50 ML IV SCH ×4 (02:50→19:25)
[2021-11-08] MEDS: LEVOTHYROXINE 112MCG TABLET (0.112MG) PO SCH (05:07)
[2021-11-08 05:22] VITALS: BP 210/110
[2021-11-08] MEDS ORDERED: **hydrALAZINE** 10 MG TAB PO PRN (05:35)
[2021-11-08] MEDS: PERCOCET 5MG/325MG TAB PO PRN ×3 (05:45→23:53)
[2021-11-08] MEDS: lisinopriL 40MG TAB PO SCH ×2 (05:55→20:46)
[2021-11-08 06:31] LABS: BASO % 0.2 % (0.0-1.0); EOS # 0.1 10^3/uL (0.0-0.5); EOS % 1.2 % (0.0-3.0); HEMATOCRIT 36.2 % (42.0-52.0); HEMOGLOBIN 11.5 g/dl (13.5-17.5); LYMPH # 1.3 10^3/uL (1.5-5.0); LYMPH % 13.7 % (24.0-44.0); MEAN CORPUSCULAR HGB CONC 31.8 g/dl (32.0-36.5); MEAN CORPUSCULAR VOLUME 91.2 fl (80.0-96.0); MONO % 9.9 % (2.0-8.0); NEUTROPHILS # 7.1 10^3/uL (1.5-8.5); NEUTROPHILS % 74.2 % (36.0-66.0); PLATELET COUNT, AUTOMATED 351 10^3/uL (150-450); RED BLOOD COUNT 3.97 10^6/uL (4.30-6.10); WHITE BLOOD COUNT 9.6 10^3/uL (4.0-10.0)
[2021-11-08 06:54] LABS: BLOOD UREA NITROGEN 14 MG/DL (7-18); CALCIUM LEVEL 8.9 MG/DL (8.5-10.1); CARBON DIOXIDE LEVEL 28 MEQ/L (21-32); CHLORIDE LEVEL 106 MEQ/L (98-107); GLOMERULAR FILTRATION RATE > 60.0 (>56); GLUCOSE, FASTING 136 MG/DL (70-100); SODIUM LEVEL 141 MEQ/L (136-145)
[2021-11-08] MEDS: INSULIN LISPRO (NovoLOG) PER UNIT SC SCH ×4 (07:30→20:29)
[2021-11-08] MEDS: allopurinoL 300 MG TAB PO SCH (08:22)
[2021-11-08] MEDS: FLUoxetine 20MG CAP PO SCH (08:24)
[2021-11-08] MEDS: GABAPENTIN 400MG CAP PO SCH ×3 (08:24→20:46)
[2021-11-08] MEDS: DOCUSATE SODIUM 100MG CAPSULE PO SCH ×2 (08:24→20:44)
[2021-11-08] MEDS: **hydrALAZINE HCL** 25 MG TAB PO SCH ×4 (08:24→23:53)
[2021-11-08] MEDS: DULoxetine 20 MG CAP (CYMBALTA) PO SCH ×2 (08:25→20:46)
[2021-11-08] MEDS ORDERED: LIDOCAINE 1% MDV 20ML VIAL IM ONE (08:50)
[2021-11-08] MEDS ORDERED: amLODIPine 5 MG TAB PO SCH (09:00)
[2021-11-08] MEDS: VANCOMYCIN HCL 750 MG, VIAL MATE ADAPTER 1 EACH in NS 250 ML IV SCH ×2 (10:23→21:20)
[2021-11-08] MEDS: VANCOMYCIN HCL 500 MG in D5W MINI-BAG PLUS 100 ML IV SCH ×2 (11:51→22:29)
[2021-11-08 14:00] VITALS: BP 147/67
[2021-11-08 17:20] VITALS: BP 156/96
[2021-11-08] MEDS: SIMVASTATIN 20 MG TAB PO SCH (20:46)
[2021-11-08] MEDS: CYCLOBENZAPRINE 10MG TABLET PO SCH (20:46)
[2021-11-08] MEDS: ENOXAPARIN 40MG/0.4ML SYRINGE (J1650 PER 10MG) SC SCH (20:47)
[2021-11-08 22:00] VITALS: BP 168/100
[2021-11-08 23:53] VITALS: BP 200/110
[2021-11-08] MEDS ORDERED: cloNIDine 0.1MG TABLET PO PRN (23:55)
[2021-11-09] VITALS (9 sets, daily range): BP systolic 137–186; BP diastolic 73–120
[2021-11-09] MEDS: PIPERACILLIN/TAZOBACTAM SOD 3.375 GM in D5W MINI-BAG PLUS 50 ML IV SCH ×4 (01:15→20:14)
[2021-11-09] MEDS: atenoloL 25 MG TAB PO SCH (02:49)
[2021-11-09] MEDS ORDERED: LABETALOL 100MG/20ML VIAL IV STA ×2 (03:59→05:21)
[2021-11-09] MEDS: **hydrALAZINE HCL** 25 MG TAB PO SCH ×4 (05:22→18:00)
[2021-11-09] MEDS: ACETAMINOPHEN TAB 650MG DOSE (2X325MG) PO PRN (05:32)
[2021-11-09] MEDS ORDERED: hydrALAZINE 20MG/ML 1ML VIAL (J0360 PER 20MG) IV ONE (06:00)
[2021-11-09] MEDS: LEVOTHYROXINE 112MCG TABLET (0.112MG) PO SCH (06:08)
[2021-11-09 06:16] LABS: BASO % 0.2 % (0.0-1.0); EOS # 0.1 10^3/uL (0.0-0.5); EOS % 1.4 % (0.0-3.0); HEMATOCRIT 35.1 % (42.0-52.0); HEMOGLOBIN 11.1 g/dl (13.5-17.5); LYMPH # 1.2 10^3/uL (1.5-5.0); LYMPH % 13.4 % (24.0-44.0); MEAN CORPUSCULAR HEMOGLOBIN 28.9 pg (27.0-33.0); MEAN CORPUSCULAR HGB CONC 31.6 g/dl (32.0-36.5); MEAN CORPUSCULAR VOLUME 91.4 fl (80.0-96.0); MONO # 0.9 10^3/uL (0.0-0.8); MONO % 9.4 % (2.0-8.0); NEUTROPHILS # 6.8 10^3/uL (1.5-8.5); NEUTROPHILS % 74.8 % (36.0-66.0); PLATELET COUNT, AUTOMATED 341 10^3/uL (150-450); RED BLOOD COUNT 3.84 10^6/uL (4.30-6.10); WHITE BLOOD COUNT 9.1 10^3/uL (4.0-10.0)
[2021-11-09] MEDS: PERCOCET 5MG/325MG TAB PO PRN ×2 (06:24→15:09)
[2021-11-09 06:50] LABS: BLOOD UREA NITROGEN 11 MG/DL (7-18); CALCIUM LEVEL 8.3 MG/DL (8.5-10.1); CARBON DIOXIDE LEVEL 32 MEQ/L (21-32); CHLORIDE LEVEL 105 MEQ/L (98-107); GLOMERULAR FILTRATION RATE > 60.0 (>56); GLUCOSE, FASTING 140 MG/DL (70-100); NT-PRO BNP 225 PG/ML (<125); POTASSIUM SERUM 3.7 MEQ/L (3.5-5.1); SODIUM LEVEL 140 MEQ/L (136-145)
[2021-11-09] MEDS: ENOXAPARIN 40MG/0.4ML SYRINGE (J1650 PER 10MG) SC SCH ×2 (08:33→20:14)
[2021-11-09] MEDS: allopurinoL 300 MG TAB PO SCH (08:34)
[2021-11-09] MEDS: GABAPENTIN 400MG CAP PO SCH ×3 (08:34→20:14)
[2021-11-09] MEDS: DOCUSATE SODIUM 100MG CAPSULE PO SCH ×2 (08:34→20:14)
[2021-11-09] MEDS: FLUoxetine 20MG CAP PO SCH (08:34)
[2021-11-09] MEDS: INSULIN LISPRO (NovoLOG) PER UNIT SC SCH ×4 (08:34→20:15)
[2021-11-09] MEDS: DULoxetine 20 MG CAP (CYMBALTA) PO SCH ×2 (08:35→20:14)
[2021-11-09] MEDS: VANCOMYCIN HCL 500 MG in D5W MINI-BAG PLUS 100 ML IV SCH ×2 (10:00→22:48)
[2021-11-09] MEDS: VANCOMYCIN HCL 750 MG, VIAL MATE ADAPTER 1 EACH in NS 250 ML IV SCH ×2 (10:12→21:36)
[2021-11-09] MEDS: lisinopriL 40MG TAB PO SCH (20:14)
[2021-11-09] MEDS: SIMVASTATIN 20 MG TAB PO SCH (20:14)
[2021-11-09] MEDS: CYCLOBENZAPRINE 10MG TABLET PO SCH (20:14)
[2021-11-09] MEDS ORDERED: VANCOMYCIN HCL 750 MG, VIAL MATE ADAPTER 1 EACH in NS 250 ML IV SCH (22:00)
[2021-11-10] VITALS (11 sets, daily range): BP systolic 136–175; BP diastolic 70–96
[2021-11-10] MEDS: **hydrALAZINE HCL** 25 MG TAB PO SCH ×4 (00:01→17:10)
[2021-11-10] MEDS: PIPERACILLIN/TAZOBACTAM SOD 3.375 GM in D5W MINI-BAG PLUS 50 ML IV SCH ×4 (01:48→19:46)
[2021-11-10] MEDS: ACETAMINOPHEN TAB 650MG DOSE (2X325MG) PO PRN (03:24)
[2021-11-10] MEDS: LEVOTHYROXINE 112MCG TABLET (0.112MG) PO SCH (05:25)
[2021-11-10] MEDS: ENOXAPARIN 40MG/0.4ML SYRINGE (J1650 PER 10MG) SC SCH ×2 (07:56→21:41)
[2021-11-10] MEDS: INSULIN LISPRO (NovoLOG) PER UNIT SC SCH ×4 (07:57→20:34)
[2021-11-10] MEDS: DOCUSATE SODIUM 100MG CAPSULE PO SCH ×2 (07:57→21:41)
[2021-11-10] MEDS: DULoxetine 20 MG CAP (CYMBALTA) PO SCH ×2 (07:59→21:41)
[2021-11-10] MEDS: atenoloL 25 MG TAB PO SCH (07:59)
[2021-11-10] MEDS: GABAPENTIN 400MG CAP PO SCH ×3 (07:59→21:40)
[2021-11-10] MEDS: FLUoxetine 20MG CAP PO SCH (08:00)
[2021-11-10] MEDS: PERCOCET 5MG/325MG TAB PO PRN ×3 (08:00→19:46)
[2021-11-10] MEDS: allopurinoL 300 MG TAB PO SCH (08:01)
[2021-11-10 08:07] LABS: BASO % 0.4 % (0.0-1.0); EOS # 0.1 10^3/uL (0.0-0.5); EOS % 1.8 % (0.0-3.0); HEMATOCRIT 33.8 % (42.0-52.0); HEMOGLOBIN 10.8 g/dl (13.5-17.5); LYMPH # 1.3 10^3/uL (1.5-5.0); LYMPH % 16.5 % (24.0-44.0); MEAN CORPUSCULAR HEMOGLOBIN 29.2 pg (27.0-33.0); MEAN CORPUSCULAR VOLUME 91.4 fl (80.0-96.0); MONO # 0.7 10^3/uL (0.0-0.8); MONO % 9.2 % (2.0-8.0); NEUTROPHILS # 5.5 10^3/uL (1.5-8.5); NEUTROPHILS % 71.4 % (36.0-66.0); PLATELET COUNT, AUTOMATED 344 10^3/uL (150-450); WHITE BLOOD COUNT 7.6 10^3/uL (4.0-10.0)
[2021-11-10 08:33] LABS: BLOOD UREA NITROGEN 11 MG/DL (7-18); CALCIUM LEVEL 9.1 MG/DL (8.5-10.1); CARBON DIOXIDE LEVEL 31 MEQ/L (21-32); CHLORIDE LEVEL 107 MEQ/L (98-107); CREATININE FOR GFR 0.96 MG/DL (0.70-1.30); GLOMERULAR FILTRATION RATE > 60.0 (>56); GLUCOSE, FASTING 145 MG/DL (70-100); POTASSIUM SERUM 4.1 MEQ/L (3.5-5.1); SODIUM LEVEL 142 MEQ/L (136-145)
[2021-11-10] MEDS: VANCOMYCIN HCL 750 MG, VIAL MATE ADAPTER 1 EACH in NS 250 ML IV SCH ×2 (09:17→21:40)
[2021-11-10] MEDS: VANCOMYCIN HCL 500 MG in D5W MINI-BAG PLUS 100 ML IV SCH ×2 (10:32→21:39)
[2021-11-10] MEDS: CYCLOBENZAPRINE 10MG TABLET PO SCH (21:40)
[2021-11-10] MEDS: SIMVASTATIN 20 MG TAB PO SCH (21:41)
[2021-11-10] MEDS: lisinopriL 40MG TAB PO SCH (21:41)
[2021-11-11] MEDS: **hydrALAZINE HCL** 25 MG TAB PO SCH ×2 (00:17→06:26)
[2021-11-11] MEDS: PIPERACILLIN/TAZOBACTAM SOD 3.375 GM in D5W MINI-BAG PLUS 50 ML IV SCH ×2 (02:08→08:13)
[2021-11-11] MEDS: ACETAMINOPHEN TAB 650MG DOSE (2X325MG) PO PRN ×2 (03:05→10:42)
[2021-11-11 05:47] LABS: BASO % 0.3 % (0.0-1.0); EOS # 0.1 10^3/uL (0.0-0.5); EOS % 1.8 % (0.0-3.0); HEMATOCRIT 34.6 % (42.0-52.0); LYMPH # 1.2 10^3/uL (1.5-5.0); LYMPH % 15.4 % (24.0-44.0); MEAN CORPUSCULAR HEMOGLOBIN 28.8 pg (27.0-33.0); MEAN CORPUSCULAR HGB CONC 31.8 g/dl (32.0-36.5); MEAN CORPUSCULAR VOLUME 90.6 fl (80.0-96.0); MONO # 0.7 10^3/uL (0.0-0.8); NEUTROPHILS # 5.8 10^3/uL (1.5-8.5); NEUTROPHILS % 72.9 % (36.0-66.0); PLATELET COUNT, AUTOMATED 362 10^3/uL (150-450); RED BLOOD COUNT 3.82 10^6/uL (4.30-6.10); WHITE BLOOD COUNT 7.9 10^3/uL (4.0-10.0)
[2021-11-11 06:00] VITALS: BP 178/109
[2021-11-11 06:09] LABS: BLOOD UREA NITROGEN 9 MG/DL (7-18); C REACTIVE PROTEIN QUANTITATIV 9.02 MG/DL (0.00-0.30); CALCIUM LEVEL 8.8 MG/DL (8.5-10.1); CARBON DIOXIDE LEVEL 28 MEQ/L (21-32); CHLORIDE LEVEL 107 MEQ/L (98-107); CREATININE FOR GFR 0.81 MG/DL (0.70-1.30); GLOMERULAR FILTRATION RATE > 60.0 (>56); GLUCOSE, FASTING 131 MG/DL (70-100); POTASSIUM SERUM 3.5 MEQ/L (3.5-5.1); SODIUM LEVEL 142 MEQ/L (136-145)
[2021-11-11] MEDS: LEVOTHYROXINE 112MCG TABLET (0.112MG) PO SCH (06:27)
[2021-11-11 06:56] VITALS: BP 182/110
[2021-11-11] MEDS ORDERED: **hydrALAZINE HCL** 25 MG TAB PO ONE (07:20)
[2021-11-11] MEDS: DOCUSATE SODIUM 100MG CAPSULE PO SCH ×2 (08:11→20:42)
[2021-11-11] MEDS: GABAPENTIN 400MG CAP PO SCH ×3 (08:11→20:42)
[2021-11-11] MEDS: FLUoxetine 20MG CAP PO SCH (08:11)
[2021-11-11] MEDS: atenoloL 25 MG TAB PO SCH ×2 (08:12→20:47)
[2021-11-11] MEDS: DULoxetine 20 MG CAP (CYMBALTA) PO SCH ×2 (08:12→20:47)
[2021-11-11] MEDS: allopurinoL 300 MG TAB PO SCH (08:12)
[2021-11-11] MEDS: INSULIN LISPRO (NovoLOG) PER UNIT SC SCH ×4 (08:13→21:00)
[2021-11-11] MEDS: ENOXAPARIN 40MG/0.4ML SYRINGE (J1650 PER 10MG) SC SCH ×2 (08:16→20:47)
[2021-11-11] MEDS: VANCOMYCIN HCL 750 MG, VIAL MATE ADAPTER 1 EACH in NS 250 ML IV SCH ×2 (09:16→20:47)
[2021-11-11] MEDS: VANCOMYCIN HCL 500 MG in D5W MINI-BAG PLUS 100 ML IV SCH ×2 (11:17→23:13)
[2021-11-11] MEDS ORDERED: **hydrALAZINE** 50 MG TAB PO SCH (12:00)
[2021-11-11] MEDS ORDERED: CLEO300C2 PO (12:52)
[2021-11-11] MEDS ORDERED: ATEN50TA2 PO (12:52)
[2021-11-11] MEDS ORDERED: PERCOCET PO (12:52)
[2021-11-11] MEDS ORDERED: ACID100C PO (12:56)
[2021-11-11 13:00] VITALS: BP 130/80
[2021-11-11 14:00] VITALS: BP 158/101
[2021-11-11] MEDS: **hydrALAZINE** 50 MG TAB PO SCH ×2 (16:22→20:46)
[2021-11-11] MEDS: PERCOCET 5MG/325MG TAB PO PRN (16:26)
[2021-11-11] MEDS ORDERED: **hydrALAZINE HCL** 25 MG TAB PO PRN (18:00)
[2021-11-11] MEDS: CYCLOBENZAPRINE 10MG TABLET PO SCH (20:42)
[2021-11-11] MEDS: lisinopriL 40MG TAB PO SCH (20:42)
[2021-11-11] MEDS: SIMVASTATIN 20 MG TAB PO SCH (20:46)
[2021-11-11 22:00] VITALS: BP 135/76
[2021-11-12] MEDS: LEVOTHYROXINE 112MCG TABLET (0.112MG) PO SCH (05:46)
[2021-11-12 06:00] VITALS: BP 173/92
[2021-11-12 06:00] LABS: BASO % 0.2 % (0.0-1.0); EOS # 0.1 10^3/uL (0.0-0.5); EOS % 1.2 % (0.0-3.0); HEMATOCRIT 36.5 % (42.0-52.0); HEMOGLOBIN 11.7 g/dl (13.5-17.5); LYMPH # 1.3 10^3/uL (1.5-5.0); LYMPH % 14.2 % (24.0-44.0); MEAN CORPUSCULAR HEMOGLOBIN 28.9 pg (27.0-33.0); MEAN CORPUSCULAR HGB CONC 32.1 g/dl (32.0-36.5); MEAN CORPUSCULAR VOLUME 90.1 fl (80.0-96.0); MONO # 0.7 10^3/uL (0.0-0.8); MONO % 8.1 % (2.0-8.0); NEUTROPHILS # 6.8 10^3/uL (1.5-8.5); NEUTROPHILS % 75.7 % (36.0-66.0); PLATELET COUNT, AUTOMATED 384 10^3/uL (150-450); RED BLOOD COUNT 4.05 10^6/uL (4.30-6.10)
[2021-11-12 06:24] LABS: BLOOD UREA NITROGEN 10 MG/DL (7-18); CALCIUM LEVEL 8.6 MG/DL (8.5-10.1); CARBON DIOXIDE LEVEL 29 MEQ/L (21-32); CHLORIDE LEVEL 104 MEQ/L (98-107); CREATININE FOR GFR 0.69 MG/DL (0.70-1.30); GLOMERULAR FILTRATION RATE > 60.0 (>56); GLUCOSE, FASTING 124 MG/DL (70-100); POTASSIUM SERUM 3.8 MEQ/L (3.5-5.1); SODIUM LEVEL 138 MEQ/L (136-145)
[2021-11-12] MEDS: PERCOCET 5MG/325MG TAB PO PRN (06:47)
[2021-11-12] MEDS ORDERED: HYDR50TA PO (08:05)
[2021-11-12] MEDS ORDERED: AMLO1TAB25 PO (08:05)
[2021-11-12] MEDS: ENOXAPARIN 40MG/0.4ML SYRINGE (J1650 PER 10MG) SC SCH (08:21)
[2021-11-12] MEDS: INSULIN LISPRO (NovoLOG) PER UNIT SC SCH ×2 (08:22→12:21)
[2021-11-12] MEDS: FLUoxetine 20MG CAP PO SCH (08:23)
[2021-11-12] MEDS: GABAPENTIN 400MG CAP PO SCH (08:23)
[2021-11-12] MEDS: DULoxetine 20 MG CAP (CYMBALTA) PO SCH (08:23)
[2021-11-12] MEDS: DOCUSATE SODIUM 100MG CAPSULE PO SCH (08:23)
[2021-11-12] MEDS: allopurinoL 300 MG TAB PO SCH (08:24)
[2021-11-12 08:25] VITALS: BP 158/91
[2021-11-12] MEDS: atenoloL 25 MG TAB PO SCH (08:25)
[2021-11-12] MEDS: **hydrALAZINE** 50 MG TAB PO SCH (08:26)
[2021-11-12] MEDS: VANCOMYCIN HCL 750 MG, VIAL MATE ADAPTER 1 EACH in NS 250 ML IV SCH (09:58)
[2021-11-12] MEDS: VANCOMYCIN HCL 500 MG in D5W MINI-BAG PLUS 100 ML IV SCH (11:19)
== END 2021-11-12 14:00 | disposition home health service (06) | DRG 638 ==
LOC: M ED 13:19 → M ED INP 19:21 → ENRESERV 22:21 → M MS5PR 23:09 → M PCU 11-09 04:23 → M MS5PR 11-10 10:00
PROVIDERS: ADMIT Internal Medicine Nephrology; ATTEND Internal Medicine Nephrology
PROC: 0HDNXZZ Extraction of Left Foot Skin, External Approach (ICD-10-PCS; principal; 2021-11-08)
DX: E11.628 Type 2 diabetes mellitus with other skin complications (principal); L02.612 Cutaneous abscess of left foot; Z68.41 Body mass index [BMI] 40.0-44.9, adult; B95.62 Methicillin resistant Staphylococcus aureus infection as the cause of diseases classified elsewhere; E11.40 Type 2 diabetes mellitus with diabetic neuropathy, unspecified; K75.81 Nonalcoholic steatohepatitis (NASH); E66.01 Morbid (severe) obesity due to excess calories; G47.33 Obstructive sleep apnea (adult) (pediatric); I10 Essential (primary) hypertension; M10.9 Gout, unspecified; K57.90 Diverticulosis of intestine, part unspecified, without perforation or abscess without bleeding; I16.0 Hypertensive urgency; F32.A Depression, unspecified; Z88.8 Allergy status to other drugs, medicaments and biological substances; M51.36 Other intervertebral disc degeneration, lumbar region; M75.42 Impingement syndrome of left shoulder; M47.812 Spondylosis without myelopathy or radiculopathy, cervical region; E78.5 Hyperlipidemia, unspecified; E03.9 Hypothyroidism, unspecified; Z79.84 Long term (current) use of oral hypoglycemic drugs; Z79.899 Other long term (current) drug therapy; Z88.1 Allergy status to other antibiotic agents; Z88.2 Allergy status to sulfonamides; Z86.16 Personal history of COVID-19

== ENCOUNTER → 2021-11-25 | Outpatient (CLI) | payer OTHER, MEDICARE ==
[~2021-11-25] MED LIST changes: +ACID100C PO; +ALLO300T2 PO; +ATEN50TA2 PO; +GABA800T4 PO; +HYDR50TA PO; +PERCOCET PO; +TRUL0.5I SC
[2021-11-25 15:40] LABS: BASO # 0.1 10^3/uL (0.0-0.2); BASO % 0.5 % (0.0-1.0); EOS # 0.2 10^3/uL (0.0-0.5); EOS % 1.5 % (0.0-3.0); HEMATOCRIT 43.4 % (42.0-52.0); HEMOGLOBIN 13.5 g/dl (13.5-17.5); LYMPH % 28.2 % (24.0-44.0); MEAN CORPUSCULAR HEMOGLOBIN 28.5 pg (27.0-33.0); MEAN CORPUSCULAR HGB CONC 31.1 g/dl (32.0-36.5); MEAN CORPUSCULAR VOLUME 91.6 fl (80.0-96.0); MONO # 0.9 10^3/uL (0.0-0.8); MONO % 8.8 % (2.0-8.0); NEUTROPHILS # 6.4 10^3/uL (1.5-8.5); PLATELET COUNT, AUTOMATED 369 10^3/uL (150-450); RED BLOOD COUNT 4.74 10^6/uL (4.30-6.10); WHITE BLOOD COUNT 10.6 10^3/uL (4.0-10.0)
[2021-11-25 15:45] LABS: ALBUMIN 3.3 GM/DL (3.2-5.2); ALT/SGPT 20 U/L (12-78); BILIRUBIN,TOTAL 0.5 MG/DL (0.2-1.0); BLOOD UREA NITROGEN 17 MG/DL (7-18); CALCIUM LEVEL 9.6 MG/DL (8.5-10.1); CARBON DIOXIDE LEVEL 30 MEQ/L (21-32); CHLORIDE LEVEL 106 MEQ/L (98-107); CHOLESTEROL LEVEL 180 MG/DL (<200); CHOLESTEROL RISK RATIO 3.913 (<5); CREATININE FOR GFR 1.06 MG/DL (0.70-1.30); FERRITIN 149 NG/ML (26-388); GLOMERULAR FILTRATION RATE > 60.0 (>56); GLUCOSE, FASTING 126 MG/DL (70-100); HDL CHOLESTEROL 46 MG/DL (>40); LDL CHOLESTEROL 78 MG/DL (<100); NON-HDL-C 134 MG/DL; POTASSIUM SERUM 4.6 MEQ/L (3.5-5.1); SODIUM LEVEL 141 MEQ/L (136-145); TOTAL PROTEIN 7.1 GM/DL (6.4-8.2); TRIGLYCERIDES LEVEL 281 MG/DL (<150); URIC ACID 5.2 MG/DL (3.5-7.2)
[2021-11-25 16:14] LABS: HEMOGLOBIN A1c 6.7 %
[2021-11-25 16:16] LABS: PTH INTACT 69.5 PG/ML (18.5-88.0); TOTAL 25(OH) VITAMIN D 23.7 NG/ML (30.0-100.0); VITAMIN B12 LEVEL 578 PG/ML (247-911)
== END ==
LOC: M PLALAB 12:06
PROVIDERS: ATTEND Family Medicine
DX: I10 Essential (primary) hypertension (principal); E11.8 Type 2 diabetes mellitus with unspecified complications; E55.9 Vitamin D deficiency, unspecified; E78.2 Mixed hyperlipidemia; M10.9 Gout, unspecified

== ENCOUNTER 2021-12-05 08:14 | Inpatient (IN) | payer MEDICARE, OTHER ==
[~2021-12-05] VITALS: Ht 190.5 cm; Wt 153.0 kg
[2021-12-05] MEDS ORDERED: GABAPENTIN 400MG CAP PO SCH (09:00)
[2021-12-05 09:19] LABS: BASO % 0.3 % (0.0-1.0); EOS # 0.2 10^3/uL (0.0-0.5); EOS % 1.6 % (0.0-3.0); HEMATOCRIT 39.3 % (42.0-52.0); HEMOGLOBIN 12.5 g/dl (13.5-17.5); LYMPH # 1.9 10^3/uL (1.5-5.0); LYMPH % 16.2 % (24.0-44.0); MEAN CORPUSCULAR HEMOGLOBIN 28.7 pg (27.0-33.0); MEAN CORPUSCULAR HGB CONC 31.8 g/dl (32.0-36.5); MEAN CORPUSCULAR VOLUME 90.3 fl (80.0-96.0); MONO # 1.2 10^3/uL (0.0-0.8); MONO % 9.7 % (2.0-8.0); NEUTROPHILS # 8.5 10^3/uL (1.5-8.5); NEUTROPHILS % 71.4 % (36.0-66.0); PLATELET COUNT, AUTOMATED 231 10^3/uL (150-450); RED BLOOD COUNT 4.35 10^6/uL (4.30-6.10); WHITE BLOOD COUNT 11.9 10^3/uL (4.0-10.0)
[2021-12-05 09:36] LABS: BLOOD UREA NITROGEN 18 MG/DL (7-18); CALCIUM LEVEL 9.5 MG/DL (8.5-10.1); CARBON DIOXIDE LEVEL 27 MEQ/L (21-32); CHLORIDE LEVEL 108 MEQ/L (98-107); CREATININE FOR GFR 0.94 MG/DL (0.70-1.30); FREE T4 1.07 NG/DL (0.76-1.46); GLOMERULAR FILTRATION RATE > 60.0 (>56); GLUCOSE, FASTING 166 MG/DL (70-100); POTASSIUM SERUM 3.8 MEQ/L (3.5-5.1); SODIUM LEVEL 143 MEQ/L (136-145)
[2021-12-05 09:42] LABS: RSV AMPLIFICATION NEGATIVE (NEGATIVE)
[2021-12-05] MEDS ORDERED: KETOROLAC 30 MG/ML 1ML VIAL IV ONE (11:20)
[2021-12-05] MEDS ORDERED: VENL150C43 PO (12:34)
[2021-12-05] MEDS ORDERED: ATEN50TA2 PO (13:33)
[2021-12-05] MEDS ORDERED: HOME MED LIST COMPLETE! XX SCH (13:35)
[2021-12-05] MEDS ORDERED: lisinopriL 40MG TAB PO ONE (14:15)
[2021-12-05] MEDS ORDERED: GABAPENTIN 400MG CAP PO ONE (14:15)
[2021-12-05] MEDS ORDERED: SIMVASTATIN 20 MG TAB PO ONE (14:15)
[2021-12-05] MEDS ORDERED: atenoloL 25 MG TAB PO ONE (14:15)
[2021-12-05] MEDS ORDERED: DEXTROSE 50% 50 ML SYRINGE IV PRN (14:25)
[2021-12-05] MEDS ORDERED: GLUCOSE 4GM CHEW TABLET PO PRN (14:25)
[2021-12-05] MEDS ORDERED: GLUCAGON INJ 1MG VIAL SC PRN (14:25)
[2021-12-05 15:07] LABS: HEMOGLOBIN A1c 6.4 %
[2021-12-05 16:30] VITALS: BP 165/96
[2021-12-05] MEDS: allopurinoL 300 MG TAB PO SCH (17:17)
[2021-12-05] MEDS: GABAPENTIN 400MG CAP PO SCH (17:18)
[2021-12-05] MEDS: KETOROLAC 30 MG/ML 1ML VIAL IV PRN (17:18)
[2021-12-05] MEDS: INSULIN LISPRO (NovoLOG) PER UNIT SC SCH ×2 (17:59→22:18)
[2021-12-05] MEDS ORDERED: FLUoxetine 20MG CAP PO ONE (21:00)
[2021-12-05] MEDS ORDERED: DULoxetine 20 MG CAP (CYMBALTA) PO ONE (21:00)
[2021-12-05] MEDS ORDERED: CYCLOBENZAPRINE 10MG TABLET PO SCH (21:00)
[2021-12-05 22:00] VITALS: BP 171/100
[2021-12-05] MEDS: SIMVASTATIN 20 MG TAB PO SCH (22:37)
[2021-12-05] MEDS: DULoxetine 20 MG CAP (CYMBALTA) PO SCH (22:38)
[2021-12-05] MEDS: RAMELTEON 8 MG TAB (ROZEREM) PO SCH (22:38)
[2021-12-05] MEDS: atenoloL 25 MG TAB PO SCH (22:39)
[2021-12-05] MEDS: ENOXAPARIN 40MG/0.4ML SYRINGE (J1650 PER 10MG) SC SCH (22:39)
[2021-12-05] MEDS: lisinopriL 40MG TAB PO SCH (22:39)
[2021-12-06 06:00] VITALS: BP 123/62
[2021-12-06] MEDS: LEVOTHYROXINE 112MCG TABLET (0.112MG) PO SCH (06:17)
[2021-12-06] MEDS: traMADol 50 MG TAB PO PRN ×2 (06:18→12:22)
[2021-12-06 06:55] LABS: HEMOGLOBIN A1c 6.4 %
[2021-12-06 07:07] LABS: ALBUMIN 2.9 GM/DL (3.2-5.2); ALT/SGPT 22 U/L (12-78); BILIRUBIN,TOTAL 0.8 MG/DL (0.2-1.0); BLOOD UREA NITROGEN 20 MG/DL (7-18); CARBON DIOXIDE LEVEL 26 MEQ/L (21-32); CHLORIDE LEVEL 110 MEQ/L (98-107); CREATININE FOR GFR 0.86 MG/DL (0.70-1.30); GLOMERULAR FILTRATION RATE > 60.0 (>56); GLUCOSE, FASTING 121 MG/DL (70-100); POTASSIUM SERUM 3.8 MEQ/L (3.5-5.1); SODIUM LEVEL 143 MEQ/L (136-145); TOTAL PROTEIN 6.1 GM/DL (6.4-8.2)
[2021-12-06] MEDS: INSULIN LISPRO (NovoLOG) PER UNIT SC SCH ×4 (07:30→20:22)
[2021-12-06] MEDS: GABAPENTIN 400MG CAP PO SCH (10:11)
[2021-12-06] MEDS: allopurinoL 300 MG TAB PO SCH (10:11)
[2021-12-06] MEDS: ENOXAPARIN 40MG/0.4ML SYRINGE (J1650 PER 10MG) SC SCH ×2 (10:11→20:22)
[2021-12-06] MEDS: DULoxetine 20 MG CAP (CYMBALTA) PO SCH ×2 (12:22→20:21)
[2021-12-06] MEDS: SODIUM CHLORIDE NASAL 0.65% SPRAY BTL (OCEAN) SCH ×3 (13:50→20:22)
[2021-12-06] MEDS: FLUTICASONE PROP 0.05% NASAL SPRAY 16 GM (FLONASE) NARES SCH (13:50)
[2021-12-06 14:00] VITALS: BP 123/60
[2021-12-06] MEDS: ONDANSETRON 4MG 2ML VIAL IV PRN (18:38)
[2021-12-06] MEDS: RAMELTEON 8 MG TAB (ROZEREM) PO SCH (20:21)
[2021-12-06] MEDS: lisinopriL 40MG TAB PO SCH (20:21)
[2021-12-06] MEDS: atenoloL 25 MG TAB PO SCH (20:22)
[2021-12-06] MEDS: SIMVASTATIN 20 MG TAB PO SCH (20:22)
[2021-12-06 22:00] VITALS: BP 134/78
[2021-12-07] MEDS: ACETAMINOPHEN TAB 650MG DOSE (2X325MG) PO PRN ×2 (00:54→17:30)
[2021-12-07] MEDS: ONDANSETRON 4MG 2ML VIAL IV PRN (04:31)
[2021-12-07] MEDS: KETOROLAC 30 MG/ML 1ML VIAL IV PRN ×2 (04:36→23:06)
[2021-12-07] MEDS: LEVOTHYROXINE 112MCG TABLET (0.112MG) PO SCH (05:20)
[2021-12-07 06:00] VITALS: BP 152/80
[2021-12-07 06:51] LABS: ALBUMIN 2.8 GM/DL (3.2-5.2); ALT/SGPT 26 U/L (12-78); BILIRUBIN,TOTAL 0.6 MG/DL (0.2-1.0); BLOOD UREA NITROGEN 16 MG/DL (7-18); CALCIUM LEVEL 8.4 MG/DL (8.5-10.1); CARBON DIOXIDE LEVEL 30 MEQ/L (21-32); CHLORIDE LEVEL 109 MEQ/L (98-107); CREATININE FOR GFR 0.81 MG/DL (0.70-1.30); GLOMERULAR FILTRATION RATE > 60.0 (>56); GLUCOSE, FASTING 116 MG/DL (70-100); POTASSIUM SERUM 3.8 MEQ/L (3.5-5.1); SODIUM LEVEL 143 MEQ/L (136-145); TOTAL PROTEIN 5.8 GM/DL (6.4-8.2)
[2021-12-07] MEDS: INSULIN LISPRO (NovoLOG) PER UNIT SC SCH ×4 (07:30→19:39)
[2021-12-07] MEDS: allopurinoL 300 MG TAB PO SCH (08:42)
[2021-12-07] MEDS: GABAPENTIN 400MG CAP PO SCH (08:43)
[2021-12-07] MEDS: FLUTICASONE PROP 0.05% NASAL SPRAY 16 GM (FLONASE) NARES SCH (08:43)
[2021-12-07] MEDS: SODIUM CHLORIDE NASAL 0.65% SPRAY BTL (OCEAN) SCH ×3 (08:43→20:42)
[2021-12-07] MEDS: ENOXAPARIN 40MG/0.4ML SYRINGE (J1650 PER 10MG) SC SCH ×2 (08:43→20:42)
[2021-12-07] MEDS: DULoxetine 20 MG CAP (CYMBALTA) PO SCH ×2 (08:43→20:41)
[2021-12-07 14:00] VITALS: BP 150/80
[2021-12-07] MEDS: amLODIPine 5 MG TAB PO SCH (17:31)
[2021-12-07] MEDS ORDERED: cefTRIAXone SOD 1 GM in D5W MINI-BAG PLUS 50 ML IV SCH (20:00)
[2021-12-07] MEDS: RAMELTEON 8 MG TAB (ROZEREM) PO SCH (20:41)
[2021-12-07] MEDS: SIMVASTATIN 20 MG TAB PO SCH (20:41)
[2021-12-07] MEDS: lisinopriL 40MG TAB PO SCH (20:43)
[2021-12-07] MEDS: atenoloL 25 MG TAB PO SCH (20:44)
[2021-12-07 22:00] VITALS: BP 158/87
[2021-12-08] MEDS: LEVOTHYROXINE 112MCG TABLET (0.112MG) PO SCH (05:25)
[2021-12-08 06:00] VITALS: BP 133/55
[2021-12-08 06:07] LABS: HEMATOCRIT 33.7 % (42.0-52.0); HEMOGLOBIN 10.5 g/dl (13.5-17.5); MEAN CORPUSCULAR HEMOGLOBIN 28.3 pg (27.0-33.0); MEAN CORPUSCULAR HGB CONC 31.2 g/dl (32.0-36.5); MEAN CORPUSCULAR VOLUME 90.8 fl (80.0-96.0); PLATELET COUNT, AUTOMATED 160 10^3/uL (150-450); RED BLOOD COUNT 3.71 10^6/uL (4.30-6.10); WHITE BLOOD COUNT 5.7 10^3/uL (4.0-10.0)
[2021-12-08 06:27] LABS: BLOOD UREA NITROGEN 17 MG/DL (7-18); CALCIUM LEVEL 8.7 MG/DL (8.5-10.1); CARBON DIOXIDE LEVEL 30 MEQ/L (21-32); CHLORIDE LEVEL 112 MEQ/L (98-107); CREATININE FOR GFR 0.84 MG/DL (0.70-1.30); GLOMERULAR FILTRATION RATE > 60.0 (>56); GLUCOSE, FASTING 89 MG/DL (70-100); POTASSIUM SERUM 3.9 MEQ/L (3.5-5.1); SODIUM LEVEL 147 MEQ/L (136-145)
[2021-12-08] MEDS: INSULIN LISPRO (NovoLOG) PER UNIT SC SCH (07:30)
[2021-12-08] MEDS: SODIUM CHLORIDE NASAL 0.65% SPRAY BTL (OCEAN) SCH (08:10)
[2021-12-08] MEDS: FLUTICASONE PROP 0.05% NASAL SPRAY 16 GM (FLONASE) NARES SCH (08:11)
[2021-12-08] MEDS: ENOXAPARIN 40MG/0.4ML SYRINGE (J1650 PER 10MG) SC SCH (08:11)
[2021-12-08 08:12] VITALS: BP 177/86
[2021-12-08] MEDS: DULoxetine 20 MG CAP (CYMBALTA) PO SCH (08:12)
[2021-12-08] MEDS: GABAPENTIN 400MG CAP PO SCH (08:12)
[2021-12-08] MEDS: amLODIPine 5 MG TAB PO SCH (08:12)
[2021-12-08] MEDS: ACETAMINOPHEN TAB 650MG DOSE (2X325MG) PO PRN (08:12)
[2021-12-08] MEDS: allopurinoL 300 MG TAB PO SCH (08:12)
[2021-12-08] MEDS ORDERED: ACET650T3 PO (09:27)
[2021-12-08] MEDS ORDERED: GABA-283 PO (09:27)
[2021-12-08] MEDS ORDERED: AMLO1TAB24 PO (09:27)
[2021-12-08] MEDS ORDERED: CEFD300C41 PO (09:27)
[2021-12-08 12:17] VITALS: BP 154/78
== END 2021-12-08 13:31 | disposition home health service (06) | DRG 563 ==
LOC: M ED 08:14 → M ED INP 13:58 → M MSPAV 16:20
PROVIDERS: ADMIT Internal Medicine; ATTEND Internal Medicine
DX: S89.391A Other physeal fracture of lower end of right fibula, initial encounter for closed fracture (principal); S22.31XA Fracture of one rib, right side, initial encounter for closed fracture; F33.9 Major depressive disorder, recurrent, unspecified; Z68.41 Body mass index [BMI] 40.0-44.9, adult; I10 Essential (primary) hypertension; E66.01 Morbid (severe) obesity due to excess calories; S82.831A Other fracture of upper and lower end of right fibula, initial encounter for closed fracture; M77.31 Calcaneal spur, right foot; R55 Syncope and collapse; G47.00 Insomnia, unspecified; E11.9 Type 2 diabetes mellitus without complications; M47.22 Other spondylosis with radiculopathy, cervical region; G47.33 Obstructive sleep apnea (adult) (pediatric); E03.9 Hypothyroidism, unspecified; Y99.8 Other external cause status; G43.709 Chronic migraine without aura, not intractable, without status migrainosus; Z79.890 Hormone replacement therapy; Z79.899 Other long term (current) drug therapy; Z79.84 Long term (current) use of oral hypoglycemic drugs; Z88.1 Allergy status to other antibiotic agents; Z88.2 Allergy status to sulfonamides; Z88.8 Allergy status to other drugs, medicaments and biological substances; W18.30XA Fall on same level, unspecified, initial encounter; Y92.59 Other trade areas as the place of occurrence of the external cause; Y93.89 Activity, other specified; M10.9 Gout, unspecified; Z56.0 Unemployment, unspecified; T43.215A Adverse effect of selective serotonin and norepinephrine reuptake inhibitors, initial encounter

== ENCOUNTER → 2021-12-10 | Outpatient (CLI) | payer OTHER, MEDICARE ==
[~2021-12-10] MED LIST changes: +ACET650T3 PO; +AMLO1TAB24 PO; +GABA-283 PO; +VENL150C43 PO
== END ==
LOC: M SOG 09:30
PROVIDERS: ATTEND Orthopaedic Surgery Adult Reconstructive Orthopaedic Surgery
DX: M25.571 Pain in right ankle and joints of right foot (principal)

== ENCOUNTER → 2022-01-22 | Outpatient (CLI) | payer OTHER, MEDICARE | LOC: M SOG 09:44 | PROVIDERS: ATTEND Orthopaedic Surgery Adult Reconstructive Orthopaedic Surgery | DX: S82.841A Displaced bimalleolar fracture of right lower leg, initial encounter for closed fracture (principal); W18.30XA Fall on same level, unspecified, initial encounter; Y92.009 Unspecified place in unspecified non-institutional (private) residence as the place of occurrence of the external cause ==

== ENCOUNTER → 2022-02-03 | Outpatient (CLI) | payer OTHER, MEDICARE ==
[2022-02-03 14:06] LABS: BASO # 0.1 10^3/uL (0.0-0.2); BASO % 0.3 % (0.0-1.0); EOS # 0.1 10^3/uL (0.0-0.5); EOS % 0.7 % (0.0-3.0); HEMATOCRIT 42.9 % (42.0-52.0); LYMPH # 2.1 10^3/uL (1.5-5.0); LYMPH % 14.3 % (24.0-44.0); MEAN CORPUSCULAR HEMOGLOBIN 29.2 pg (27.0-33.0); MEAN CORPUSCULAR HGB CONC 32.6 g/dl (32.0-36.5); MEAN CORPUSCULAR VOLUME 89.6 fl (80.0-96.0); MONO # 1.4 10^3/uL (0.0-0.8); MONO % 9.1 % (2.0-8.0); NEUTROPHILS # 11.1 10^3/uL (1.5-8.5); NEUTROPHILS % 74.9 % (36.0-66.0); PLATELET COUNT, AUTOMATED 362 10^3/uL (150-450); RED BLOOD COUNT 4.79 10^6/uL (4.30-6.10); WHITE BLOOD COUNT 14.9 10^3/uL (4.0-10.0)
[2022-02-03 14:24] LABS: ALBUMIN 3.2 GM/DL (3.2-5.2); ALT/SGPT 21 U/L (12-78); BILIRUBIN,TOTAL 0.9 MG/DL (0.2-1.0); BLOOD UREA NITROGEN 21 MG/DL (7-18); CALCIUM LEVEL 9.4 MG/DL (8.5-10.1); CARBON DIOXIDE LEVEL 27 MEQ/L (21-32); CHLORIDE LEVEL 102 MEQ/L (98-107); CREATININE FOR GFR 1.27 MG/DL (0.70-1.30); GLOMERULAR FILTRATION RATE > 60.0 (>56); GLUCOSE, FASTING 183 MG/DL (70-100); LIPASE 132 U/L (73-393); POTASSIUM SERUM 3.9 MEQ/L (3.5-5.1); SODIUM LEVEL 136 MEQ/L (136-145); TOTAL PROTEIN 6.9 GM/DL (6.4-8.2); URIC ACID 8.4 MG/DL (3.5-7.2)
[2022-02-03 14:34] LABS: ERYTHROCYTE SEDIMENTATION RATE 67 mm/hr (0-20)
== END ==
LOC: M PLALAB 11:16
PROVIDERS: ATTEND Physician Assistant
DX: M25.461 Effusion, right knee (principal)

== ENCOUNTER → 2022-02-11 | Outpatient (CLI) | payer OTHER, MEDICARE | LOC: M SOG 09:59 | PROVIDERS: ATTEND Orthopaedic Surgery Adult Reconstructive Orthopaedic Surgery | DX: S82.841D Displaced bimalleolar fracture of right lower leg, subsequent encounter for closed fracture with routine healing (principal); M17.0 Bilateral primary osteoarthritis of knee ==

== ENCOUNTER → 2022-02-16 | Outpatient (CLI) | payer OTHER, MEDICARE ==
[2022-02-16 16:23] LABS: BASO % 0.3 % (0.0-1.0); EOS # 0.1 10^3/uL (0.0-0.5); EOS % 0.8 % (0.0-3.0); LYMPH # 2.3 10^3/uL (1.5-5.0); LYMPH % 18.4 % (24.0-44.0); MEAN CORPUSCULAR HEMOGLOBIN 28.7 pg (27.0-33.0); MEAN CORPUSCULAR HGB CONC 31.8 g/dl (32.0-36.5); MEAN CORPUSCULAR VOLUME 90.2 fl (80.0-96.0); MONO # 0.9 10^3/uL (0.0-0.8); MONO % 7.1 % (2.0-8.0); NEUTROPHILS # 9.2 10^3/uL (1.5-8.5); NEUTROPHILS % 72.8 % (36.0-66.0); PLATELET COUNT, AUTOMATED 353 10^3/uL (150-450); RED BLOOD COUNT 4.88 10^6/uL (4.30-6.10); WHITE BLOOD COUNT 12.6 10^3/uL (4.0-10.0)
[2022-02-16 16:57] LABS: ALBUMIN 3.4 GM/DL (3.2-5.2); ALT/SGPT 22 U/L (12-78); BILIRUBIN,TOTAL 0.6 MG/DL (0.2-1.0); BLOOD UREA NITROGEN 17 MG/DL (7-18); CARBON DIOXIDE LEVEL 30 MEQ/L (21-32); CHLORIDE LEVEL 106 MEQ/L (98-107); CREATININE FOR GFR 1.01 MG/DL (0.70-1.30); GLOMERULAR FILTRATION RATE > 60.0 (>56); GLUCOSE, FASTING 117 MG/DL (70-100); NT-PRO BNP 678 PG/ML (<125); POTASSIUM SERUM 4.8 MEQ/L (3.5-5.1); SODIUM LEVEL 142 MEQ/L (136-145); TOTAL PROTEIN 6.8 GM/DL (6.4-8.2); URIC ACID 5.7 MG/DL (3.5-7.2)
[2022-02-16 17:20] LABS: ERYTHROCYTE SEDIMENTATION RATE 26 mm/hr (0-20)
== END ==
LOC: M LAB 15:06
PROVIDERS: ATTEND Family Medicine
DX: M10.9 Gout, unspecified (principal)

== ENCOUNTER → 2022-02-16 | Outpatient (CLI) | payer OTHER, MEDICARE | LOC: M RAD 15:00 | PROVIDERS: ATTEND Physician Assistant | DX: M70.12 Bursitis, left hand (principal) ==

== ENCOUNTER → 2022-02-24 | Outpatient (REF) | payer OTHER, MEDICARE | LOC: M SFHCPLAZ 10:00 | PROVIDERS: ATTEND Family Medicine | DX: L57.0 Actinic keratosis (principal) ==

== ENCOUNTER → 2022-05-06 | Outpatient (CLI) | payer OTHER, MEDICARE ==
[~2022-05-06] MED LIST changes: -DOXY-350 PO; +DOXY-444 PO
== END ==
LOC: M CARPUL 13:35
PROVIDERS: ATTEND Family Medicine
DX: I50.32 Chronic diastolic (congestive) heart failure (principal)

== ENCOUNTER → 2022-12-31 | Outpatient (REF) | payer MEDICARE, OTHER ==
[~2022-12-31] MED LIST changes: -GABA-283 PO; +GABA-284 PO
== END ==
LOC: M SFHCPLAZ 18:56
PROVIDERS: ATTEND Family Medicine
DX: E03.9 Hypothyroidism, unspecified (principal); E11.8 Type 2 diabetes mellitus with unspecified complications; I50.32 Chronic diastolic (congestive) heart failure; Z12.5 Encounter for screening for malignant neoplasm of prostate; I11.0 Hypertensive heart disease with heart failure

== ENCOUNTER → 2023-04-26 | Outpatient (REF) | payer MEDICARE ==
[~2023-04-26] MED LIST changes: +CEFD1CAP9 PO; -CEFD300C41 PO
== END ==
LOC: M SFHCPLAZ 15:27
PROVIDERS: ATTEND Family Medicine
DX: E11.8 Type 2 diabetes mellitus with unspecified complications (principal); I11.0 Hypertensive heart disease with heart failure; I50.32 Chronic diastolic (congestive) heart failure; Z12.5 Encounter for screening for malignant neoplasm of prostate; E03.9 Hypothyroidism, unspecified; K76.0 Fatty (change of) liver, not elsewhere classified

== ENCOUNTER → 2023-04-26 | Outpatient (CLI) | payer MEDICARE, MEDICAID ==
[2023-04-26 18:06] LABS: BASO # 0.1 10^3/uL (0.0-0.2); BASO % 0.4 % (0.0-1.0); EOS # 0.2 10^3/uL (0.0-0.5); EOS % 1.5 % (0.0-3.0); HEMATOCRIT 44.5 % (42.0-52.0); HEMOGLOBIN 15.2 g/dl (13.5-17.5); LYMPH # 2.2 10^3/uL (1.5-5.0); LYMPH % 19.4 % (24.0-44.0); MEAN CORPUSCULAR HEMOGLOBIN 30.8 pg (27.0-33.0); MEAN CORPUSCULAR HGB CONC 34.2 g/dl (32.0-36.5); MEAN CORPUSCULAR VOLUME 90.3 fl (80.0-96.0); MONO # 0.8 10^3/uL (0.0-0.8); MONO % 7.3 % (2.0-8.0); NEUTROPHILS # 8.1 10^3/uL (1.5-8.5); NEUTROPHILS % 70.8 % (36.0-66.0); PLATELET COUNT, AUTOMATED 268 10^3/uL (150-450); RED BLOOD COUNT 4.93 10^6/uL (4.30-6.10); WHITE BLOOD COUNT 11.4 10^3/uL (4.0-10.0)
[2023-04-26 18:19] LABS: INR 1.05; PROTHROMBIN TIME 13.4 SECONDS (12.5-14.5)
[2023-04-26 18:55] LABS: HEMOGLOBIN A1c 5.7 % (4.0-6.0)
== END ==
LOC: M PLALAB 15:35
PROVIDERS: ATTEND Family Medicine
DX: E11.8 Type 2 diabetes mellitus with unspecified complications (principal); I11.0 Hypertensive heart disease with heart failure; I50.32 Chronic diastolic (congestive) heart failure; E03.9 Hypothyroidism, unspecified; K76.0 Fatty (change of) liver, not elsewhere classified; E78.2 Mixed hyperlipidemia; Z12.5 Encounter for screening for malignant neoplasm of prostate

== ENCOUNTER → 2023-04-28 | Outpatient (REF) | payer MEDICARE, MEDICAID ==
[2023-04-28 16:13] LABS: PSA SCREENING 0.34 NG/ML (< 4.00)
[2023-04-28 16:15] LABS: ALBUMIN 3.5 G/DL (3.2-5.2); ALKALINE PHOSPHATASE 108 U/L (46-116); ALT/SGPT 19 U/L (7.0-40); AST/SGOT 15 U/L (<34); BILIRUBIN,TOTAL 0.6 MG/DL (0.3-1.2); BLOOD UREA NITROGEN 23 MG/DL (9-23); CALCIUM LEVEL 9.3 MG/DL (8.3-10.6); CARBON DIOXIDE LEVEL 30 MMOL/L (20-31); CHLORIDE LEVEL 108 MMOL/L (98-107); CHOLESTEROL LEVEL 175 MG/DL (<200); CHOLESTEROL RISK RATIO 4.51 (<5); CREATININE FOR GFR 0.94 MG/DL (0.70-1.30); GLOMERULAR FILTRATION RATE > 60.0 (>49); GLUCOSE, FASTING 148 MG/DL (74-106); HDL CHOLESTEROL 38.8 MG/DL (>40); LDL CHOLESTEROL 80.6 MG/DL (<100); NON-HDL-C 136.2 MG/DL; POTASSIUM SERUM 3.9 MMOL/L (3.5-5.1); SODIUM LEVEL 143 MMOL/L (136-145); TOTAL PROTEIN 6.4 G/DL (5.7-8.2); TRIGLYCERIDES LEVEL 278 MG/DL (<150)
[2023-04-28 16:17] LABS: FREE T4 1.15 NG/DL (0.89-1.76); THYROID STIMULATING HORMONE 1.995 uIU/ML (0.55-4.78)
== END ==
LOC: M LAB REF 04-27 11:47
PROVIDERS: ATTEND Family Medicine
DX: E11.8 Type 2 diabetes mellitus with unspecified complications (principal); I11.0 Hypertensive heart disease with heart failure; I50.32 Chronic diastolic (congestive) heart failure; K70.0 Alcoholic fatty liver; Z12.5 Encounter for screening for malignant neoplasm of prostate
CPT/HCPCS: 80053; 80061; 82105; 84439; 84443; G0103

== ENCOUNTER → 2024-05-02 | Outpatient (CLI) | payer MEDICARE, MEDICAID ==
[~2024-05-02] MED LIST changes: +DOXY-440 PO; -DOXY-444 PO; +FLUO-365 PO; -FLUO20CA22 PO; +GABA-1490 PO; +GABA-1635 PO; -GABA600T4 PO; -GABA800T4 PO; -HYDR50TA PO; +HYDR50TA47 PO
[2024-05-02 15:32] LABS: BASO % 0.3 % (0.0-1.0); EOS # 0.2 10^3/uL (0.0-0.5); EOS % 1.7 % (0.0-3.0); HEMATOCRIT 43.7 % (42.0-52.0); HEMOGLOBIN 14.1 g/dl (13.5-17.5); LYMPH # 2.2 10^3/uL (1.5-5.0); LYMPH % 20.7 % (24.0-44.0); MEAN CORPUSCULAR HEMOGLOBIN 29.9 pg (27.0-33.0); MEAN CORPUSCULAR HGB CONC 32.3 g/dl (32.0-36.5); MEAN CORPUSCULAR VOLUME 92.6 fl (80.0-96.0); MONO # 0.8 10^3/uL (0.0-0.8); MONO % 7.3 % (2.0-8.0); NEUTROPHILS # 7.4 10^3/uL (1.5-8.5); NEUTROPHILS % 69.4 % (36.0-66.0); PLATELET COUNT, AUTOMATED 288 10^3/uL (150-450); RED BLOOD COUNT 4.72 10^6/uL (4.30-6.10); WHITE BLOOD COUNT 10.6 10^3/uL (4.0-10.0)
[2024-05-02 15:33] LABS: PSA SCREENING 0.37 NG/ML (< 4.00)
[2024-05-02 15:36] LABS: FERRITIN 75.1 NG/ML (10.5-307.3)
[2024-05-02 15:37] LABS: ALBUMIN 3.6 G/DL (3.2-5.2); ALKALINE PHOSPHATASE 115 U/L (40-129); ALT/SGPT 14 U/L (7.0-40); AST/SGOT 12 U/L (<34); BILIRUBIN,TOTAL 0.5 MG/DL (0.3-1.2); BLOOD UREA NITROGEN 24 MG/DL (9-23); CALCIUM LEVEL 9.1 MG/DL (8.3-10.6); CARBON DIOXIDE LEVEL 30 MMOL/L (20-31); CHLORIDE LEVEL 103 MMOL/L (98-107); GLOMERULAR FILTRATION RATE > 60.0 (>49); GLUCOSE, FASTING 138 MG/DL (74-106); POTASSIUM SERUM 4.5 MMOL/L (3.5-5.1); SODIUM LEVEL 143 MMOL/L (136-145); THYROID STIMULATING HORMONE 1.785 uIU/ML (0.55-4.78); TOTAL PROTEIN 6.8 G/DL (5.7-8.2)
[2024-05-02 15:38] LABS: FREE T4 1.36 NG/DL (0.89-1.76)
[2024-05-02 15:39] LABS: URIC ACID 6.3 MG/DL (3.7-9.2)
[2024-05-02 15:52] LABS: HEMOGLOBIN A1c 5.7 % (4.0-6.0)
== END ==
LOC: M PLALAB 12:09
PROVIDERS: ATTEND Family Medicine
DX: E11.8 Type 2 diabetes mellitus with unspecified complications (principal); M10.9 Gout, unspecified; I10 Essential (primary) hypertension; Z12.5 Encounter for screening for malignant neoplasm of prostate; E03.9 Hypothyroidism, unspecified

== ENCOUNTER 2024-05-23 16:27 | Inpatient (IN) | payer MEDICARE, MEDICAID ==
[~2024-05-23] VITALS: Ht 190.5 cm; Wt 146.4 kg
[2024-05-23 17:09] LABS: BASO % 0.3 % (0.0-1.0); EOS # 0.1 10^3/uL (0.0-0.5); EOS % 1.2 % (0.0-3.0); HEMATOCRIT 43.1 % (42.0-52.0); HEMOGLOBIN 14.2 g/dl (13.5-17.5); LYMPH # 1.4 10^3/uL (1.5-5.0); LYMPH % 13.6 % (24.0-44.0); MEAN CORPUSCULAR HEMOGLOBIN 30.5 pg (27.0-33.0); MEAN CORPUSCULAR HGB CONC 32.9 g/dl (32.0-36.5); MEAN CORPUSCULAR VOLUME 92.5 fl (80.0-96.0); MONO # 0.8 10^3/uL (0.0-0.8); MONO % 8.2 % (2.0-8.0); NEUTROPHILS # 7.6 10^3/uL (1.5-8.5); PLATELET COUNT, AUTOMATED 253 10^3/uL (150-450); RED BLOOD COUNT 4.66 10^6/uL (4.30-6.10)
[2024-05-23] MEDS ORDERED: ISOVUE-370 76% 100ML VIAL As Ordered ONE (17:09)
[2024-05-23] MEDS ORDERED: MELO15TA28 (17:27)
[2024-05-23] MEDS ORDERED: GABA-1635 PO (17:27)
[2024-05-23 17:33] LABS: CK-MB VALUE MASS 1.2 NG/ML (<3.6)
[2024-05-23 17:35] LABS: MB/CK RELATIVE INDEX 2.4 (< OR =4)
[2024-05-23 18:13] LABS: INR 1.08; PARTIAL THROMBOPLASTIN TIME 23.7 SECONDS (24.8-34.2); PROTHROMBIN TIME 14.3 SECONDS (12.5-14.5)
[2024-05-23] MEDS: NS 500 ML IV ONE (18:13)
[2024-05-23] MEDS: KETOROLAC 30 MG/ML 1ML VIAL IV ONE (18:13)
[2024-05-23] MEDS: MORPHINE 4 MG/ML 1ML VIAL IV ONE (18:13)
[2024-05-23] MEDS ORDERED: SEMA0.257 INJ (18:41)
[2024-05-23] MEDS ORDERED: LORA-930 PO (18:41)
[2024-05-23] MEDS ORDERED: HOME MED LIST COMPLETE! XX SCH (18:45)
[2024-05-23 20:53] LABS: VENOUS BASE EXCESS -0.3 (-2.0-2.0); VENOUS HCO3 27.3 MMOL/L (23.0-27.0); VENOUS O2 SATURATION 72.1 % (60.0-80.0); VENOUS PARTIAL PRESSURE CO2 57.1 mmHg (38.0-50.0); VENOUS PARTIAL PRESSURE O2 38.9 mmHg (30.0-50.0); VENOUS PH 7.297 UNITS (7.330-7.430); VENOUS STANDARD HCO3 23.6 MMOL/L
[2024-05-23] MEDS: INSULIN LISPRO (NovoLOG) PER UNIT SC SCH (21:00)
[2024-05-23 21:20] LABS: HEMOGLOBIN A1c 5.7 % (4.0-6.0)
[2024-05-23] MEDS ORDERED: DEXTROSE 50% 50ML SYRINGE IV PRN (21:25)
[2024-05-23] MEDS ORDERED: GLUCAGON INJ 1MG VIAL SC PRN (21:25)
[2024-05-23] MEDS ORDERED: GLUCOSE 4 GM CHEW PO PRN (21:25)
[2024-05-23 21:52] LABS: CK-MB VALUE MASS < 1.0 NG/ML (<3.6); CPK CREATINE PHOSPHOKINASE 46 U/L (46-171); MB/CK RELATIVE INDEX 2.17 (< OR =4)
[2024-05-23 21:54] LABS: ALBUMIN 3.2 G/DL (3.2-5.2); ALKALINE PHOSPHATASE 107 U/L (40-129); ALT/SGPT 17 U/L (7.0-40); AST/SGOT 13 U/L (<34); BILIRUBIN,DIRECT 0.2 MG/DL (<0.4); BILIRUBIN,TOTAL 0.5 MG/DL (0.3-1.2); BLOOD UREA NITROGEN 25 MG/DL (9-23); CALCIUM LEVEL 7.8 MG/DL (8.3-10.6); CARBON DIOXIDE LEVEL 29 MMOL/L (20-31); CHLORIDE LEVEL 108 MMOL/L (98-107); CHOLESTEROL LEVEL 149 MG/DL (<200); CHOLESTEROL RISK RATIO 4.85 (<5); CREATININE FOR GFR 1.21 MG/DL (0.70-1.30); GLOMERULAR FILTRATION RATE > 60.0 (>49); GLUCOSE, FASTING 100 MG/DL (74-106); HDL CHOLESTEROL 30.7 MG/DL (>40); LDL CHOLESTEROL 76.7 MG/DL (<100); NON-HDL-C 118.3 MG/DL; SODIUM LEVEL 145 MMOL/L (136-145); TOTAL PROTEIN 5.8 G/DL (5.7-8.2); TRIGLYCERIDES LEVEL 208 MG/DL (<150)
[2024-05-23] MEDS: GABAPENTIN 400MG CAP PO SCH (22:24)
[2024-05-23] MEDS: SIMVASTATIN 20 MG TAB PO SCH (22:24)
[2024-05-23] MEDS: DULoxetine 20MG CAP (CYMBALTA) PO SCH (22:24)
[2024-05-23] MEDS: CYCLOBENZAPRINE 10MG TABLET PO SCH (22:24)
[2024-05-23 22:55] VITALS: BP 156/92; TEMP 97.2; O2SAT 95
[2024-05-23 23:00] VITALS: O2SAT 92
[2024-05-24] VITALS (17 sets, daily range): BP systolic 76–198; BP diastolic 47–95; TEMP 97.4–98.5; O2SAT 79–97
[2024-05-24] MEDS: ACETAMINOPHEN 325 MG TAB PO ONE (03:38)
[2024-05-24] MEDS: LEVOTHYROXINE 112MCG TABLET (0.112MG) PO SCH (05:42)
[2024-05-24 05:56] LABS: KETONE, URINE AUTO RFX NEGATIVE (NEGATIVE); LEUKOCYTE ESTERASE UR AUTO RFX NEGATIVE (NEGATIVE); MUCUS, URINE RFX SMALL (NEGATIVE); NITRITE, URINE AUTO RFX NEGATIVE (NEGATIVE); RBC, URINE AUTO RFX 13 /HPF (0-3); SQUAM EPITHELIAL CELL UR AURFX 2 /HPF (0-6)
[2024-05-24 05:57] LABS: WBC, URINE AUTO RFX 12 /HPF (0-3)
[2024-05-24] MEDS: allopurinoL 300 MG TAB PO SCH (08:16)
[2024-05-24] MEDS: LORATADINE 10 MG TAB PO SCH (08:17)
[2024-05-24] MEDS: INSULIN LISPRO (NovoLOG) PER UNIT SC SCH (08:17)
[2024-05-24] MEDS ORDERED: MIDAZOLAM INJ 2MG/2ML VIAL IV PRN (08:25)
[2024-05-24] MEDS: LORazepam 2 MG TAB PO ONE (10:04)
[2024-05-24] MEDS ORDERED: ACETAMINOPHEN 325 MG TAB PO PRN (10:55)
[2024-05-25] VITALS (11 sets, daily range): BP systolic 94–224; BP diastolic 56–115; TEMP 98–98.8; O2SAT 89–100
[2024-05-25 06:24] LABS: VENOUS BASE EXCESS 1.4 (-2.0-2.0); VENOUS HCO3 28.2 MMOL/L (23.0-27.0); VENOUS O2 SATURATION 82.2 % (60.0-80.0); VENOUS PARTIAL PRESSURE CO2 53.4 mmHg (38.0-50.0); VENOUS PH 7.341 UNITS (7.330-7.430); VENOUS STANDARD HCO3 25.4 MMOL/L; VENOUS TOTAL CO2 29.9 MMOL/L (24.0-28.0)
[2024-05-25 06:58] LABS: ALBUMIN 3.3 G/DL (3.2-5.2); ALKALINE PHOSPHATASE 115 U/L (40-129); ALT/SGPT 18 U/L (7.0-40); AST/SGOT 16 U/L (<34); BILIRUBIN,TOTAL 0.8 MG/DL (0.3-1.2); BLOOD UREA NITROGEN 31 MG/DL (9-23); CALCIUM LEVEL 8.7 MG/DL (8.3-10.6); CARBON DIOXIDE LEVEL 28 MMOL/L (20-31); CHLORIDE LEVEL 104 MMOL/L (98-107); CREATININE FOR GFR 1.02 MG/DL (0.70-1.30); GLOMERULAR FILTRATION RATE > 60.0 (>49); GLUCOSE, FASTING 108 MG/DL (74-106); SODIUM LEVEL 142 MMOL/L (136-145); TOTAL PROTEIN 6.4 G/DL (5.7-8.2)
[2024-05-25] MEDS: ASPIRIN 81MG ENTERIC TABLET PO SCH (09:00)
[2024-05-25] MEDS: LABETALOL 100MG/20ML VIAL IV ONE (09:11)
[2024-05-25] MEDS: EXCEDRIN MIGRAINE TABLET PO PRN (14:34)
[2024-05-25] MEDS: CLOPIDOGREL 75 MG TAB PO SCH (16:00)
[2024-05-25] MEDS: atenoloL 25 MG TAB PO SCH (21:03)
[2024-05-26 00:44] VITALS: BP 162/99; TEMP 98.6; O2SAT 95
[2024-05-26 00:48] VITALS: BP_SYST 120; BP_SYST 157; BP_SYST 162; BP_DIAS 79; BP_DIAS 98; BP_DIAS 99
[2024-05-26 03:25] VITALS: BP 177/77; TEMP 97.5; O2SAT 90
[2024-05-26 03:28] VITALS: BP_SYST 131; BP_SYST 140; BP_SYST 177; BP_DIAS 77; BP_DIAS 87; BP_DIAS 92
[2024-05-26 07:58] VITALS: BP 172/80; TEMP 97.6; O2SAT 95
[2024-05-26 09:09] VITALS: BP 164/73
[2024-05-26] MEDS: amLODIPine 5 MG TAB PO SCH (09:09)
[2024-05-26] MEDS: PANTOPRAZOLE 40MG TAB (PROTONIX) PO SCH (09:10)
[2024-05-26] MEDS ORDERED: GABA-1171 PO (12:13)
[2024-05-26] MEDS ORDERED: ASPI81TAEC PO (12:13)
[2024-05-26] MEDS ORDERED: PANT40TA29 PO (12:13)
[2024-05-26] MEDS ORDERED: CLOP75TA2 PO (12:13)
[2024-05-26] MEDS ORDERED: AMLO1TAB24 PO (12:13)
[2024-05-26] MEDS ORDERED: GABAPENTIN 100 MG CAP PO SCH (21:00)
== END 2024-05-26 16:00 | disposition home or self-care (01) | DRG 69 ==
LOC: EDBD 16:27 → M ED 16:27 → M ED INP 21:19 → EEVIPCON 21:19 → M PCU 22:52
PROVIDERS: ADMIT Family Medicine; ATTEND Student in an Organized Health Care Education/Training Program
PROC: B246ZZZ Ultrasonography of Right and Left Heart (ICD-10-PCS; principal; 2024-05-24)
DX: G45.9 Transient cerebral ischemic attack, unspecified (principal); F33.9 Major depressive disorder, recurrent, unspecified; I95.1 Orthostatic hypotension; I10 Essential (primary) hypertension; E78.5 Hyperlipidemia, unspecified; E11.9 Type 2 diabetes mellitus without complications; M10.9 Gout, unspecified; D50.9 Iron deficiency anemia, unspecified; E66.9 Obesity, unspecified; F51.05 Insomnia due to other mental disorder; K75.81 Nonalcoholic steatohepatitis (NASH); E06.3 Autoimmune thyroiditis; M47.816 Spondylosis without myelopathy or radiculopathy, lumbar region; M48.061 Spinal stenosis, lumbar region without neurogenic claudication; M47.817 Spondylosis without myelopathy or radiculopathy, lumbosacral region; M48.07 Spinal stenosis, lumbosacral region; N28.1 Cyst of kidney, acquired; G47.33 Obstructive sleep apnea (adult) (pediatric); M47.812 Spondylosis without myelopathy or radiculopathy, cervical region; M75.41 Impingement syndrome of right shoulder; M75.42 Impingement syndrome of left shoulder; Z79.84 Long term (current) use of oral hypoglycemic drugs; Z79.82 Long term (current) use of aspirin; Z79.02 Long term (current) use of antithrombotics/antiplatelets; Z79.899 Other long term (current) drug therapy; Z88.1 Allergy status to other antibiotic agents; Z88.2 Allergy status to sulfonamides; Z88.8 Allergy status to other drugs, medicaments and biological substances

== ENCOUNTER → 2024-05-26 | Outpatient (CLI) | payer MEDICARE, MEDICAID ==
[~2024-05-26] MED LIST changes: +ASPI81TAEC PO; +CLOP75TA2 PO; +GABA-1171 PO; +LORA-930 PO; +MELO15TA28; +PANT40TA29 PO; +SEMA0.257 INJ
== END ==
LOC: M EKG 16:31
PROVIDERS: ATTEND Student in an Organized Health Care Education/Training Program
DX: G45.9 Transient cerebral ischemic attack, unspecified (principal)

== ENCOUNTER → 2024-07-11 | Outpatient (CLI) | payer MEDICARE, MEDICAID | LOC: M SLEEP HO 11:12 | PROVIDERS: ATTEND Physician Assistant | DX: G47.33 Obstructive sleep apnea (adult) (pediatric) (principal) ==

== ENCOUNTER → 2025-01-24 | Outpatient (CLI) | payer MEDICARE, MEDICAID ==
[~2025-01-24] MED LIST changes: +LISI40TA10 PO; -LISI40TA4 PO
[2025-01-24 15:24] LABS: PSA SCREENING 0.41 NG/ML (< 4.00)
[2025-01-24 15:25] LABS: BASO # 0.0 10^3/uL (0.0-0.2); BASO % 0.4 % (0.0-1.0); EOS # 0.2 10^3/uL (0.0-0.5); EOS % 2.3 % (0.0-3.0); LYMPH # 1.7 10^3/uL (1.5-5.0); LYMPH % 20.1 % (24.0-44.0); MONO # 0.6 10^3/uL (0.0-0.8); MONO % 7.5 % (2.0-8.0); NEUTROPHILS # 5.8 10^3/uL (1.5-8.5); NEUTROPHILS % 69.3 % (36.0-66.0); PLATELET COUNT, AUTOMATED 288 10^3/uL (150-450)
[2025-01-24 15:29] LABS: FREE T4 1.66 NG/DL (0.89-1.76)
[2025-01-24 15:30] LABS: ALT/SGPT 14.0 U/L (7.0-40); AST/SGOT 14.0 U/L (<34); CALCIUM LEVEL 8.9 MG/DL (8.3-10.6); CARBON DIOXIDE LEVEL 30.0 MMOL/L (20-31); CHLORIDE LEVEL 106.0 MMOL/L (98-107); CHOLESTEROL LEVEL 136.0 MG/DL (<200); CHOLESTEROL RISK RATIO 3.04 (<5); CREATININE FOR GFR 1.16 MG/DL (0.70-1.30); GLOMERULAR FILTRATION RATE 71.2 (>49); LDL CHOLESTEROL 71.0 MG/DL (<100); NON-HDL-C 91.4 MG/DL; POTASSIUM SERUM 4.2 MMOL/L (3.5-5.1); SODIUM LEVEL 142.0 MMOL/L (136-145); TRIGLYCERIDES LEVEL 102.0 MG/DL (<150)
[2025-01-24 15:32] LABS: TOTAL 25(OH) VITAMIN D 44.5 NG/ML (20.0-100.0)
[2025-01-24 15:36] LABS: PTH INTACT 41.8 PG/ML (18.5-88.0)
[2025-01-24 15:55] LABS: ESTIMATED AVERAGE GLUCOSE 103.0 MG/DL (60-110)
== END ==
LOC: M PLALAB 13:10
PROVIDERS: ATTEND Family Medicine
DX: E11.8 Type 2 diabetes mellitus with unspecified complications (principal); I10 Essential (primary) hypertension; E03.9 Hypothyroidism, unspecified; Z12.5 Encounter for screening for malignant neoplasm of prostate; I77.810 Thoracic aortic ectasia; E55.9 Vitamin D deficiency, unspecified
CPT/HCPCS: 36415; 80053; 80061; 82306; 82728; 83036; 83970; 84439; 84443; 84550; 85025; G0103